=== PATIENT | male | born 1960 | race Caucasian/White ===

== ENCOUNTER 2021-06-21 13:14 | Inpatient (IN) ==
[2021-06-21] MEDS ORDERED: SODIUM CHLORIDE 0.9% 250 ML IV PRN ×2 (13:35→14:15)
[2021-06-21] MEDS ORDERED: SODIUM CHLORIDE 0.9% 1000ML 2,000 ML IV SCH (13:45)
--- NOTE | 2021-06-21 14:11 | XRay Report ---
XR chest 1V portable CLINICAL HISTORY: Weakness. Confusion. COMPARISON STUDY: No previous studies for comparison. FINDINGS: Diffuse sclerosis of the visualized skeletal structures is noted. Cardiac size is normal. N o pneumothorax or pleural effusion is present. No evidence for pulmonary edema. Equivocal left midlun g opacity is present. Old fracture of the posterolateral right fifth rib is present. IMPRESSION: 1. Skeletal heterogeneity and sclerosis. This is suspicious for metastatic disease such as prostate c arcinoma. 2. Equivocal left midlung opacity. This is likely artifactual or related to rib lesions however airsp neris disease could appear similar. This can be assessed on follow-up radiographs. ACT 112: Negative or not required by law. Electronically signed by: Tobi Hutson M.D. 06/21/2021 2:10 PM
[2021-06-21 14:14] LABS: Hematocrit (blood only) 19.3 % (42-52); Hemoglobin 6.2 g/dL (14.0-18.0); Mean Corpuscular Hgb Conc 32.1 g/dL (32-36); Mean Corpuscular Volume 83.9 fL (80-100); RDW Coefficient of Variation 16.1 % (11.5-14.5); RDW Standard Deviation 48.7 fL (36.4-46.3); White Blood Count 11.25 K/uL (4.8-10.8)
[2021-06-21 14:25] LABS: Alanine Aminotransferase 8 U/L (7-52); Albumin Globulin Ratio 0.8 (0.9-2); Alkaline Phosphatase 317 U/L (34-104); Anion Gap 16 (3-11); Aspartate Aminotransferase 19 U/L (13-39); BUN Creatinine Ratio 25.6 (10-20); Bilirubin,Total 0.6 mg/dl (0.2-1.0); Blood Urea Nitrogen 34 mg/dl (6-23); Calcium 8.3 mg/dl (8.5-10.1); Carbon Dioxide 18 mmol/L (21-32); Chloride 99 mmol/L (98-107); Est GFR (African American) 66.4 ml/min; Est GFR (Non-African American) 57.3 ml/min; Globulin 3.9 gm/dl (2.5-4.0); Glucose 190 mg/dl (70-99(Fasting)); Magnesium 2.2 mg/dl (1.7-2.4); Mean Platelet Volume 9.4 fL (7.4-10.4); Nucleated RBC # (auto) 0.19 K/uL (0-0); Nucleated RBC % (auto) 1.7 %; Platelet Count 83 K/uL (130-400); Potassium 4.2 mmol/L (3.5-5.1); Sodium 133 mmol/L (136-145); Total Protein 6.9 gm/dl (6.0-8.3)
[2021-06-21 14:26] LABS: Basophils # (auto) 0.02 K/uL (0-0.2); Basophils % (auto) 0.2 %; Eosinophils # (auto) 0.02 K/uL (0-0.5); Eosinophils % (auto) 0.2 %; Immature Granulocytes # (auto) 0.87 K/uL (0.00-0.02); Immature Granulocytes % (auto) 7.7 %; Lymphocytes # (auto) 1.13 K/uL (1.2-3.4); Monocytes # (auto) 0.43 K/uL (0.11-0.59); Monocytes % (auto) 3.8 %; Neutrophils # (auto) 8.78 K/uL (1.4-6.5); Neutrophils % (auto) 78.1 %; Platelet Estimate Decreased (Normal)
[2021-06-21] MEDS ORDERED: OPTIRAY 320 100ml IV ONE (15:40)
--- NOTE | 2021-06-21 15:56 | Emergency Department Note ---
Impression & Plan Gross hematuria, Hip pain, bilateral, Hyponatremia, Bone metastasis ED Provider Note CHIEF COMPLAINT: Weakness, cory metastasis. HISTORY OF PRESENT ILLNESS: This 61 yo male patient presents to the emergency department with complaints of generalized weakness, hip pain and gross hematuria. Patient states he has lost a significant amount of weight. He was here several weeks ago and diagnosed with abnormal imaging of his hips. It appears that the patient may have metastatic process in both hips on plain film. Patient states he does not have a doctor but has recently tried to set up with a physician and believes he is scheduled to see them tomorrow in the [facility] system. 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 Patient works for the [employer]. Patient states he is very weak and having great difficulty getting to the bathroom. He states he has on occasion lost control of his bladder, which he attributes to weakness and inability to get to the bathroom. Denies fevers, chills, chest pain, shortness of breath. REVIEW OF SYSTEMS: A review of systems was performed with positives and pe rtinent negatives listed in the history of present illness. 10 systems were reviewed and are otherwise negative. ALLERGIES: see below MEDICATIONS: see below PMH: see below SOCIAL HISTORY: see below DDx: Renal colic, UTI, hemorrhagic prostate, bladder mass, appendicitis, diverticulitis, mesenteric ischemia, aortic pathology, infections, inflammatory bowel disease, PUD, biliary pathology, as well as other pathologies. PHYSICAL EXAM: Vital signs reviewed. General: Chronically ill-appearing, thin and frail 61-year-old male, in no significant distress. HEENT: No scleral icterus, PERRLA, neck supple. Pale conjunctiva Cardiovascular: Tachycardic but regular, no extra sounds. Pulmonary: Clear to auscultation bilaterally, normal work of breathing. Abdomen: Soft, nontender, nondistended, positive bowel sounds. Musculoskeletal: Atraumatic, no peripheral edema. Neurologic: Patient awake alert and oriented x 3, speech is clear Skin: Warm, dry, no rash EMERGENCY DEPARTMENT COURSE/MDM: Patient was evaluated and appeared to be in no significant distress. IV access was obtained and laboratory work was drawn. Patient was placed on a color television console monitor and appeared to be in a sinus ta chycardia with hypotension. Patient's laboratory work reveals anemia with a hemoglobin of 7.7. The patient is also noted to be hypotensive into the 80s systolic. Patient was consented for PRBCs. 1 unit was started in the emergency department. Patient will require hospitalization as he does not have a current primary care provider or oncologist. He does not have a definitive diagnosis. Patient's case was discussed with hospitalist service who will evaluate the patient for admission and further management. MONITORING: An order for cardiac monitoring was placed and the patient is noted to be in a sinus tachycardia at 108 beats per minute. RADIOLOGY: See below EKG: Sinus tachycardia 101 bpm. Normal axis, normal ST segments. Normal QTC. No PVC, no PAC. DISPOSITION: Admission Past Med/Surg History Medical History (Updated 06/29/21 @ 23:34 by Dorita Orta MD) Bladder cancer metastasized to bone No pertinent past medical history Surgical History No pertinent past surgical history Family History Mother Bone cancer Father Throat cancer Social History Smoking Status: Current every day smoker Tobacco Type: Cigarettes Cigarettes Per Day: 20; Hx Alcohol Use: Yes Alcohol type: beer Alcohol Intake Frequency: 4 or More x per/Week Alcohol Intake Frequency Comment: 2-3 beers/day Hx Substance Use: No Preferred Language: French Communication Ability: Effective 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 Beliefs That Will Affect Care: None Current Living Situation: Alone How many Children do You have: 0 Other Information That Helps Us Care for You: No Feels Safe at Home: Yes Safety Concerns: Feels Safe At This Time Assistive Devices: None Allergies Allergies Allergy/AdvReac Type Severity Reaction Status Date / Time No Known Allergies Allergy Unverified 06/21/21 15:06 Home Meds Home Medications Medication Instructions Recorded Confirmed No Known Home Medications 06/21/21 06/21/21 Results & Data (ED) Vital Signs Vital Signs - 24 hr 06/21/21 13:18 06/21/21 14:08 06/21/21 14:09 Temperature 36.5 C Temperature Source Temporal Artery Scan Pulse Rate 113 H Pulse Rate [Apical] 102 H Pulse Rhythm [Apical] Regular Respiratory Rate 19 20 Respiratory Effort / Characteristics Non-Labored Spontaneous Non-Labored Respiratory Depth Normal Normal Respiratory Pattern Regular Blood Pressure 88/50 L Blood Pressure Mean 62 Blood Pressure Position Sitting Pulse Oximetry 99 99 99 Oxygen Delivery Method Room Air Room Air Room Air Sepsis Recent Fever Within 48 Hours No Sepsis New/Unexplained Change in Mental Status N/A Sepsis Action Taken by Nursing Physician Notified Home Medications Current Medication List: was personally reviewed by me Laboratory Data Attestation: I reviewed the patient's lab results. Result diagrams: 06/29/21 07:28 06/29/21 07:28 Lab Results 06/21/21 06/21/21 06/21/21 Range/Units 13:45 13:45 13:45 WBC 11.25 H (4.8-10.8) K/uL RBC 2.30 L (4.7-6.1) M/uL Hgb 6.2 L* (14.0-18.0) g/dL Hct 19.3 L* (42-52) % MCV 83.9 (80-100) fL MCH 27.0 (25-34) pg MCHC 32.1 (32-36) g/dL RDW Std Deviation 48.7 H (36.4-46.3) fL RDW Coeff of Marva 16.1 H (11.5-14.5) % Plt Count 83 L (130-400) K/uL MPV 9.4 (7.4-10.4) fL Immature Gran % (Auto) 7.7 % Neut % (Auto) 78.1 % Lymph % (Auto) 10.0 % Perry % (Auto) 3.8 % Eos % (Auto) 0.2 % Baso % (Auto) 0.2 % Neut # (Auto) 8.78 H (1.4-6.5) K/uL Lymph # (Auto) 1.13 L (1.2-3.4) K/uL Perry # (Auto) 0.43 (0.11-0.59) K/uL Eos # (Auto) 0.02 (0-0.5) K/uL Baso # (Auto) 0.02 (0-0.2) K/uL Immature Gran # (Auto) 0.87 H (0.00-0.02) K/uL Absolute Nucleated RBC 0.19 H (0-0) K/uL Nucleated RBC % (auto) 1.7 % Platelet Estimate Decreased L (Normal) Sodium 133 L (136-145) mmol/L Potassium 4.2 (3.5-5.1) mmol/L Chloride 99 (98-107) mmol/L Carbon Dioxide 18 L (21-32) mmol/L Anion Gap 16 H (3-11) BUN 34 H (6-23) mg/dl Creatinine 1.33 (0.6-1.4) mg/dl Est Cr Clr Drug Dosing Not Reportable Est GFR ( Amer) 66.4 ml/min Est GFR (Non-Af Amer) 57.3 ml/min BUN/Creatinine Ratio 25.6 H (10-20) Glucose 190 H (70-99(Fasting)) mg/dl Lactate 4.8 H* (0.4-2.0) mmol/L Calcium 8.3 L (8.5-10.1) mg/dl Magnesium 2.2 (1.7-2.4) mg/dl Total Bilirubin 0.6 (0.2-1.0) mg/dl AST 19 (13-39) U/L ALT 8 (7-52) U/L Alkaline Phosphatase 317 H (34-104) U/L Total Protein 6.9 (6.0-8.3) gm/dl Albumin 3.0 L (3.4-5.0) gm/dl Globulin 3.9 (2.5-4.0) gm/dl Albumin/Globulin Ratio 0.8 L (0.9-2) Prostate Specific Ag (0-4) ng/ml TSH (0.300-4.500) uIu/ml SARS-CoV-2, RNA, NAAT (NEGATIVE) Blood Type Blood Type Recheck Antibody Screen Crossmatch 06/21/21 06/21/21 06/21/21 Range/Units 13:45 13:48 14:33 WBC (4.8-10.8) K/uL RBC (4.7-6.1) M/uL Hgb (14.0-18.0) g/dL Hct (42-52) % MCV (80-100) fL MCH (25-34) pg MCHC (32-36) g/dL RDW Std Deviation (36.4-46.3) fL RDW Coeff of Marva (11.5-14.5) % Plt Count (130-400) K/uL MPV (7.4-10.4) fL Immature Gran % (Auto) % Neut % (Auto) % Lymph % (Auto) % Perry % (Auto) % Eos % (Auto) % Baso % (Auto) % Neut # (Auto) (1.4-6.5) K/uL Lymph # (Auto) (1.2-3.4) K/uL Perry # (Auto) (0.11-0.59) K/uL Eos # (Auto) (0-0.5) K/uL Baso # (Auto) (0-0.2) K/uL Immature Gran # (Auto) (0.00-0.02) K/uL Absolute Nucleated RBC (0-0) K/uL Nucleated RBC % (auto) % Platelet Estimate (Normal) Sodium (136-145) mmol/L Potassium (3.5-5.1) mmol/L Chloride (98-107) mmol/L Carbon Dioxide (21-32) mmol/L Anion Gap (3-11) BUN (6-23) mg/dl Creatinine (0.6-1.4) mg/dl Est Cr Clr Drug Dosing Est GFR ( Amer) ml/min Est GFR (Non-Af Amer) ml/min BUN/Creatinine Ratio (10-20) Glucose (70-99(Fasting)) mg/dl Lactate (0.4-2.0) mmol/L Calcium (8.5-10.1) mg/dl Magnesium (1.7-2.4) mg/dl Total Bilirubin (0.2-1.0) mg/dl AST (13-39) U/L ALT (7-52) U/L Alkaline Phosphatase (34-104) U/L Total Protein (6.0-8.3) gm/dl Albumin (3.4-5.0) gm/dl Globulin (2.5-4.0) gm/dl Albumin/Globulin Ratio (0.9-2) Prostate Specific Ag (0-4) ng/ml TSH 4.137 (0.300-4.500) uIu/ml SARS-CoV-2, RNA, NAAT (NEGATIVE) Blood Type A Negative Blood Type Recheck A Negative Antibody Screen NEGATIVE Crossmatch See Detail 06/21/21 06/21/21 Range/Units 14:33 14:33 WBC (4.8-10.8) K/uL RBC (4.7-6.1) M/uL Hgb (14.0-18.0) g/dL Hct (42-52) % MCV (80-100) fL MCH (25-34) pg MCHC (32-36) g/dL RDW Std Deviation (36.4-46.3) fL RDW Coeff of Marva (11.5-14.5) % Plt Count (130-400) K/uL MPV (7.4-10.4) fL Immature Gran % (Auto) % Neut % (Auto) % Lymph % (Auto) % Perry % (Auto) % Eos % (Auto) % Baso % (Auto) % Neut # (Auto) (1.4-6.5) K/uL Lymph # (Auto) (1.2-3.4) K/uL Perry # (Auto) (0.11-0.59) K/uL Eos # (Auto) (0-0.5) K/uL Baso # (Auto) (0-0.2) K/uL Immature Gran # (Auto) (0.00-0.02) K/uL Absolute Nucleated RBC (0-0) K/uL Nucleated RBC % (auto) % Platelet Estimate (Normal) Sodium (136-145) mmol/L Potassium (3.5-5.1) mmol/L Chloride (98-107) mmol/L Carbon Dioxide (21-32) mmol/L Anion Gap (3-11) BUN (6-23) mg/dl Creatinine (0.6-1.4) mg/dl Est Cr Clr Drug Dosing Est GFR ( Amer) ml/min Est GFR (Non-Af Amer) ml/min BUN/Creatinine Ratio (10-20) Glucose (70-99(Fasting)) mg/dl Lactate (0.4-2.0) mmol/L Calcium (8.5-10.1) mg/dl Magnesium (1.7-2.4) mg/dl Total Bilirubin (0.2-1.0) mg/dl AST (13-39) U/L ALT (7-52) U/L Alkaline Phosphatase (34-104) U/L Total Protein (6.0-8.3) gm/dl Albumin (3.4-5.0) gm/dl Globulin (2.5-4.0) gm/dl Albumin/Globulin Ratio (0.9-2) Prostate Specific Ag 0.874 (0-4) ng/ml TSH (0.300-4.500) uIu/ml SARS-CoV-2, RNA, NAAT NEGATIVE (NEGATIVE) Blood Type Blood Type Recheck Antibody Screen Crossmatch Administered Medications Acetaminophen (Acetaminophen 325 Mg Tab) 650 mg PO Q4H PRN PRN Reason: Pain or Fever Stop: 07/21/21 21:18 Last Admin: 06/26/21 08:28 Dose: 650 mg Documented by: [id number] Admin: 06/25/21 20:37 Dose: 650 mg Documented by: [id number] Admin: 06/25/21 11:14 Dose: 650 mg Documented by: [id number] Admin: 06/24/21 23:26 Dose: 650 mg Documented by: [id number] Admin: 06/23/21 07:18 Dose: 650 mg Documented by: [id number] Admin: 06/22/21 11:45 Dose: 650 mg Documented by: [id number] Diclofenac Sodium (Diclofenac Sod 1% Gel 100 Gm Tube) 4 gm EXT Q8H TONG Stop: 07/28/21 11:44 Last Admin: 06/29/21 21:06 Dose: 4 gm Documented by: [id number] Admin: 06/29/21 13:06 Dose: 4 gm Documented by: [id number] Admin: 06/29/21 03:07 Dose: 4 gm Documented by: [id number] Admin: 06/28/21 20:11 Dose: 4 gm Documented by: [id number] Admin: 06/28/21 13:53 Dose: 4 gm Documented by: [id number] Gabapentin (Gabapentin 300 Mg Cap) 300 mg PO HS TONG Stop: 07/27/21 20:59 Last Admin: 06/29/21 21:07 Dose: 300 mg Documented by: [id number] Admin: 06/28/21 20:11 Dose: 300 mg Documented by: [id number] Admin: 06/27/21 21:49 Dose: 300 mg Documented by: [id number] Lidocaine (Lidocaine 5% 1 Patch) 1 patch TD QAM TONG Stop: 07/23/21 11:59 Last Admin: 06/29/21 08:28 Dose: 1 patch Documented by: [id number] Admin: 06/28/21 08:03 Dose: 1 patch Documented by: [id number] Admin: 06/27/21 08:42 Dose: 1 patch Documented by: [id number] Admin: 06/26/21 08:28 Dose: 1 patch Documented by: [id number] Admin: 06/25/21 08:44 Dose: 1 patch Documented by: [id number] Admin: 06/24/21 07:11 Dose: 1 patch Documented by: [id number] Admin: 06/23/21 12:34 Dose: 1 patch Documented by: [id number] Metoprolol Tartrate (Metoprolol Tartrate 25 Mg Tab) 25 mg PO BID [facility] Stop: 07/29/21 20:59 Last Admin: 06/29/21 21:07 Dose: 25 mg Documented by: [id number] Miscellaneous (Remove Lidoderm Patch) 1 ea N/A DAILY@2100 [facility] Stop: 07/23/21 20:59 Last Admin: 06/29/21 21:07 Dose: 1 ea Documented by: [id number] Admin: 06/28/21 20:13 Dose: 1 ea Documented by: [id number] Admin: 06/27/21 21:51 Dose: 1 ea Documented by: [id number] Admin: 06/26/21 21:33 Dose: 1 ea Documented by: [id number] Admin: 06/25/21 21:29 Dose: 1 ea Documented by: [id number] Admin: 06/24/21 21:15 Dose: 1 ea Documented by: [id number] Admin: 06/23/21 21:21 Dose: 1 ea Documented by: [id number] Nicotine (Nicotine 14 Mg/24 Hr Patch) 14 mg TD QAM [facility] Stop: 07/29/21 10:59 Last Admin: 06/29/21 13:06 Dose: Not Given Documented by: [id number] Oxycodone HCl (Oxycodone Hcl Ir 5 Mg Tab (Immediate Release)) 5 mg PO Q4H PRN PRN Reason: Severe Pain Stop: 07/10/21 08:10 Last Admin: 06/29/21 21:08 Dose: 5 mg Documented by: [id number] Admin: 06/29/21 15:54 Dose: 5 mg Documented by: [id number] Admin: 06/29/21 08:26 Dose: 5 mg Documented by: [id number] Admin: 06/29/21 03:06 Dose: 5 mg Documented by: [id number] Admin: 06/28/21 17:58 Dose: 5 mg Documented by: [id number] Oxycodone HCl (Oxycodone Hcl 10 Mg Tabcr (Oxycontin)) 10 mg PO Q12H TONG Stop: 07/13/21 10:59 Last Admin: 06/29/21 23:07 Dose: 10 mg Documented by: [id number] Admin: 06/29/21 13:06 Dose: 10 mg Documented by: [id number] Senna/Docusate Sodium (Docusate Sodium/Senna 50/8.6mg Tab) 1 tab PO BID [facility] Stop: 07/29/21 20:59 Last Admin: 06/29/21 21:08 Dose: 1 tab Documented by: [id number] Discontinued Medications Acetaminophen (Acetaminophen 325 Mg Tab) 650 mg PO NOW STA Stop: 06/22/21 01:01 Last Admin: 06/22/21 01:07 Dose: 650 mg Documented by: [id number] Flumazenil (Flumazenil 0.1 Mg/1 Ml 10 Ml Vial) Confirm Administered Dose 1 mg IV .STK-MED ONE Stop: 06/24/21 13:12 Last Admin: 06/24/21 14:32 Dose: Not Given Documented by: [id number] Sodium Chloride (Nss 1000ml) 2,000 mls @ 999 mls/hr IV .Q2H1M TONG Stop: 06/21/21 15:45 Last Infusion: 06/21/21 17:48 Dose: 0 mls/hr Documented by: [id number] Admin: 06/21/21 14:12 Dose: 999 mls/hr Documented by: [id number] Sodium Chloride (Nss 1000ml) 500 mls @ 999 mls/hr IV .Q31M ONE Stop: 06/22/21 16:38 Last Infusion: 06/22/21 17:00 Dose: 0 mls/hr Documented by: [id number] Admin: 06/22/21 16:29 Dose: 999 mls/hr Documented by: [id number] Ciprofloxacin (Cipro / D5w) 400 mg in 200 mls @ 100 mls/hr IV PREOP TONG; Protocol Stop: 06/25/21 09:59 Last Infusion: 06/25/21 09:17 Dose: 0 mls/hr Documented by: [id number] Admin: 06/25/21 06:15 Dose: 100 mls/hr Documented by: [id number] Infusion: 06/24/21 14:12 Dose: 0 mls/hr Documented by: [id number] Admin: 06/24/21 12:02 Dose: 100 mls/hr Documented by: [id number] Ioversol (Optiray 320 100ml) 92 ml IV ONCE ONE Stop: 06/21/21 15:41 Last Admin: 06/21/21 15:44 Dose: 92 ml Documented by: [id number] Metoprolol Tartrate (Metoprolol Tartrate 25 Mg Tab) 12.5 mg PO BID [facility] Stop: 07/28/21 10:29 Last Admin: 06/29/21 08:27 Dose: 12.5 mg Documented by: [id number] Admin: 06/28/21 20:11 Dose: 12.5 mg Documented by: [id number] Admin: 06/28/21 13:53 Dose: 12.5 mg Documented by: [id number] Ondansetron HCl (Ondansetron 4 Mg Od Tab) 8 mg PO TODAY@1200 [facility] Stop: 06/29/21 19:00 Last Admin: 06/29/21 13:06 Dose: 8 mg Documented by: [id number] Oxycodone HCl (Oxycodone Hcl Ir 5 Mg Tab (Immediate Release)) 5 mg PO Q6H PRN PRN Reason: Severe Pain Stop: 07/10/21 08:10 Last Admin: 06/28/21 08:03 Dose: 5 mg Documented by: [id number] Admin: 06/27/21 21:49 Dose: 5 mg Documented by: [id number] Admin: 06/27/21 14:17 Dose: 5 mg Documented by: [id number] Admin: 06/27/21 06:42 Dose: 5 mg Documented by: [id number] Admin: 06/26/21 16:37 Dose: 5 mg Documented by: [id number] Admin: 06/26/21 10:06 Dose: 5 mg Documented by: [id number] Senna/Docusate Sodium (Docusate Sodium/Senna 50/8.6mg Tab) 1 tab PO QAM [facility] Stop: 07/26/21 08:59 Last Admin: 06/29/21 08:28 Dose: Not Given Documented by: [id number] Admin: 06/28/21 08:06 Dose: Not Given Documented by: [id number] Admin: 06/27/21 08:42 Dose: 1 tab Documented by: [id number] Admin: 06/26/21 10:06 Dose: 1 tab Documented by: [id number] Tramadol HCl (Tramadol Hcl 50 Mg Tablet) 50 mg PO Q4H PRN PRN Reason: Severe Pain Stop: 07/23/21 11:49 Last Admin: 06/25/21 07:46 Dose: 50 mg Documented by: [id number] Admin: 06/24/21 21:15 Dose: 50 mg Documented by: [id number] Admin: 06/24/21 14:32 Dose: 50 mg Documented by: [id number] Admin: 06/24/21 07:13 Dose: 50 mg Documented by: [id number] Tramadol HCl (Tramadol Hcl 50 Mg Tablet) 50 mg PO Q4H PRN PRN Reason: Moderate Pain Stop: 07/23/21 11:49 Last Admin: 06/27/21 12:31 Dose: 50 mg Documented by: [id number] Imaging Data Radiologist's Impression: Chest X-Ray 06/21/21 13:34 XR chest 1V portable CLINICAL HISTORY: Weakness. Confusion. COMPARISON STUDY: No previous studies for comparison. FINDINGS: Diffuse sclerosis of the visualized skeletal structures is noted. Cardiac size is normal. No pneumothorax or pleural effusion is present. No evidence for pulmonary edema. Equivocal left midlung opacity is present. Old fracture of the posterolateral right fifth rib is present. IMPRESSION: 1. Skeletal heterogeneity and sclerosis. This is suspicious for metastatic disease such as prostate carcinoma. 2. Equivocal left midlung opacity. This is likely artifactual or related to rib lesions however airspace disease could appear similar. This can be assessed on follow-up radiographs. ACT 112: Negative or not required by law. Electronically signed by: Tobi Hutson M.D. 06/21/2021 2:10 PM ECG Data Attestation: I personally reviewed and interpreted this ECG as follows: (Sinus tachycardia 101 bpm. Normal QTC, normal ST segments. No PVC, no PAC.) Blood Pressure Blood Pressure Findings: Low blood pressure Blood Pressure Disposition: further management by hospitalist Discharge Plan Visit Data Chief Complaint: Shortness of Breath/Dyspnea Stated Complaint: SOB, SHOULDER PAIN, HIP PAIN, DIZZY ED Provider: Dorita Orta Discharge Problem: Gross hematuria, Hip pain, bilateral, Hyponatremia, Bone metastasis Patient Disposition: Admitted As Inpatient Discharge Instructions Interventions: ED Discharge Assessment Last Done: 06/21/21 19:36
--- NOTE | 2021-06-21 16:05 | CT Scan Report ---
CT SCAN OF THE CHEST WITH IV CONTRAST CLINICAL HISTORY: Anemia. Metastatic bone disease. Dyspnea. COMPARISON STUDY: Chest x-ray dated 06/21/2021. TECHNIQUE: Following the IV administration of 92 cc of Optiray 320, CT scan of the thorax was perform ed from the thoracic inlet to the upper abdomen. Images are reviewed in the axial, sagittal, and thuy nal planes. IV contrast was administered without complication. A dose lowering technique was utilize d adhering to the principles of ALARA. FINDINGS: Thyroid: Imaged portions of the thyroid gland are normal in size and attenuation. Thoracic aorta: There is mild atherosclerotic calcification of the thoracic aorta, which is normal in caliber and demonstrates standard 3-vessel arch anatomy. No dissection is seen. Pulmonary vasculature: The pulmonary trunk is normal in caliber. There are no filling defects identif ied in the central pulmonary vessels to indicate pulmonary embolus. Note that this examination was no t protocoled for evaluation of the pulmonary arteries. Heart: The heart is mildly enlarged and without pericardial effusion. The coronary arteries are dense ly calcified. Lungs and pleural spaces: Mild emphysematous change is identified. There is a small right pleural eff usion with dependent atelectasis. No airspace consolidation is seen typical for pneumonia. The trache a and central airways are clear. A 3 mm pleural-based nodule in the left upper lobe as seen on image #117. Foci of patchy nodularity in the left upper lobe measuring up to 4 mm is seen on image #108. Lower neck: There are mildly enlarged left supraclavicular lymph nodes. A union contract representative node on imag e #20 measures 1.7 x 1.1 cm. Mediastinum: A prominent pretracheal node on image #87 measures 12 mm in short axis. Kiesha: Mildly enlarged right hilar nodes measure up to 12 mm in short axis. Axillae: There are shotty axillary nodes which are not pathologically enlarged by size criteria. Upper abdomen: Bilateral hydronephrosis is partially visualized. Mildly enlarged cardiophrenic nodes measure up to 10 mm in short axis. Partially visualized upper abdominal viscera is within normal limi ts. Skeletal structures: There is evidence of extensive/diffuse osteoblastic metastatic disease seen thro ughout the bony thorax. There are pathologic fractures of the right anterior 2nd rib, the left sports bookmaker ior 8th rib, and the right transverse process of T9. There are minimal superior endplate compression deformities of T2 and T3. IMPRESSION: 1. Cardiomegaly and emphysema. 2. Small right pleural effusion. 3. There is evidence of extensive/diffuse osteoblastic metastatic disease as above. 4. Pathologic fractures as above. 5. There are mildly enlarged left supraclavicular, mediastinal, and right hilar lymph nodes. These ar e suspicious for metastatic disease. 6. There is a tiny cluster of nodules in the left upper lobe measuring up to 4 mm. These are likely o n an inflammatory basis. Attention at follow-up is recommended. 7. Bilateral hydronephrosis is partially visualized in the upper abdomen. 8. Additional findings as above ACT 112: Negative or not required by law. Electronically signed by: Celestino Chavez M.D. 06/21/2021 4:04 PM
--- NOTE | 2021-06-21 16:09 | CT Scan Report ---
ABDOMEN AND PELVIS CT WITH IV CONTRAST CT DOSE: 678.18 mGy.cm HISTORY: Acute weakness with shortness of breath mets CA, hematuria, anemia TECHNIQUE: Multiaxial CT images of the abdomen and pelvis were performed following the IV administrat ion of 92 cc of Optiray, A dose lowering technique was utilized adhering to the principles of ALARA. COMPARISON STUDY: Chest CT of same day FINDINGS: Imaged inferior cardiac chambers are unremarkable. Prominent epicardial lymph nodes. Trace left and s mall right pleural effusions. Mild subsegmental bibasilar atelectasis. No pneumatosis or pneumoperito neum. The spleen, pancreas and adrenal glands are unremarkable. The gallbladder and liver are within normal limits. Patency of the hepatic and portal veins. There is moderate to severe bilateral hydroureteronephrosis. Mild atrophy of the right kidney compare d to the left with right-sided delayed nephrogram. No urolith identified. There is irregular urinary bladder wall thickening with a mass involving greater than 50% of the urinary bladder wall, most pron ounced posteriorly and along the right lateral margin overall measuring up to approximately 11 x 2.4 cm. There is transmural spread of disease to the right lateral aspect of the urinary bladder into the right paracentral tissues. There are a few soft tissue nodules within the right perivesicular distri bution measuring up to 1.2 cm. Atherosclerosis of the aorta without aneurysm. Prominent iliac and ing uinal chain lymph nodes measure up to 8-9 mm. No bowel obstruction. Mild wall thickening of the rectum is likely secondary to partial distention. N o CT evidence of acute appendicitis. There is mild generalized body wall edema. Extensive osseous met astasis. No acute pathologic fracture identified. There is questioned anterior epidural spread of dis ease at L5. Moderate associated central canal stenosis. IMPRESSION: 1. Large infiltrative mass of the urinary bladder is suggestive of a primary malignancy which demonst rates transmural spread of disease into the right perivesicular tissues and right hemipelvis. There a re small adjacent soft tissue nodules compatible with local metastasis. 2. The mass results in obstruction of the distal ureters with moderate to severe bilateral hydrourete ronephrosis. There is a delayed right-sided nephrogram. 3. Extensive osseous metastatic disease with questioned anterior epidural disease at L5. No acute pat hologic fracture identified 4. Prominent subcentimeter iliac chain and inguinal lymph nodes are suspicious for lymphatic metastas is. 5. Please refer to chest CT of same day for additional findings. 6. Additional findings as above. ACT 112: Negative or not required by law. The above report was generated using voice recognition software. It may contain grammatical, syntax o r spelling errors. Electronically signed by: Miguel Rolon M.D. 06/21/2021 4:07 PM
--- NOTE | 2021-06-21 16:45 | History & Physical Report ---
Date of Service June 21, 2021 Assessment & Plan (1) Acute blood loss anemia: Plan: Admit to telemetry Patient presenting from home with reports of lightheadedness, dizziness, shortness of breath, hematuria. Seen in the ED a few weeks ago for bilateral hip pain. X-ray at that time showed osseous metastatic disease, patient referred for outpatient follow-up. Patient states that he made an appointment at [facility] clinic for 06/23. In the ED, Hgb 6.2 Likely acute blood loss anemia due to profound hematuria Initially hypotensive 88/50, improved after IVF Transfused unit PRBC, follow H&H (2) Bladder mass: (3) Osseous metastasis: Plan: CT ABD/pelvis shows Large infiltrative mass of the urinary bladder is suggestive of a primary malignancy which demonstrates transmural spread of disease into the right perivesicular tissues and right hemipelvis. There are small adjacent soft tissue nodules compatible with local metastasis. The mass results in obstruction of the distal ureters with moderate to severe bilateral hydroureteronephrosis. There is a delayed right-sided nephrogram. Extensive osseous metastatic disease with questioned anterior epidural disease at L5. No acute pathologic fracture identified. Prominent subcentimeter iliac chain and inguinal lymph nodes are suspicious for lymphatic metastasis. CT chest shows evidence of extensive/diffuse osteoblastic metastatic disease. There are mildly enlarged left supraclavicular, mediastinal, and right hilar lymph nodes. These are suspicious for metastatic disease. There is a tiny cluster of nodules in the left upper lobe measuring up to 4 mm. These are likely on an inflammatory basis. Attention at follow-up is recommended. Place Mclaughlin Check PSA Urology consult NPO after midnight for possible biopsy (4) Lactic acidosis: Plan: Lactic acid 4.8 --> 1.3 Hypovolemia, underlying malignancy likely contributing No infectious source identified to suggest sepsis (5) Thrombocytopenia: Plan: Platelets 83K Likely due to underlying malignancy Follow CBC (6) Cardiomegaly: Plan: Noted on CT chest, check echo (7) DVT prophylaxis: Plan: SCDs due to hematuria, anemia History of Present Illness Chief Complaint: Lightheadedness, dizziness, urinating blood Primary Care Provider: NO PCP 61-year-old male without significant past medical or surgical history who presents the ED for evaluation of lightheadedness, dizziness, urinating blood. Patient seen in the ED on 2/24 for complaints of bilateral hip pain. Hip x-ray showed evidence of bony metastatic disease. Patient was discharged home and advised for outpatient follow-up. Patient reports he has an appointment at [facility] in a couple of days. Patient reports ongoing " pain all over". This morning, patient reports he was very lightheaded and dizzy and short of breath. He has been urinating blood for the past 2 to 3 weeks. Reports passing clots that have been difficult to pass at times. He has been urinating frequently. He notes a large weight loss however cannot quantify the amount for me. Denies chest pain. No abdominal pain, nausea, vomiting, diarrhea. In the ED, labs show Hgb 6.2, platelets 83, creatinine 1.3, lactic acid 4.8. CT ABD/pelvis shows large infiltrative mass of the urinary bladder. Patient was initially hypotensive at 88/50, this improved with IVF. Patient was typed and crossed for 2 unit PRBC. Allergies Allergy/AdvReac Type Severity Reaction Status Date / Time No Known Allergies Allergy Unverified 06/21/21 15:06 Home Medications Medication Instructions Recorded Confirmed Type No Known Home Medications 06/21/21 06/21/21 History Past Med/Surg History Medical History No pertinent past medical history Surgical History No pertinent past surgical history Family History (Updated 06/21/21 @ 16:46 by JORDAN Nicholson) Mother Bone cancer Father Throat cancer Social History (Updated 06/21/21 @ 16:50 by JORDAN Nicholson) Smoking Status: Current every day smoker Tobacco Type: Cigarettes Hx Alcohol Use: Yes Alcohol type: beer Alcohol Intake Frequency: 4 or More x per/Week Alcohol Intake Frequency Comment: 2-3 beers/day Preferred Language: Chinese Feels Safe at Home: Yes Review of Systems Review of Systems: ROS per HPI, all other systems reviewed and negative Physical Exam Constitutional: WD/WN, vitals as above Eyes: PERRL, conjunctivae normal, anicteric sclerae ENMT: external ear and nose normal, oropharynx normal Respiratory: normal respiratory effort, lungs clear to auscultation Cardiovascular: Rate/Rhythm: regular rate and regular rhythm Vessels: normal peripheral pulses Extremities: no edema Gastrointestinal (Abdomen): normal bowel sounds, soft, nontender, no hepatosplenomegaly Musculoskeletal: Extremities: no cyanosis and no clubbing Lower extremity range of motion and movement limited due to pain Skin: no rashes, warm and dry Neurologic: PERRL, EOMI, accommodation nl, no face palsy, no dysarthria Psychiatric: A+Ox3, euthymic affect Results & Data Results & Data ([place]) Vital Signs (Past 12 Hours) Vital Signs Temp Pulse Pulse Resp BP Pulse Ox 06/21/21 16:00 36.6 C 99 H 18 119/66 99 06/21/21 14:09 102 H 20 99 06/21/21 14:08 99 06/21/21 13:18 36.5 C 113 H 19 88/50 L 99 Laboratory Results Short CBC 06/21/21 Range/Units 13:45 WBC 11.25 H (4.8-10.8) K/uL Hgb 6.2 L* (14.0-18.0) g/dL Hct 19.3 L* (42-52) % Plt Count 83 L (130-400) K/uL BMP 06/21/21 13:45 Sodium 133 L Potassium 4.2 Chloride 99 Carbon Dioxide 18 L BUN 34 H Creatinine 1.33 Glucose 190 H Calcium 8.3 L Liver Function 06/21/21 Range/Units 13:45 Total Bilirubin 0.6 (0.2-1.0) mg/dl AST 19 (13-39) U/L ALT 8 (7-52) U/L Alkaline Phosphatase 317 H (34-104) U/L Albumin 3.0 L (3.4-5.0) gm/dl Diagnostic Findings Chest X-Ray 06/21/21 13:34 XR chest 1V portable CLINICAL HISTORY: Weakness. Confusion. COMPARISON STUDY: No previous studies for comparison. FINDINGS: Diffuse sclerosis of the visualized skeletal structures is noted. Cardiac size is normal. No pneumothorax or pleural effusion is present. No evidence for pulmonary edema. Equivocal left midlung opacity is present. Old fracture of the posterolateral right fifth rib is present. IMPRESSION: 1. Skeletal heterogeneity and sclerosis. This is suspicious for metastatic disease such as prostate carcinoma. 2. Equivocal left midlung opacity. This is likely artifactual or related to rib lesions however airspace disease could appear similar. This can be assessed on follow-up radiographs. ACT 112: Negative or not required by law. Electronically signed by: Tobi Hutson M.D. 06/21/2021 2:10 PM Abdomen/Pelvis CT 06/21/21 15:[address] WITH IV CONTRAST CT DOSE: 678.18 mGy.cm HISTORY: Acute weakness with shortness of breath mets CA, hematuria, anemia TECHNIQUE: Multiaxial CT images of the abdomen and pelvis were performed following the IV administration of 92 cc of Optiray, A dose lowering technique was utilized adhering to the principles of ALARA. COMPARISON STUDY: Chest CT of same day FINDINGS: Imaged inferior cardiac chambers are unremarkable. Prominent epicardial lymph nodes. Trace left and small right pleural effusions. Mild subsegmental bibasilar atelectasis. No pneumatosis or pneumoperitoneum. The spleen, pancreas and adrenal glands are unremarkable. The gallbladder and liver are within normal limits. Patency of the hepatic and portal veins. There is moderate to severe bilateral hydroureteronephrosis. Mild atrophy of the right kidney compared to the left with right-sided delayed nephrogram. No uro lith identified. There is irregular urinary bladder wall thickening with a mass involving greater than 50% of the urinary bladder wall, most pronounced posteriorly and along the right lateral margin overall measuring up to approximately 11 x 2.4 cm. There is transmural spread of disease to the right lateral aspect of the urinary bladder into the right paracentral tissues. There are a few soft tissue nodules within the right perivesicular distribution measuring up to 1.2 cm. Atherosclerosis of the aorta without aneurysm. Prominent iliac and inguinal chain lymph nodes measure up to 8-9 mm. No bowel obstruction. Mild wall thickening of the rectum is likely secondary to partial distention. No CT evidence of acute appendicitis. There is mild generalized body wall edema. Extensive osseous metastasis. No acute pathologic fracture identified. There is questioned anterior epidural spread of disease at L5. Moderate associated central canal stenosis. IMPRESSION: 1. Large infiltrative mass of the urinary bladder is suggestive of a primary malignancy which demonstrates transmural spread of disease into the right perivesicular tissues and right hemipelvis. There are small adjacent soft tissue nodules compatible with local metastasis. 2. The mass results in obstruction of the distal ureters with moderate to severe bilateral hydroureteronephrosis. There is a delayed right-sided nephrogram. 3. Extensive osseous metastatic disease with questioned anterior epidural disease at L5. No acute pathologic fracture identified 4. Prominent subcentimeter iliac chain and inguinal lymph nodes are suspicious for lymphatic metastasis. 5. Please refer to chest CT of same day for additional findings. 6. Additional findings as above. ACT 112: Negative or not required by law. The above report was generated using voice recognition software. It may contain grammatical, syntax or spelling errors. Electronically signed by: Miguel Rolon M.D. 06/21/2021 4:[address] 06/21/21 15:06 CT SCAN OF THE CHEST WITH IV CONTRAST CLINICAL HISTORY: Anemia. Metastatic bone disease. Dyspnea. COMPARISON STUDY: Chest x-ray dated 06/21/2021. TECHNIQUE: Following the IV administration of 92 cc of Optiray 320, CT scan of the thorax was performed from the thoracic inlet to the upper abdomen. Images are reviewed in the axial, sagittal, and coronal planes. IV contrast was administered without complication. A dose lowering technique was utilized adhering to the principles of ALARA. FINDINGS: Thyroid: Imaged portions of the thyroid gland are normal in size and attenuation. Thoracic aorta: There is mild atherosclerotic calcification of the thoracic aorta, which is normal in caliber and demonstrates standard 3-vessel arch anatomy. No dissection is seen. Pulmonary vasculature: The pulmonary trunk is normal in caliber. There are no filling defects identified in the central pulmonary vessels to indicate pulmonary embolus. Note that this examination was not protocoled for evaluation of the pulmonary arteries. Heart: The heart is mildly enlarged and without pericardial effusion. The coronary arteries are densely calcified. Lungs and pleural spaces: Mild emphysematous change is identified. There is a small right pleural effusion with dependent atelectasis. No airspace consolidation is seen typical for pneumonia. The trachea and central airways are clear. A 3 mm pleural-based nodule in the left upper lobe as seen on image #117. Foci of patchy nodularity in the left upper lobe measuring up to 4 mm is seen on image #108. Lower neck: There are mildly enlarged left supraclavicular lymph nodes. A hardware supplies sales representative node on image #20 measures 1.7 x 1.1 cm. Mediastinum: A prominent pretracheal node on image #87 measures 12 mm in short axis. Kiesha: Mildly enlarged right hilar nodes measure up to 12 mm in short axis. Axillae: There are shotty axillary nodes which are not pathologically enlarged by size criteria. Upper abdomen: Bilateral hydronephrosis is partially visualized. Mildly enlarged cardiophrenic nodes measure up to 10 mm in short axis. Partially visualized upper abdominal viscera is within normal limits. Skeletal structures: There is evidence of extensive/diffuse osteoblastic metastatic disease seen throughout the bony thorax. There are pathologic fractures of the right anterior 2nd rib, the left posterior 8th rib, and the right transverse process of T9. There are minimal superior endplate compression deformities of T2 and T3. IMPRESSION: 1. Cardiomegaly and emphysema. 2. Small right pleural effusion. 3. There is evidence of extensive/diffuse osteoblastic metastatic disease as above. 4. Pathologic fractures as above. 5. There are mildly enlarged left supraclavicular, mediastinal, and right hilar lymph nodes. These are suspicious for metastatic disease. 6. There is a tiny cluster of nodules in the left upper lobe measuring up to 4 mm. These are likely on an inflammatory basis. Attention at follow-up is recommended. 7. Bilateral hydronephrosis is partially visualized in the upper abdomen. 8. Additional findings as above ACT 112: Negative or not required by law. Electronically signed by: Celestino Chavez M.D. 06/21/2021 4:04 PM Code Status & VTE Plan Code Status Patient is a full code as per my discussion with him. Patient states that he does not have any family to identify as a decision-maker for him in the event he were to be unable to make decisions for himself. VTE Prophylaxis Plan VTE Prophylaxis will be ordered: Yes Supervising Physician Co-Signing Physician Notes Pt is a 61 y/o M with hx of possible prostate Ca/ cancer with metastasis admitted for symptomatic anemia. PE: Appeared fatigued Lungs: CTA, no wheezing or crackles Card: Normal S1/S2, no murmur Abd: ND, NT, Soft MSK: no swelling but pain with movement of b/l hips Psych: AAOx3, normal affect A/P: Hematuria with Symptomatic anemia and thrombocytopenia: -2/2 Possible metastatic bladder cancer (per imaging) - pt is currently receiving 2 units of PRBC - will trend cbc -Urology consult -will put a mclaughlin in -SCD for DVT PPx -Lactic acid is elevated likely due to anemia and hypotension - BP is improving - due to cardiomegaly will get echo Agree with A/P by JORDAN Nicholson
[2021-06-21 19:00] LABS: Appearance Urine Clear (Clear); Bilirubin Urine Negative (Negative); Blood Urine 3+ (Negative); Color Urine Red; Glucose Urine UA Negative (Negative); Ketones Urine Negative (Negative); Leukocyte Esterase Urine Negative (Negative); Nitrite Urine Negative (Negative); Protein Urine 3+ (Negative); Urobilinogen Urine Positive (Negative); pH Urine 5.5 (4.5-7.5)
[2021-06-21 19:03] LABS: Bacteria Urine Negative (Negative); Epithelial Cell Urine 0-5 /lpf (0-5); RBC Urine >30 /hpf (0-4)
--- NOTE | 2021-06-21 23:40 | Urology Consultation ---
Date of Consultation June 21, 2021 Assessment & Plan (1) Bladder mass: Patient has been admitted on the hospitalist service. Due to the patient's underlying bladder mass he will likely require a cystoscopy with possible biopsy and clot evacuation in the future. The timing of this procedure is yet to be determined as the patient requires stabilization of his blood counts. He did come into the hospital with marked anemia his current receiving transfusion of packed red blood cells. It would also be prudent to monitor patient's platelet count particularly if any biopsies will be performed. Recommend continued patient's Velasquez catheter. If the Velasquez catheter becomes clogged manual irrigation can be employed to evacuate any clots and ensure patency of his Velasquez catheter. Additional recommendations be forthcoming based on his clinical course as it unfolds History of Present Illness Reason for Consultation: 1. Hematuria 2. Bladder mass Attending Physician: Brigida Londono MD History of Present Illness This is a 61-year-old male who presented to the emergency department secondary to hematuria, generalized weakness, and lightheadedness. Patient was initially seen in [facility] emergency department on June 02 secondary to bilateral hip pain. At that time the patient had x- rays that showed concern for metastatic disease and patient was discharged with plans for outpatient follow-up. Patient has not received any follow-up from this visit. As noted above he presented to [facility] emergency department secondary to the above symptoms. I did question the patient about his hematuria and he said that this has been going "on and off" for several weeks. Patient said that he initially did not seek medical attention for this problem because it would oftentimes self resolve. Patient denies any dysuria. He feels as though when he urinates he can empty his bladder completely. He denies any fevers, shakes, chills. Patient says that he has been losing a significant amount of weight over the past several weeks but could not quantify the exact amount. Does report a history of smoking and is a current smoker. He denies any history of exposures to any chemicals, asbestos, or pesticides. Addition to the above complaints the patient also reports to generalized myalgias. Since presentation to the emergency department the patient has had labs and imaging which I independently reviewed. CBC revealed white blood cell count was 11.2. His hemoglobin and hematocrit were 6.2 and 19.3. Platelet count is noted to be 83,000. Chemistry profile showed sodium was 133. Potassium was normal. His BUN was elevated at 34 with a normal creatinine. The patient's bilirubin and transaminases were normal but he had an elevation of his alkaline phosphatase at 317. A PSA was checked and was noted be within the normal range. Urinalysis was not indicative of infection. A Covid test was noted be negative. Imaging has included a chest x-ray that showed suspicion for of metastatic disease (concerning for prostate carcinoma). CT scan of the abdomen and pelvis showed a large mass of an infiltrative nature in the urinary bladder which was suggestive of malignancy. There is concern for transmural spread of this mass. Multiple small soft tissue adjacent nodules were noted which were concerning for local metastases. Bilateral hydronephrosis was noted as the mass noted above resulted in obstruction of the distal ureters. There is extensive osseous metastatic disease noted. Prominent iliac lymph nodes were noted concerning for metastases. A chest CT scan was performed which showed concern for osteoblastic metastatic disease along with enlarged mediastinal, supraclavicular, and right hilar nodes concerning for metastases. The patient has had a Velasquez catheter placed which is draining red urine. He is also receiving transfusion of packed red blood cells to due to his noted anemia. At the time my interview he was resting comfortably in bed and he was in no distress. Allergies Allergy/AdvReac Type Severity Reaction Status Date / Time No Known Allergies Allergy Unverified 06/21/21 15:06 Home Medications Medication Instructions Recorded Confirmed Type No Known Home Medications 06/21/21 06/21/21 History Patient History Medical History No pertinent past medical history Surgical History No pertinent past surgical history Family History Mother Bone cancer Father Throat cancer Social History Smoking Status: Current every day smoker Tobacco Type: Cigarettes Cigarettes Per Day: 20; Hx Alcohol Use: Yes Alcohol type: beer Alcohol Intake Frequency: 4 or More x per/Week Alcohol Intake Frequency Comment: 2-3 beers/day Hx Substance Use: No Preferred Language: Bermudian Communication Ability: Effective Hairspring Inspector Required: No Beliefs That Will Affect Care: None Current Living Situation: Alone Other Information That Helps Us Care for You: No Feels Safe at Home: Yes Safety Concerns: Feels Safe At This Time Assistive Devices: Hearing Aid - Right and Walker Review of Systems Constitutional: + body aches, + fatigue, + weakness and + weight loss; no fever and no chills Eyes: no diplopia Ear, Nose, Mouth, Throat: no ear pain Respiratory: no cough and no dyspnea Cardiovascular: no chest pain Gastrointestinal: no abdominal pain, no nausea and no vomiting Genitourinary: + as per Subjective / HPI and + hematuria; no flank pain Musculoskeletal: + back pain Integumentary: no rash Neurologic: + generalized weakness; no localized weakness Physical Exam Constitutional: well developed and well nourished; no acute distress Eyes: no conjunctival abnormality ENMT: Ears: no hearing impairment Mouth: no oropharynx abnormality Neck: trachea midline Respiratory: normal respiratory effort; no respiratory distress and no labored breathing Cardiovascular: Rate/Rhythm: regular rate and regular rhythm Gastrointestinal (Abdomen): Soft, nontender, nondistended Musculoskeletal: No calf tenderness Skin: no rashes Neurologic: moves all extremities Psychiatric: A+Ox3, euthymic affect Genitourinary: no CVA tenderness Velasquez catheter is in place draining red- colored urine. The catheter did appear patent Results & Data ([facility]) Vital Signs (Past 12 Hours) Vital Signs Temp Pulse Pulse Resp BP BP BP 06/21/21 23:11 36.7 C 104 H 18 132/80 06/21/21 22:11 36.6 C 110 H 18 124/76 06/21/21 21:41 36.7 C 99 H 18 117/75 06/21/21 21:27 36.6 C 104 H 18 122/76 06/21/21 21:26 36.6 C 105 H 18 122/76 06/21/21 21:10 36.4 C L 105 H 18 123/75 06/21/21 20:03 36.7 C 108 H 18 156/68 H 06/21/21 19:36 60 18 125/65 06/21/21 19:11 98 H 18 124/69 06/21/21 18:20 37.3 C 97 H 14 121/71 06/21/21 17:46 92 H 18 119/71 06/21/21 16:19 36.8 C 68 18 132/96 06/21/21 16:00 36.6 C 99 H 18 119/66 06/21/21 14:09 102 H 20 06/21/21 14:08 06/21/21 13:18 36.5 C 113 H 19 88/50 L Pulse Ox 06/21/21 23:11 100 06/21/21 22:11 100 06/21/21 21:41 99 06/21/21 21:27 99 06/21/21 21:26 100 06/21/21 21:10 100 06/21/21 20:03 100 06/21/21 19:36 96 06/21/21 19:11 100 06/21/21 18:20 99 06/21/21 17:46 100 06/21/21 16:19 99 06/21/21 16:00 99 06/21/21 14:09 99 06/21/21 14:08 99 06/21/21 13:18 99 PG Care Time/CCT Total # of Minutes Spent Total Time Spent with Patient: Total time spent is greater than 50% in coordination of care (as documented) at patient's floor/unit and/or counseling patient: Coding Level of Care Code 67400 Inpt Consult Level 5 Diagnoses Bladder mass N32.89
[2021-06-22] MEDS ORDERED: ACETAMINOPHEN 325 MG TAB PO STA (01:00)
[2021-06-22 02:19] LABS: Hemoglobin 7.9 g/dL (14.0-18.0); Mean Corpuscular Hgb Conc 32.9 g/dL (32-36); Mean Corpuscular Volume 81.9 fL (80-100); Nucleated RBC # (auto) 0.23 K/uL (0-0); Nucleated RBC % (auto) 2.7 %; RDW Coefficient of Variation 16.1 % (11.5-14.5); RDW Standard Deviation 47.2 fL (36.4-46.3); Red Blood Count 2.93 M/uL (4.7-6.1); White Blood Count 8.37 K/uL (4.8-10.8)
[2021-06-22 02:35] LABS: Mean Platelet Volume 9.2 fL (7.4-10.4); Platelet Count 56 K/uL (130-400)
[2021-06-22 02:59] LABS: BUN Creatinine Ratio 33.3 (10-20); Creatinine Clr Calc Pharmacy 67.7 ml/min; Est GFR (African American) 94.9 ml/min; Est GFR (Non-African American) 81.9 ml/min
[2021-06-22 03:53] LABS: Blood Urine 3+ (Negative)
[2021-06-22 05:03] LABS: RBC Urine Automated >30 /hpf (0-4)
[2021-06-22] MEDS: ACETAMINOPHEN 325 MG TAB PO PRN (11:45)
--- NOTE | 2021-06-22 11:54 | Urology Progress Note ---
Date of Service June 22, 2021 Assessment & Plan (1) Bladder mass: Plan: The mass seen within his bladder on CT scan is suggestive of bladder cancer. There is additional lymphadenopathy within the pelvis. Scans also demonstrate osseous metastatic disease and supraclavicular and hilar lymph nodes on CT scan. I reviewed this information with the patient this morning. We discussed that the next step would be to obtain a tissue sample. Cystoscopy and transurethral resection in the OR would evaluate disease in the bladder, but would not provide an answer as to whether the metastatic disease is bladder cancer or if there is a possible second primary. He may require percutaneous biopsy of lymph node or other lesion to answer that question. We will hold off on any intervention today due to worsening hyponatremia, thrombocytopenia, pending blood cultures. Ideally he can be medically optimized prior to operative intervention. If we perform cystoscopy and transurethral resection, it will likely be only to obtain tissue for diagnosis, rather than perform a complete resection. (2) Gross hematuria: Plan: Urine is still draining well with current Velasquez catheter. For now, would mainta in the current catheter. If it becomes clogged, hand irrigation can be performed. If they are ongoing clots within the catheter, I recommend upsizing to a 24 [place] triple-lumen catheter, performing hand irrigation to clear any clots and starting continuous bladder irrigation. (3) Osseous metastasis: Plan: Underlying cause is not entirely clear. Bladder cancer appears most likely primary tumor as there are no other large lesions on CT scan. PSA of 0.8 argues this is not prostate cancer. Admission and Anticipated Discharge Date Admission Date: June 21, 2021 Subjective Patient was admitted last night Main complaint is pain in hips and shoulders and back Catheter was placed without any trouble, required irrigation once this morning. Continues to drain red urine. Received 2 units PRBCs for anemia with appropriate response. Blood cultures still pending Review of Systems Review of Systems: Recent weight loss Respiratory: No shortness of breath Genitourinary: + as per Subjective / HPI (Hematuria for 2 months, some clots overnight) Musculoskeletal: Pain in the shoulder back Physical Exam Constitutional: Diaphoretic, fatigued Eyes: Conjugate gaze Respiratory: Breathing comfortably on room air Genitourinary: Velasquez catheter in position, draining red urine. No clots appreciated in the line or the bag. Results & Data ([facility]) Vital Signs (Past 12 Hours) Vital Signs Temp Pulse Pulse Resp BP BP Pulse Ox 06/22/21 07:58 37.6 C H 120 H 14 135/69 95 06/22/21 03:26 37.3 C 110 H 20 136/70 94 06/22/21 01:19 38.7 C H 121 H 20 143/77 H 92 06/22/21 00:46 38.7 C H 116 H 20 137/78 96 06/22/21 00:31 37.5 C 117 H 18 142/78 H 98 06/22/21 00:14 36.9 C 115 H 18 141/76 H 97 06/22/21 00:00 103 H 06/21/21 23:40 36.8 C 111 H 18 133/79 98 PG Care Time/CCT Total # of Minutes Spent Total Time Spent with Patient: Total time spent is greater than 50% in coordination of care (as documented) at patient's floor/unit and/or counseling patient: Coding Level of Care Code 52354 Subseq Hosp Care Lvl 2 Diagnoses Bladder mass N32.89 Gross hematuria R31.0 Osseous metastasis C79.51
--- NOTE | 2021-06-22 13:46 | Hospitalist Progress Note ---
Date of Service June 22, 2021 Assessment & Plan (1) Acute blood loss anemia: (2) Bladder mass: Plan: Patient presented from home with reports of lightheadedness, dizziness, shortness of breath, hematuria. Was seen in the ED a few weeks ago for bilateral hip pain. X-ray at that time showed osseous metastatic disease, patient referred for outpatient follow-up. Patient states that he made an appointment at [facility] clinic for 06/23. In the ED, Hgb 6.2 Likely acute blood loss anemia due to hematuria secondary to bladder mass Bladder mass likely malignant based on metastatic findings on imaging Initially hypotensive 88/50, improved after IVF Got 2 PRBC Hb responded appropriately. Hb is 7.9. Repeat this afternoon is 8 Mildly dehydrated and tachycardic. Give some IVF Urologist recommendations appreciated Monitor Hb Continue mclaughlin Patient will need biopsy of mass for histopathological diagnosis once stable to guide treatment once stable Counselled patient extensively on need to quit smoking Reported father had throat cancer from cigarette/cigar/pipe smoking and mother had bone cancer (3) Osseous metastasis: Plan: CT ABD/pelvis shows Large infiltrative mass of the urinary bladder is suggestive of a primary malignancy which demonstrates transmural spread of disease into the right perivesicular tissues and right hemipelvis. There are small adjacent soft tissue nodules compatible with local metastasis. The mass results in obstruction of the distal ureters with moderate to severe bilateral hydroureteronephrosis. There is a delayed right-sided nephrogram. Extensive osseous metastatic disease with questioned anterior epidural disease at L5. No acute pathologic fracture identified. Prominent subcentimeter iliac chain and inguinal lymph nodes are suspicious for lymphatic metastasis. CT chest shows evidence of extensive/diffuse osteoblastic metastatic disease. There are mildly enlarged left supraclavicular, mediastinal, and right hilar lymph nodes. These are suspicious for metastatic disease. There is a tiny cluster of nodules in the left upper lobe measuring up to 4 mm. These are likely on an inflammatory basis. Attention at follow-up is recommended. (4) Lactic acidosis: Plan: Lactic acid 4.8 --> 1.3 Hypovolemia, underlying malignancy likely contributing (5) Thrombocytopenia: Plan: On admission, Platelets 83K Likely due to underlying malignancy Platelet is 56K today. Monitor (6) Cardiomegaly: Plan: Noted on CT chest (7) DVT prophylaxis: Plan: SCDs due to hematuria, anemia Care mgt consult for dc planning/complex needs as patient reports he has no family, lives at his workplace as boss allows him to stay there in exchange for helping out Admission and Anticipated Discharge Date Admission Date: June 21, 2021 Subjective Patient seen and examined. Patient reports dizziness is resolved. Reports weakness Reports chronic dry cough which she ascribes to smoking. Denies any chest pain Denies any shortness of breath Denies fevers, chills, nausea, vomiting, abdominal pain, diarrhea, constipation Reports chronic intermittent hematuria for the past few weeks Physical Exam Constitutional: + well hydrated; no acute distress Eyes: PERRL, conjunctivae normal, anicteric sclerae ENMT: external ear and nose normal, oropharynx normal Respiratory: normal respiratory effort, lungs clear to auscultation Cardiovascular: Rate/Rhythm: regular rhythm and + tachycardic S1 S2 Gastrointestinal (Abdomen): normal bowel sounds, soft, nontender, no hepatosplenomegaly Musculoskeletal: no cyanosis or clubbing, extremities motor strength 5/5 Neurologic: PERRL, EOMI, accommodation nl, no face palsy, no dysarthria Psychiatric: A+Ox3, euthymic affect Genitourinary: Mclaughlin in situ with bloody urine Results & Data Results & Data ([facility] [place]) Vital Signs (Past 12 Hours) Vital Signs Temp Pulse Resp BP Pulse Ox 06/22/21 11:44 37.2 C 116 H 15 142/78 H 93 06/22/21 07:58 37.6 C H 120 H 14 135/69 95 06/22/21 03:26 37.3 C 110 H 20 136/70 94 Laboratory Results Abnormal lab results 06/21/21 06/21/21 06/22/21 Range/Units 13:48 Unknown 02:06 RBC 2.93 L (4.7-6.1) M/uL Hgb 7.9 L (14.0-18.0) g/dL Hct 24.0 L (42-52) % RDW Std Deviation 47.2 H (36.4-46.3) fL RDW Coeff of Marva 16.1 H (11.5-14.5) % Plt Count 56 L (130-400) K/uL Absolute Nucleated RBC 0.23 H (0-0) K/uL Sodium (136-145) mmol/L BUN (6-23) mg/dl BUN/Creatinine Ratio (10-20) Glucose (70-99(Fasting)) mg/dl Calcium (8.5-10.1) mg/dl Urine Protein 3+ H (Negative) Urine Blood 3+ H (Negative) Urine Urobilinogen Positive H (Negative) Urine RBC (Auto) (0-4) /hpf Urine RBC >30 H (0-4) /hpf Urine WBC 5-10 H (0-5) /hpf Crossmatch See Detail 06/22/21 06/22/21 06/22/21 Range/Units 02:06 16:00 Unknown RBC 2.96 L (4.7-6.1) M/uL Hgb 8.0 L (14.0-18.0) g/dL Hct 23.9 L (42-52) % RDW Std Deviation 47.5 H (36.4-46.3) fL RDW Coeff of Marva 16.3 H (11.5-14.5) % Plt Count (130-400) K/uL Absolute Nucleated RBC 0.13 H (0-0) K/uL Sodium 131 L (136-145) mmol/L BUN 33 H (6-23) mg/dl BUN/Creatinine Ratio 33.3 H (10-20) Glucose 109 H (70-99(Fasting)) mg/dl Calcium 8.0 L (8.5-10.1) mg/dl Urine Protein (Negative) Urine Blood 3+ H (Negative) Urine Urobilinogen (Negative) Urine RBC (Auto) >30 H (0-4) /hpf Urine RBC (0-4) /hpf Urine WBC (0-5) /hpf Crossmatch
[2021-06-22 16:06] LABS: Hematocrit (blood only) 23.9 % (42-52); Mean Corpuscular Hgb Conc 33.5 g/dL (32-36); Mean Corpuscular Volume 80.7 fL (80-100); Nucleated RBC # (auto) 0.13 K/uL (0-0); Nucleated RBC % (auto) 1.5 %; RDW Coefficient of Variation 16.3 % (11.5-14.5); RDW Standard Deviation 47.5 fL (36.4-46.3); Red Blood Count 2.96 M/uL (4.7-6.1); White Blood Count 8.44 K/uL (4.8-10.8)
[2021-06-22] MEDS ORDERED: SODIUM CHLORIDE 0.9% 1000ML 500 ML IV ONE (16:08)
[2021-06-22 16:24] LABS: Mean Platelet Volume 8.8 fL (7.4-10.4); Platelet Count 50 K/uL (130-400)
--- NOTE | 2021-06-22 16:28 | Consultation Report ---
DATE OF SERVICE: 06/22/2021. REASON FOR CONSULTATION: Possible metastatic bladder cancer. HISTORY OF PRESENT ILLNESS: Patient is a 61-year-old gentleman who presented to the emergency room on 06/21/2021 with dizziness and hematuria. Of note, patient had initially presented to the ED on 06/02/2021 with complaints of bilateral hip pain for which x-ray was performed, which was suggestive of metastatic disease. He unfortunately did not follow up with Oncology as recommended. He subsequently presented on 06/21/2021 with hematuria and symptoms suggestive of anemia. Labs obtained in the ED revealed hemoglobin of 6.2. He was also found to be hypotensive with blood pressure of 88/50. Patient was subsequently transfused with 3 units of packed red blood cells. CT abdomen and pelvis performed on 06/21/2021 revealed a large infiltrative mass of the urinary bladder suggestive of primary malignancy, small adjacent soft tissue nodules compatible with local metastasis, moderate to severe bilateral hydroureteronephrosis, extensive osseous metastatic disease with questionable anterior epidural disease at L5, prominent subcentimeter iliac chain and inguinal lymph node suspicious for lymphatic metastasis as well as mildly enlarged left supraclavicular, mediastinal and right hilar lymph node, suspicious for metastatic disease. The patient was evaluated by Urology today who have held off on surgical intervention due to worsening thrombocytopenia, hyponatremia. During my evaluation of patient today, he states that he has had hematuria for at least 3 months now. States that hematuria was intermittent. Complains of bilateral shoulder and hip pain. Also, complains of more than 20- pound weight loss over the past 3 months. He denies chest pain, abdominal pain, nausea, vomiting or any other complaints. PAST MEDICAL HISTORY: None. PAST SURGICAL HISTORY: None. MEDICATIONS PRIOR TO ADMISSION: None. ALLERGIES: Denies any known drug allergies. SOCIAL HISTORY: Smokes about 1 pack per day and has been smoking for the past 45 years. Drinks about 15-pack of beer over 2 weeks. Denies illicit drug use. FAMILY HISTORY: Significant for malignancy in his mom of unknown primary. REVIEW OF SYSTEMS: CONSTITUTIONAL: Positive for weight loss. Denies fever or night sweats. CARDIOVASCULAR: Denies chest pain, palpitations. Endorses dizziness. RESPIRATORY: Endorses shortness of breath with exertion. Denies cough. GASTROINTESTINAL: Denies nausea, vomiting, diarrhea, hematemesis or dyspepsia. GENITOURINARY: Endorses hematuria. NEUROLOGIC: Endorses weakness, mostly in the upper extremities. Denies headaches. LYMPHATICS AND HEMATOLOGIC: Denies palpable adenopathy. Endorses hematuria. MUSCULOSKELETAL: Endorses bilateral hip and upper extremity pain. PHYSICAL EXAMINATION: VITAL SIGNS: Blood pressure 142/78, heart rate 116, respiratory rate 15, temperature 37.2, oxygen saturation 93% on room air. EYES: Without conjunctival erythema or icterus. ENT: External exam was negative for masses. NECK: Negative for palpable adenopathy. RESPIRATORY: Lung sounds were generally clear bilaterally. CARDIOVASCULAR: Tachycardic. No significant murmur heard. GASTROINTESTINAL: Abdomen is soft with normal bowel sounds. No palpable hepatosplenomegaly. LYMPHATIC SYSTEM: No palpable peripheral lymphadenopathy. EXTREMITIES: Negative for edema. ASSESSMENT: 1. Bladder mass. 2. Bone metastasis. 3. Thrombocytopenia. 4. Anemia. A 61-year-old gentleman with no significant past medical history who presented with severe anemia, likely due to hematuria. CT imaging was suggestive of bladder malignancy with possible lymph node and bone metastasis. Labs showed severe anemia and thrombocytopenia on admission for which he has required PRBC transfusions. Given the overall picture, suspect the patient has bladder cancer with metastasis. He will, however, need tissue diagnosis to confirm malignancy as well as primary. Agree with PRBC transfusion to maintain hemoglobin greater than 8. I also recommend obtaining coagulation panel including PT/INR, PTT and fibrinogen to rule out DIC as well as checking anemia panel- Although iron studies would probably may be falsely elevated given recent blood transfusion. PLAN: 1. Recommend obtaining urine for cytology. 2. Agree with Urology consultation for cystoscopy with biopsy or could consider CT-guided bone biopsy to establish diagnosis. 3. Recommend checking coagulation panel including PT/INR, PTT and fibrinogen level to rule out DIC. 4. Please check anemia panel including iron studies, vitamin B12 and folate levels. Oncology will continue following the patient while in the hospital. I will plan to see him upon discharge to discuss treatment plan after tissue diagnosis is made. Please feel free to call if you have any further questions. Job ID: [id number] [facility] STATE HOSPITALSergey
--- NOTE | 2021-06-22 21:00 | Electrocardiogram Report ---
Test Reason : Blood Pressure : / mmHG Vent. Rate : 101 BPM Atrial Rate : 101 BPM P-R Int : 136 ms QRS Dur : 086 ms QT Int : 334 ms P-R-T Axes : 072 081 065 degrees QTc Int : 433 ms Poor data quality, interpretation may be adversely affected Sinus tachycardia Otherwise normal ECG No previous ECGs available Confirmed by Haresh Curran ([id number]) on 06/22/2021 9:00:02 PM Referred By: REFERRED SELF Confirmed By:Haresh Curran
[2021-06-23 07:06] LABS: Hematocrit (blood only) 23.8 % (42-52); Hemoglobin 7.8 g/dL (14.0-18.0); Mean Corpuscular Hemoglobin 26.8 pg (25-34); Mean Corpuscular Hgb Conc 32.8 g/dL (32-36); Mean Corpuscular Volume 81.8 fL (80-100); Nucleated RBC % (auto) 1.3 %; RDW Coefficient of Variation 16.4 % (11.5-14.5); RDW Standard Deviation 49.1 fL (36.4-46.3); Red Blood Count 2.91 M/uL (4.7-6.1)
[2021-06-23 07:10] LABS: INR 1.1 (0.9-1.1); Prothrombin Time 11.9 Seconds (9.0-12.0)
[2021-06-23] MEDS: ACETAMINOPHEN 325 MG TAB PO PRN (07:18)
[2021-06-23 07:25] LABS: Platelet Count 52 K/uL (130-400)
[2021-06-23 07:34] LABS: Calcium 7.9 mg/dl (8.5-10.1); Est GFR (African American) 114.8 ml/min; Potassium 3.8 mmol/L (3.5-5.1)
[2021-06-23 08:24] LABS: Reticulocyte % 0.7 % (0.5-2.0); Reticulocytes # 0.02 10^6/uL (0.02-0.10)
[2021-06-23 08:54] LABS: Fibrinogen > 860 mg/dl (184-400); Partial Thromboplastin Ratio 1.1; Partial Thromboplastin Time 31.3 Seconds (21.0-31.0)
[2021-06-23 09:42] LABS: Folate (Folic Acid) 6.83 ng/ml (>5.38)
--- NOTE | 2021-06-23 10:42 | Urology Progress Note ---
Date of Service June 23, 2021 Assessment & Plan (1) Gross hematuria: (2) Bladder mass: (3) Osseous metastasis: Plan: 61 yo M admitted for hematuria and symptomatic anemia; CT imaging suggestive of bladder malignancy with possible lymph node and bone metastasis. - Case reviewed with Dr. Haque. - Afebrile, nontoxic, VS - tachycardic, normotensive. - Lab work reviewed - creatinine 0.75, WBC 7.70, Hgb 7.8/Hct 23.8, Plt 52, INR 1.1, Na 131. - He has received 2 units PRBCs during admission. - Blood cultures showing no growth x 24 hours. - Velasquez catheter intact, patent and draining appropriately, urine remains lobo red. - Maintain Velasquez catheter - okay to hand irrigate as needed for clot retention, suprapubic pain. - Will need to obtain a tissue sample for diagnosis as previously discussed. - Ideally he can be medically optimized prior to operative intervention.Remains hyponatremic and thrombocytopenic. - Discussed with hospital medicine - plan to transfuse platelets on day of surgery. - Proceed with cystoscopy and transurethral resection of bladder tumor tomorrow presuming he remains medically stable. - Procedure will likely be only to obtain tissue for diagnosis, rather than perform a complete resection. - Make NPO at midnight. - Continue supportive care and management per hospital medicine service. - Will continue to follow. Admission and Anticipated Discharge Date Admission Date: June 21, 2021 Subjective Patient seen and examined at bedside this AM. He is awake, alert and sitting up in bed. No acute issues overnight. Denies abdominal, flank or suprapubic pain. Notes some low back pain. Tolerating Velasquez catheter - catheter intact, patent and draining lobo red urine, no clots noted in tubing. Per nursing notes, manual irrigation performed once overnight due to small clots noted. No nausea or vomiting. No fever or chills. No chest pain, dizziness, or shortness of breath. Review of Systems Constitutional: as per Subjective / HPI Eyes: no problem reported Respiratory: no dyspnea Cardiovascular: no chest pain Gastrointestinal: as per Subjective / HPI Genitourinary: + as per Subjective / HPI Musculoskeletal: as per Subjective / HPI Integumentary: no problem reported Neurologic: no problem reported Psychiatric: no problem reported Physical Exam Constitutional: comfortable; no acute distress and not ill appearing Eyes: no scleral abnormality Neck: normal visual inspection Respiratory: normal respiratory effort and able to speak in complete sentences; no respiratory distress and no labored breathing Cardiovascular: Extremities: no pedal edema Gastrointestinal (Abdomen): Inspection/Auscultation: abdomen normal to inspection; abdomen not distended Percussion/Palpation: abdomen soft; abdomen nontender and no guarding Musculoskeletal: Head/Neck/Chest: normocephalic Skin: no visible rashes Neurologic: moves all extremities and awake Psychiatric: Orientation: alert and oriented x 3 Genitourinary: Velasquez intact, patent and draining lobo red urine, no clots noted in tubing Results & Data ([facility]) Vital Signs (Past 12 Hours) Vital Signs Temp Pulse Pulse Resp BP BP Pulse Ox 06/23/21 08:24 103 H 06/23/21 07:13 37 C 118 H 18 121/70 94 06/23/21 04:50 36.7 C 113 H 24 130/67 94 06/23/21 00:08 37.4 C 126 H 18 143/72 H 95 PG Care Time/CCT Total # of Minutes Spent Total Time Spent with Patient: Total time spent is greater than 50% in coordination of care (as documented) at patient's floor/unit and/or counseling patient: Coding Level of Care Code 90585 Subseq Hosp Care Lvl 2 Diagnoses Gross hematuria R31.0 Bladder mass N32.89 Osseous metastasis C79.51
[2021-06-23] MEDS ORDERED: SODIUM CHLORIDE 0.9% 250 ML IV PRN ×2 (11:50→12:19)
--- NOTE | 2021-06-23 12:04 | Hospitalist Progress Note ---
Date of Service June 23, 2021 Assessment & Plan (1) Acute blood loss anemia: (2) Bladder mass: Plan: Patient presented from home with reports of lightheadedness, dizziness, shortness of breath, hematuria. Was seen in the ED a few weeks ago for bilateral hip pain. X-ray at that time showed osseous metastatic disease, patient referred for outpatient follow-up. Patient states that he made an appointment at [facility] clinic for 06/23. Reported father had throat cancer from cigarette/cigar/pipe smoking and mother had bone cancer In the ED, Hgb 6.2 Likely acute blood loss anemia due to hematuria secondary to bladder mass Bladder mass likely malignant based on metastatic findings on imaging Initially hypotensive 88/50, improved after IVF Got 3 PRBC Hb is 7.8 Will transfuse 1 pRBC to keep Hb>8 Discussed with Urology. Plan for cystoscopy with biopsy tomorrow. Will plan to give platelet tomorrow morning since patient has thrombocytopenia with active hematuria Appreciate Oncologist recommendations Labs ordered per Oncology. Based on available results, low likelihood of DIC Will follow up with Onco once biopsy and pathology result is out (3) Osseous metastasis: Plan: CT ABD/pelvis shows Large infiltrative mass of the urinary bladder is suggestive of a primary malignancy which demonstrates transmural spread of disease into the right perivesicular tissues and right hemipelvis. There are small adjacent soft tissue nodules compatible with local metastasis. The mass results in obstruction of the distal ureters with moderate to severe bilateral hydroureteronephrosis. There is a delayed right-sided nephrogram. Extensive osseous metastatic disease with questioned anterior epidural disease at L5. No acute pathologic fracture identified. Prominent subcentimeter iliac chain and inguinal lymph nodes are suspicious for lymphatic metastasis. CT chest shows evidence of extensive/diffuse osteoblastic metastatic disease. There are mildly enlarged left supraclavicular, mediastinal, and right hilar lymph nodes. These are suspicious for metastatic disease. There is a tiny cluster of nodules in the left upper lobe measuring up to 4 mm. These are likely on an inflammatory basis. Attention at follow-up is recommended. Pain control Started tramadol prn in addition to tylenol (4) Lactic acidosis: Plan: Lactic acid 4.8 --> 1.3 Hypovolemia, underlying malignancy likely contributing (5) Thrombocytopenia: Plan: On admission, Platelets 83K Likely due to underlying malignancy Platelet is 52K today. Monitor Will give platelete tomorrow before procedure (6) Cardiomegaly: Plan: Noted on CT chest Echo report reviewed.No obvious pathology (7) DVT prophylaxis: Plan: SCDs due to hematuria, anemia Care mgt on board for dc planning/complex needs as patient reports he has no family, lives at his workplace as boss allows him to stay there in exchange for helping out Admission and Anticipated Discharge Date Admission Date: June 21, 2021 Subjective Patient seen and examined. Reports weakness and pain in back Denied dizziness or headache Reports chronic dry cough Denies any chest pain Denies any shortness of breath Denies fevers, chills, nausea, vomiting, abdominal pain, diarrhea, constipation Still having hematuria Physical Exam Constitutional: + well hydrated; no acute distress Eyes: PERRL, conjunctivae normal, anicteric sclerae ENMT: external ear and nose normal, oropharynx normal Respiratory: normal respiratory effort, lungs clear to auscultation Cardiovascular: Rate/Rhythm: regular rhythm and + tachycardic S1 S2 Gastrointestinal (Abdomen): normal bowel sounds, soft, nontender, no hepatosplenomegaly Musculoskeletal: no cyanosis or clubbing, extremities motor strength 5/5 Neurologic: PERRL, EOMI, accommodation nl, no face palsy, no dysarthria Psychiatric: A+Ox3, euthymic affect Genitourinary: Velasquez in situ with bloody urine Results & Data Results & Data ([facility]) Vital Signs (Past 12 Hours) Vital Signs Temp Pulse Pulse Resp BP BP Pulse Ox 06/23/21 11:26 36.8 C 113 H 28 H 105/65 94 06/23/21 08:24 103 H 06/23/21 07:13 37 C 118 H 18 121/70 94 06/23/21 04:50 36.7 C 113 H 24 130/67 94 06/23/21 00:08 37.4 C 126 H 18 143/72 H 95 Laboratory Results Abnormal lab results 06/21/21 06/22/21 06/22/21 Range/Units 13:48 16:00 16:30 RBC 2.96 L (4.7-6.1) M/uL Hgb 8.0 L (14.0-18.0) g/dL Hct 23.9 L (42-52) % RDW Std Deviation 47.5 H (36.4-46.3) fL RDW Coeff of Marva 16.3 H (11.5-14.5) % Plt Count 50 L (130-400) K/uL Absolute Nucleated RBC 0.13 H (0-0) K/uL APTT (21.0-31.0) Seconds Fibrinogen (184-400) mg/dl Sodium (136-145) mmol/L BUN (6-23) mg/dl BUN/Creatinine Ratio (10-20) Glucose (70-99(Fasting)) mg/dl POC Glucose 155 H (70-99) mg/dl Calcium (8.5-10.1) mg/dl Transferrin (200-360) mg/dl Ferritin (8-388) ng/ml Lactate Dehydrogenase (86-244) U/L Crossmatch See Detail 06/23/21 06/23/21 06/23/21 Range/Units 06:44 06:44 06:44 RBC 2.91 L (4.7-6.1) M/uL Hgb 7.8 L (14.0-18.0) g/dL Hct 23.8 L (42-52) % RDW Std Deviation 49.1 H (36.4-46.3) fL RDW Coeff of Marva 16.4 H (11.5-14.5) % Plt Count 52 L (130-400) K/uL Absolute Nucleated RBC 0.10 H (0-0) K/uL APTT 31.3 H (21.0-31.0) Seconds Fibrinogen > 860 H (184-400) mg/dl Sodium 131 L (136-145) mmol/L BUN 27 H (6-23) mg/dl BUN/Creatinine Ratio 36.0 H (10-20) Glucose 107 H (70-99(Fasting)) mg/dl POC Glucose (70-99) mg/dl Calcium 7.9 L (8.5-10.1) mg/dl Transferrin (200-360) mg/dl Ferritin (8-388) ng/ml Lactate Dehydrogenase (86-244) U/L Crossmatch 06/23/21 06/23/21 Range/Units 08:34 08:34 RBC (4.7-6.1) M/uL Hgb (14.0-18.0) g/dL Hct (42-52) % RDW Std Deviation (36.4-46.3) fL RDW Coeff of Marva (11.5-14.5) % Plt Count (130-400) K/uL Absolute Nucleated RBC (0-0) K/uL APTT (21.0-31.0) Seconds Fibrinogen (184-400) mg/dl Sodium (136-145) mmol/L BUN (6-23) mg/dl BUN/Creatinine Ratio (10-20) Glucose (70-99(Fasting)) mg/dl POC Glucose (70-99) mg/dl Calcium (8.5-10.1) mg/dl Transferrin 132 L (200-360) mg/dl Ferritin 2035.0 H (8-388) ng/ml Lactate Dehydrogenase 352 H (86-244) U/L Crossmatch
[2021-06-23] MEDS: LIDOCAINE 5% 1 PATCH TD SCH (12:34)
[2021-06-23 15:29] LABS: Hematocrit (blood only) 24.6 % (42-52); Hemoglobin 8.3 g/dL (14.0-18.0); Mean Corpuscular Hemoglobin 27.9 pg (25-34); Mean Corpuscular Hgb Conc 33.7 g/dL (32-36); Mean Corpuscular Volume 82.6 fL (80-100); Nucleated RBC # (auto) 0.13 K/uL (0-0); Nucleated RBC % (auto) 1.7 %; RDW Coefficient of Variation 16.4 % (11.5-14.5); RDW Standard Deviation 48.6 fL (36.4-46.3); Red Blood Count 2.98 M/uL (4.7-6.1); White Blood Count 7.72 K/uL (4.8-10.8)
[2021-06-23 15:34] LABS: Mean Platelet Volume 9.2 fL (7.4-10.4); Platelet Count 48 K/uL (130-400)
[2021-06-23 15:57] LABS: D Dimer 10110 ug/L FEU (0-500)
[2021-06-23 16:04] LABS: Platelet Estimate Decreased (Normal)
[2021-06-24] MEDS: LIDOCAINE 5% 1 PATCH TD SCH (07:11)
[2021-06-24] MEDS: traMADol HCL 50 MG TABLET PO PRN ×3 (07:13→21:15)
[2021-06-24 07:58] LABS: Hematocrit (blood only) 25.1 % (42-52); Hemoglobin 8.2 g/dL (14.0-18.0); Mean Corpuscular Hgb Conc 32.7 g/dL (32-36); Mean Corpuscular Volume 82.6 fL (80-100); Nucleated RBC # (auto) 0.09 K/uL (0-0); Nucleated RBC % (auto) 1.3 %; RDW Coefficient of Variation 16.2 % (11.5-14.5); RDW Standard Deviation 48.5 fL (36.4-46.3); Red Blood Count 3.04 M/uL (4.7-6.1); White Blood Count 6.81 K/uL (4.8-10.8)
[2021-06-24 08:18] LABS: INR 1.1 (0.9-1.1); Prothrombin Time 11.6 Seconds (9.0-12.0)
[2021-06-24 08:24] LABS: Mean Platelet Volume 9.6 fL (7.4-10.4); Platelet Count 49 K/uL (130-400)
[2021-06-24 08:29] LABS: BUN Creatinine Ratio 41.5 (10-20); Calcium 7.9 mg/dl (8.5-10.1); Creatinine Clr Calc Pharmacy 108.5 ml/min; Est GFR (African American) 121.7 ml/min; Potassium 3.8 mmol/L (3.5-5.1)
--- NOTE | 2021-06-24 08:34 | Anesthesiology Consultation ---
Date of Service June 24, 2021 Assessment & Plan (1) Encounter for pre-operative examination: Chart Review Chart Review: pharmacy order entry technician initiated History Surgery Operation Date: 06/24/21 11:30 Proposed Procedures p Cystoscopy, Transurethral Resection Bladder Tumor - Sav Haque MD Height/Weight Height: 5 ft 8 in Weight: 64.3 kg Allergies Allergy/AdvReac Type Severity Reaction Status Date / Time No Known Allergies Allergy Unverified 06/21/21 15:06 Medications Home Medications Medication Instructions Recorded Confirmed Last Taken No Known Home Medications 06/21/21 06/21/21 Unknown Active Medications Generic Name Dose Route Start Last Admin Trade Name Freq PRN Reason Stop Dose Admin Acetaminophen 650 mg 06/21/21 21:19 06/23/21 07:18 Acetaminophen 325 Mg Tab PO 07/21/21 21:18 650 mg Q4H PRN Administration Pain or Fever Lidocaine 1 patch 06/23/21 12:00 06/24/21 07:11 Lidocaine 5% 1 Patch TD 07/23/21 11:59 1 patch QAM TONG Administration Miscellaneous 1 ea 06/23/21 21:00 06/23/21 21:21 Remove Lidoderm Patch N/A 07/23/21 20:59 1 ea DAILY@2100 TONG Administration Tramadol HCl 50 mg 06/23/21 11:50 06/24/21 07:13 Tramadol Hcl 50 Mg Tablet PO 07/23/21 11:49 50 mg Q4H PRN Administration Severe Pain Past Medical History Medical History No pertinent past medical history Past Family History Family History Mother Bone cancer Father Throat cancer Past Surgical History Surgical History No pertinent past surgical history Social History Smoking Status: Current every day smoker tobacco type: cigarettes Smoking cigarettes per day: 20 Hx Alcohol Use: Yes Alcohol type: beer alcohol intake frequency: a few times a week Alcohol Intake Frequency Comment: "15 pack will last me two weeks" Hx Substance Use: No Physical Exam Vital Signs Last Vital Signs Temp 98.8 F 06/24/21 08:22 Pulse 116 H 06/24/21 08:22 Resp 28 H 06/24/21 08:22 BP 120/71 06/24/21 08:22 Pulse Ox 91 06/24/21 07:10 Testing Laboratory Results 06/24/21 07:04 06/24/21 07:04 PT 11.6 Seconds (9.0-12.0) 06/24/21 07:04 INR 1.1 (0.9-1.1) 06/24/21 07:04 APTT 31.3 Seconds (21.0-31.0) H 06/23/21 06:44 Urine Color Red 06/21/21 Unknown Urine Appearance Clear (Clear) 06/21/21 Unknown Urine pH 5.5 (4.5-7.5) 06/21/21 Unknown Ur Specific [place] 1.020 (1.000-1.030) 06/21/21 Unknown Urine Protein 3+ (Negative) H 06/21/21 Unknown Urine Glucose (UA) Negative (Negative) 06/21/21 Unknown Urine Ketones Negative (Negative) 06/21/21 Unknown Urine Nitrite Negative (Negative) 06/21/21 Unknown Ur Leukocyte Esterase Negative (Negative) 06/21/21 Unknown Urine RBC (Auto) >30 /hpf (0-4) H 06/22/21 Unknown Urine RBC >30 /hpf (0-4) H 06/21/21 Unknown Urine WBC 5-10 /hpf (0-5) H 06/21/21 Unknown Ur Epithelial Cells 0-5 /lpf (0-5) 06/21/21 Unknown Blood Type A Negative 06/21/21 13:48 Antibody Screen NEGATIVE 06/21/21 13:48 06/21/21 14:04 Aerobic Blood Culture - Preliminary Blood No growth in Aerobic bottle after 48 hours. Anaerobic Blood Culture - Final 06/21/21 13:58 Aerobic Blood Culture - Preliminary Blood No growth in Aerobic bottle after 48 hours. Anaerobic Blood Culture - Preliminary No growth in Anaerobic bottle after 48 hours. Electrocardiogram Date: 06/21/21 Sinus tachycardia, rate 101 bpm Otherwise normal ECG No previous ECGs available Confirmed by Haresh Curran ([id number]) on 06/22/2021 9:00:02 PM Chest X-Ray Date: 06/21/21 IMPRESSION: 1. Skeletal heterogeneity and sclerosis. This is suspicious for metastatic disease such as prostate carcinoma. 2. Equivocal left midlung opacity. This is likely artifactual or related to rib lesions however airspace disease could appear similar. This can be assessed on follow-up radiographs. Echocardiogram Date: 06/23/21 No significant valvular pathology LV is normal in size LV systolic function is normal EF 60-65% RVSP is normal LA size is normal RA size is normal
--- NOTE | 2021-06-24 09:04 | Urology Progress Note ---
Date of Service June 24, 2021 Assessment & Plan (1) Gross hematuria: (2) Bladder mass: (3) Osseous metastasis: Plan: 61 yo M admitted for hematuria and symptomatic anemia; CT imaging suggestive of bladder malignancy with possible lymph node and bone metastasis. - Case reviewed with Dr. Haque. - Afebrile, nontoxic, VS - tachycardic, normotensive. - Lab work reviewed - creatinine 0.65, WBC 6.81, Hgb 8.2, Plt 49, INR 1.1, Na 131. - He received 1 unit of PRBCs yesterday; Platelets currently infusing. - Blood cultures showing no growth x 48 hours. - Velasquez catheter intact, patent and draining appropriately, urine remains lobo red. - Maintain Velasquez catheter - okay to hand irrigate as needed for clot retention, suprapubic pain. - Keep NPO for procedure. - Proceed with cystoscopy and transurethral resection of bladder tumor today presuming he remains medically stable. - Procedure will likely be only to obtain tissue for diagnosis, rather than perform a complete resection. - Risks and benefits to be reviewed with patient by Dr. Haque. OR notified. EKG and CXR on chart. - Will treat with IV Ciprofloxacin preoperatively. - Patient agreeable with above plan, all questions answered. - Continue supportive care and management per hospital medicine service. - Will continue to follow. Admission and Anticipated Discharge Date Admission Date: June 21, 2021 Subjective Patient seen and examined at bedside this AM. Asleep on arrival, arouses easily to his name. Nursing performed manual irrigation x 2 on retail shift leader due to leaking around catheter and then not draining into bag. Per nursing notes, small clots returned with first flush; larger clot returned with second irrigation. Velasquez currently intact, patent and draining lobo red urine, a few small clots noted in tubing. Denies flank, abdominal or suprapubic pain. Reports hip and shoulder pain have improved with Lidocaine patch and prn pain medication. No nausea or vomiting. No fever or chills. No chest pain or shortness of breath. Platelets are currently being administered. He is NPO at present. Review of Systems Constitutional: as per Subjective / HPI Respiratory: no dyspnea Cardiovascular: no chest pain Gastrointestinal: as per Subjective / HPI Genitourinary: + as per Subjective / HPI Musculoskeletal: as per Subjective / HPI Integumentary: no problem reported Neurologic: no problem reported Psychiatric: no problem reported Physical Exam Constitutional: comfortable; no acute distress and not ill appearing Eyes: no scleral abnormality Neck: normal visual inspection Respiratory: normal respiratory effort and able to speak in complete sentences; no respiratory distress and no labored breathing Cardiovascular: Extremities: no pedal edema Gastrointestinal (Abdomen): Inspection/Auscultation: abdomen normal to inspection; abdomen not distended Percussion/Palpation: abdomen soft; abdomen nontender and no guarding Musculoskeletal: Head/Neck/Chest: normocephalic Skin: no visible rashes Neurologic: moves all extremities and awake Psychiatric: Orientation: alert and oriented x 3 Genitourinary: Velasquez intact, patent and draining lobo red urine, few small clots noted in tubing Results & Data ([facility]) Vital Signs (Past 12 Hours) Vital Signs Temp Pulse Pulse Resp BP BP BP 06/24/21 08:55 36.8 C 111 H 30 H 123/73 06/24/21 08:41 37.1 C 123 H 28 H 129/72 06/24/21 08:22 37.1 C 116 H 28 H 120/71 06/24/21 07:10 37.4 C 116 H 31 H 107/70 06/24/21 02:50 37.5 C 112 H 26 H 126/72 06/23/21 23:47 127 H 06/23/21 22:39 37.4 C 128 H 28 H 121/69 Pulse Ox 06/24/21 08:55 92 06/24/21 08:41 94 06/24/21 08:22 06/24/21 07:10 91 06/24/21 02:50 93 06/23/21 23:47 06/23/21 22:39 93 PG Care Time/CCT Total # of Minutes Spent Total Time Spent with Patient: Total time spent is greater than 50% in coordination of care (as documented) at patient's floor/unit and/or counseling patient: Coding Level of Care Code 50115 Subseq Hosp Care Lvl 2 Diagnoses Gross hematuria R31.0 Bladder mass N32.89 Osseous metastasis C79.51
--- NOTE | 2021-06-24 10:20 | Hospitalist Progress Note ---
Date of Service June 24, 2021 Assessment & Plan (1) Acute blood loss anemia: (2) Bladder mass: Plan: Patient presented from home with reports of lightheadedness, dizziness, shortness of breath, hematuria. Was seen in the ED a few weeks ago for bilateral hip pain. X-ray at that time showed osseous metastatic disease, patient referred for outpatient follow-up. Patient states that he made an appointment at [facility] clinic for 06/23. Reported father had throat cancer from cigarette/cigar/pipe smoking and mother had bone cancer In the ED, Hgb 6.2 Likely acute blood loss anemia due to hematuria secondary to bladder mass Bladder mass likely malignant based on metastatic findings on imaging Initially hypotensive 88/50, improved after IVF Got 4 PRBC so far since admission Hb is 8.2 Monitor and transfuse prn to keep Hb>8 Urology going to take patient for cystoscopy and biopsy this morning Platelet being given in view of active bleeding and thrombocytopenia Will follow up with Onco once biopsy and pathology result is out (3) Osseous metastasis: Plan: CT ABD/pelvis shows Large infiltrative mass of the urinary bladder is suggestive of a primary malignancy which demonstrates transmural spread of disease into the right perivesicular tissues and right hemipelvis. There are small adjacent soft tissue nodules compatible with local metastasis. The mass results in obstruction of the distal ureters with moderate to severe bilateral hydroureteronephrosis. There is a delayed right-sided nephrogram. Extensive osseous metastatic disease with questioned anterior epidural disease at L5. No acute pathologic fracture identified. Prominent subcentimeter iliac chain and inguinal lymph nodes are suspicious for lymphatic metastasis. CT chest shows evidence of extensive/diffuse osteoblastic metastatic disease. There are mildly enlarged left supraclavicular, mediastinal, and right hilar lymph nodes. These are suspicious for metastatic disease. There is a tiny cluster of nodules in the left upper lobe measuring up to 4 mm. These are likely on an inflammatory basis. Attention at follow-up is recommended. Pain control (4) Lactic acidosis: Plan: Lactic acid 4.8 --> 1.3 Hypovolemia, underlying malignancy likely contributing (5) Thrombocytopenia: Plan: On admission, Platelets 83K Likely due to underlying malignancy Platelet was 52K yesterday. Monitor Platelet being given in view of active bleeding and thrombocytopenia (6) Cardiomegaly: Plan: Noted on CT chest Echo report reviewed.No obvious pathology (7) DVT prophylaxis: Plan: SCDs due to hematuria, anemia Care mgt on board for dc planning/complex needs as patient reports he has no family, lives at his workplace as boss allows him to stay there in exchange for helping out Admission and Anticipated Discharge Date Admission Date: June 21, 2021 Subjective Patient seen and examined. Reports weakness Reported pain in back is better controlled with tramadol and lidocaine patch Denied dizziness or headache Has chronic dry cough Denies any chest pain Denies any shortness of breath Denies fevers, chills, nausea, vomiting, abdominal pain, diarrhea, constipation Still having hematuria Physical Exam Constitutional: + well hydrated; no acute distress Eyes: PERRL, conjunctivae normal, anicteric sclerae ENMT: external ear and nose normal, oropharynx normal Respiratory: normal respiratory effort, lungs clear to auscultation Cardiovascular: Rate/Rhythm: regular rhythm and + tachycardic S1 S2 Gastrointestinal (Abdomen): normal bowel sounds, soft, nontender, no hepatosplenomegaly Musculoskeletal: no cyanosis or clubbing, extremities motor strength 5/5 Neurologic: PERRL, EOMI, accommodation nl, no face palsy, no dysarthria Psychiatric: A+Ox3, euthymic affect Genitourinary: Velasquez in situ with bloody urine Results & Data Results & Data ([facility]) Vital Signs (Past 12 Hours) Vital Signs Temp Pulse Pulse Resp BP BP BP 06/24/21 09:26 37 C 113 H 30 H 124/69 06/24/21 08:55 36.8 C 111 H 30 H 123/73 06/24/21 08:41 37.1 C 123 H 28 H 129/72 06/24/21 08:22 37.1 C 116 H 28 H 120/71 06/24/21 08:12 118 H 06/24/21 07:10 37.4 C 116 H 31 H 107/70 06/24/21 02:50 37.5 C 112 H 26 H 126/72 06/23/21 23:47 127 H 06/23/21 22:39 37.4 C 128 H 28 H 121/69 Pulse Ox 06/24/21 09:26 92 06/24/21 08:55 92 06/24/21 08:41 94 06/24/21 08:22 06/24/21 08:12 06/24/21 07:10 91 03/18/22 02:50 93 06/23/21 23:47 06/23/21 22:39 93 Laboratory Results Abnormal lab results 06/21/21 06/23/21 06/23/21 Range/Units 13:48 08:34 15:23 RBC 2.98 L (4.7-6.1) M/uL Hgb 8.3 L (14.0-18.0) g/dL Hct 24.6 L (42-52) % RDW Std Deviation 48.6 H (36.4-46.3) fL RDW Coeff of Marva 16.4 H (11.5-14.5) % Plt Count 48 L (130-400) K/uL Absolute Nucleated RBC 0.13 H (0-0) K/uL Platelet Estimate Decreased L (Normal) D-Dimer (0-500) ug/L FEU Sodium (136-145) mmol/L BUN (6-23) mg/dl BUN/Creatinine Ratio (10-20) Glucose (70-99(Fasting)) mg/dl Calcium (8.5-10.1) mg/dl Ferritin 2035.0 H (8-388) ng/ml Crossmatch See Detail 06/23/21 06/24/21 06/24/21 Range/Units 15:23 07:04 07:04 RBC 3.04 L (4.7-6.1) M/uL Hgb 8.2 L (14.0-18.0) g/dL Hct 25.1 L (42-52) % RDW Std Deviation 48.5 H (36.4-46.3) fL RDW Coeff of Marva 16.2 H (11.5-14.5) % Plt Count 49 L (130-400) K/uL Absolute Nucleated RBC 0.09 H (0-0) K/uL Platelet Estimate (Normal) D-Dimer [id number] H* (0-500) ug/L FEU Sodium 131 L (136-145) mmol/L BUN 27 H (6-23) mg/dl BUN/Creatinine Ratio 41.5 H (10-20) Glucose 106 H (70-99(Fasting)) mg/dl Calcium 7.9 L (8.5-10.1) mg/dl Ferritin (8-388) ng/ml Crossmatch
[2021-06-24] MEDS ORDERED: fentaNYL citrate 100 MCG/2 ML VIAL IV PRN (11:09)
[2021-06-24] MEDS ORDERED: ePHEDrine sulfate 50 MG/ML AMP IV PRN (11:09)
[2021-06-24] MEDS ORDERED: ATROPINE SULFATE 0.1 MG/ML 10ML SYR IV PRN (11:09)
[2021-06-24] MEDS ORDERED: ONDANSETRON INJ 2 MG/ML 2 ML VIAL IV PRN (11:09)
[2021-06-24] MEDS ORDERED: ONDANSETRON INJ 2 MG/ML 2 ML VIAL ONE (11:24)
[2021-06-24] MEDS ORDERED: MIDAZOLAM HCL 1 MG/ML 2ML VIAL ONE (11:24)
[2021-06-24] MEDS ORDERED: LIDOCAINE 2% 2 ML VIAL/AMP(20MG/ML) INFIL ONE (11:24)
[2021-06-24] MEDS ORDERED: fentaNYL citrate 100 MCG/2 ML VIAL ONE (11:24)
[2021-06-24] MEDS ORDERED: PROPOFOL IV EMULSION 10 MG/ML 20 ML VIAL IV ONE (11:24)
[2021-06-24] MEDS: CIPROFLOXACIN / D5W 400 MG/200 ML BAG IV SCH (12:02)
--- NOTE | 2021-06-24 12:52 | Operative Report ---
PG Post Operative Report Pre & Post Diagnosis Operation Date: 06/24/21 11:30 Pre-Op Diagnosis: Bladder tumor Post-Op Diagnosis: Bladder tumor I identified the patient and participated in the time-out.: Yes Procedure Operation Date: 06/24/21 11:30 Actual Procedures p Cystoscopy, Transurethral Resection Bladder Tumor(Not Applicable) - Sav Haque MD Surgeon Mickey Haque MD Zoology Technical Officer none Estimated Blood Loss 0 Findings Consistent with Post-Op Diagnosis Specimens Bladder tumor Description of Procedure The patient was identified in the preoperative holding area, appropriate informed consents were reviewed and completed and the patient was transferred to the operative suite. Upon arrival, appropriate antibiotics and anesthesia were administered and the patient was placed in dorsal lithotomy position and prepped and draped in sterile fashion. To begin the case I attempted to pass a 26 Belgian resectoscope with 30 degree lens and visual obturator, however his meatus would not accommodate the scope. I mba intern dilated the meatus utilizing male urethral sounds. I then passed the scope without incident. Inspection of the urethra was unremarkable as was the prostate. Entry into the bladder revealed a grossly abnormal structure. There was a significant mount of clot which I attempted to irrigate out of the bladder. The remainder of the bladder wall was substantially abnormal in appearance. There were protuberant areas which were difficult to discern whether this was true bladder wall or mature clot that had leaked some of its color. I utilized a loop electrode to resect some of these protuberant areas first. After flattening the slightly I turned my attention to some of the more abnormal areas that were moved closer to the bladder wall. I resected several areas of the bladder wall in an effort to obtain tissue and determine a true diagnosis. Of note, he was oozing from numerous sites around the bladder upon entry. I cautiously work my way around the bladder and try to cauterize all the active bleeding sites. Given the gross abnormalities of the bladder and his low platelet count I fully anticipate he will continue to ooze indefinitely. After collecting the specimens and confirming the bleeding had been stopped to the best of our ability I concluded the case. I did place a 22 Belgian Velasquez catheter. Of note, his bimanual exam reveals entirely fixed bladder as would be expected based on preoperative imaging. I attest to the content of the Intraoperative Record and any orders documented therein. Any exceptions are noted below.
[2021-06-24] MEDS ORDERED: FLUMAZENIL 0.1 MG/1 ML 10 ML VIAL IV ONE (13:11)
--- NOTE | 2021-06-24 13:48 | Anesthesiology Progress Note ---
Date of Service June 24, 2021 Anesthesia Post Procedure Vital Signs Vital Signs: Temp Pulse Pulse Pulse Resp BP BP 06/24/21 13:35 131 H 20 119/73 06/24/21 13:25 135 H 22 129/79 06/24/21 13:15 139 H 18 130/70 06/24/21 13:05 123 H 18 216/106 H 06/24/21 12:56 98.6 F 116 H 18 119/73 06/24/21 10:54 99.0 F 120 H 120 H 24 06/24/21 09:26 98.6 F 113 H 30 H 124/69 06/24/21 08:55 98.2 F 111 H 30 H 123/73 06/24/21 08:41 98.8 F 123 H 28 H 129/72 06/24/21 08:22 98.8 F 116 H 28 H 120/71 06/24/21 08:12 118 H 06/24/21 07:10 99.3 F 116 H 31 H 06/24/21 02:50 99.5 F 112 H 26 H 126/72 06/23/21 23:47 127 H 06/23/21 22:39 99.3 F 128 H 28 H 121/69 06/23/21 20:04 99.1 F 116 H 28 H 120/71 06/23/21 16:30 118 H 06/23/21 16:21 97.9 F 110 H 16 06/23/21 15:01 98.8 F 116 H 28 H 111/70 06/23/21 13:55 98.8 F 115 H 23 111/68 BP Pulse Ox 06/24/21 13:35 97 06/24/21 13:25 98 06/24/21 13:15 96 06/24/21 13:05 75 L 06/24/21 12:56 94 06/24/21 10:54 126/80 95 06/24/21 09:26 92 06/24/21 08:55 92 06/24/21 08:41 94 06/24/21 08:22 06/24/21 08:12 06/24/21 07:10 107/70 91 06/24/21 02:50 93 06/23/21 23:47 06/23/21 22:39 93 06/23/21 20:04 95 06/23/21 16:30 06/23/21 16:21 121/63 96 06/23/21 15:01 95 06/23/21 13:55 95 Pain Intensity Bilateral Shoulder: Pain Intensity: 7 Transfer of Care Handoff Completed per policy Notes Mental Status: alert / awake / arousable and participated in evaluation Patient Amnestic to Procedure: Yes Nausea / Vomiting: adequately controlled Pain: adequately controlled Airway Patency, RR, SpO2: stable & adequate BP & HR: stable & adequate Hydration State: stable & adequate Anesthetic Complications: no major complications apparent and Pt Satisfied with anesthetic care Notes: Patient had a period of unresponsiveness in PACU. The patient's ventilation had to be assisted by facemask. The patient was administered flumazenil 0.1mg IV. The patient was responsive shortly after administration. The patient was tachycardic but he was tachycardic preoperatively. The patient was stable to be discharged to his monitored bed.
[2021-06-24 14:46] LABS: Nucleated RBC # (auto) 0.08 K/uL (0-0); Nucleated RBC % (auto) 1.1 %
[2021-06-24 15:07] LABS: Basophils # (auto) 0.01 K/uL (0-0.2); Basophils % (auto) 0.1 %; Eosinophils # (auto) 0.01 K/uL (0-0.5); Eosinophils % (auto) 0.1 %; Hematocrit (blood only) 25.2 % (42-52); Hemoglobin 8.4 g/dL (14.0-18.0); Immature Granulocytes # (auto) 0.39 K/uL (0.00-0.02); Immature Granulocytes % (auto) 5.5 %; Lymphocytes # (auto) 0.48 K/uL (1.2-3.4); Lymphocytes % (auto) 6.8 %; Mean Corpuscular Hemoglobin 27.3 pg (25-34); Mean Corpuscular Hgb Conc 33.3 g/dL (32-36); Mean Corpuscular Volume 81.8 fL (80-100); Mean Platelet Volume 9.5 fL (7.4-10.4); Monocytes # (auto) 0.39 K/uL (0.11-0.59); Monocytes % (auto) 5.5 %; Neutrophils # (auto) 5.75 K/uL (1.4-6.5); Platelet Count 79 K/uL (130-400); Platelet Estimate Decreased (Normal); Polychromasia 1+; RDW Coefficient of Variation 16.2 % (11.5-14.5); RDW Standard Deviation 47.7 fL (36.4-46.3); Red Blood Count 3.08 M/uL (4.7-6.1); White Blood Count 7.03 K/uL (4.8-10.8)
[2021-06-24] MEDS: ACETAMINOPHEN 325 MG TAB PO PRN (23:26)
[2021-06-25] MEDS: CIPROFLOXACIN / D5W 400 MG/200 ML BAG IV SCH (06:15)
[2021-06-25] MEDS: traMADol HCL 50 MG TABLET PO PRN (07:46)
[2021-06-25 07:54] LABS: Hematocrit (blood only) 25.2 % (42-52); Hemoglobin 8.1 g/dL (14.0-18.0); Mean Corpuscular Hemoglobin 27.3 pg (25-34); Mean Corpuscular Hgb Conc 32.1 g/dL (32-36); Mean Corpuscular Volume 84.8 fL (80-100); Nucleated RBC # (auto) 0.08 K/uL (0-0); Nucleated RBC % (auto) 1.4 %; RDW Coefficient of Variation 16.5 % (11.5-14.5); RDW Standard Deviation 50.7 fL (36.4-46.3); Red Blood Count 2.97 M/uL (4.7-6.1); White Blood Count 5.45 K/uL (4.8-10.8)
[2021-06-25 08:15] LABS: Mean Platelet Volume 9.1 fL (7.4-10.4); Platelet Count 72 K/uL (130-400)
[2021-06-25 08:21] LABS: BUN Creatinine Ratio 40.3 (10-20); Calcium 7.9 mg/dl (8.5-10.1); Est GFR (African American) 120.2 ml/min; Est GFR (Non-African American) 103.7 ml/min; Potassium 3.7 mmol/L (3.5-5.1)
[2021-06-25] MEDS: LIDOCAINE 5% 1 PATCH TD SCH (08:44)
--- NOTE | 2021-06-25 08:55 | Urology Progress Note ---
Date of Service June 25, 2021 Assessment & Plan (1) Bladder mass: (2) Osseous metastasis: Plan: Status post TURBT I hope that we will obtain a diagnosis as well as provide sufficient tissue for full testing for future treatment Unfortunately, we probably will not have pathology back until early next week I do think it is appropriate to consider involving the oncologistlikely the beginning of next week He still may need a biopsy of a distal met to prove that this is solitary disease affecting all areasI will defer that decision to oncology Keep Velasquez catheter No other changes from our standpoint through the weekend Admission and Anticipated Discharge Date Admission Date: June 21, 2021 Subjective Status post TURBT yesterday Grossly abnormal bladder Tissue collected Cauterization of all oozing areasunfortunately he is oozing diffusely from the bladder No issues overnight Urine remains mildly bloody Denies any pain Otherwise no changessevere shoulder, hip pain Remains tachycardic Physical Exam Physical Exam: Somewhat frail-appearing Urine mixed between clear and bloody within the tubing Abdomen soft Limited mobility of his upper extremities and lower extremities Results & Data ([facility]) Vital Signs (Past 12 Hours) Vital Signs Temp Pulse Resp BP Pulse Ox Pulse Ox 06/25/21 07:48 36.7 C 122 H 16 115/65 91 06/25/21 03:24 36.8 C 111 H 18 99/64 L 96 06/24/21 23:06 37 C 118 H 18 110/66 96 06/24/21 21:00 95 PG Care Time/CCT Total # of Minutes Spent Total Time Spent with Patient: Total time spent is greater than 50% in coordination of care (as documented) at patient's floor/unit and/or counseling patient: Coding Level of Care Code 96366 Subseq Hosp Care Lvl 3 Diagnoses Bladder mass N32.89 Osseous metastasis C79.51
[2021-06-25] MEDS: ACETAMINOPHEN 325 MG TAB PO PRN ×2 (11:14→20:37)
--- NOTE | 2021-06-25 12:05 | Hospitalist Progress Note ---
Date of Service June 25, 2021 Assessment & Plan (1) Acute blood loss anemia: (2) Bladder mass: Plan: Patient presented from home with reports of lightheadedness, dizziness, shortness of breath, hematuria. Was seen in the ED a few weeks ago for bilateral hip pain. X-ray at that time showed osseous metastatic disease, patient referred for outpatient follow-up. Patient states that he made an appointment at [facility] clinic for 06/23. 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 There are small adjacent soft tissue nodules compatible with local metastasis. The mass results in obstruction of the distal ureters with moderate to severe bilateral hydroureteronephrosis. There is a delayed right-sided nephrogram. Extensive osseous metastatic disease with questioned anterior epidural disease at L5. No acute pathologic fracture identified. Prominent subcentimeter iliac chain and inguinal lymph nodes are suspicious for lymphatic metastasis. CT chest shows evidence of extensive/diffuse osteoblastic metastatic disease. There are mildly enlarged left supraclavicular, mediastinal, and right hilar lymph nodes. These are suspicious for metastatic disease. There is a tiny cluster of nodules in the left upper lobe measuring up to 4 mm. These are likely on an inflammatory basis. Attention at follow-up is recommended. Pain control (4) Lactic acidosis: Plan: Lactic acid 4.8 --> 1.3 Hypovolemia, underlying malignancy likely contributing (5) Thrombocytopenia: Plan: On admission, Platelets 83K Likely due to underlying malignancy Platelet was 72K Platelet was given pre biopsy in view of active bleeding and thrombocytopenia (6) Cardiomegaly: Plan: Noted on CT chest Echo report reviewed.No obvious pathology (7) DVT prophylaxis: Plan: SCDs due to hematuria, anemia Care mgt on board for dc planning/complex needs as patient reports he has no family, lives at his workplace as boss allows him to stay there in exchange for helping out Patient will be here through the weekend. Will coordinate with CM and other specialist by next week to ascertain plan of care as patient is technically homeless Palliative consult to help patient with goals of care Admission and Anticipated Discharge Date Admission Date: June 21, 2021 Subjective Patient seen and examined. Reports weakness and back pain Denied dizziness or headache Has chronic dry cough Denies any chest pain, shortness of breath Denies fevers, chills, nausea, vomiting, abdominal pain, diarrhea, constipation Still having hematuria Physical Exam Constitutional: + well hydrated; no acute distress Eyes: PERRL, conjunctivae normal, anicteric sclerae ENMT: external ear and nose normal, oropharynx normal Respiratory: normal respiratory effort, lungs clear to auscultation Cardiovascular: Rate/Rhythm: regular rhythm and + tachycardic S1 S2 Gastrointestinal (Abdomen): normal bowel sounds, soft, nontender, no hepatosplenomegaly Musculoskeletal: no cyanosis or clubbing, extremities motor strength 5/5 Neurologic: PERRL, EOMI, accommodation nl, no face palsy, no dysarthria Psychiatric: A+Ox3, euthymic affect Genitourinary: Velasquez with bloody urine Results & Data Results & Data ([facility]) Vital Signs (Past 12 Hours) Vital Signs Temp Pulse Resp BP Pulse Ox 06/25/21 11:45 36.8 C 124 H 18 130/73 94 06/25/21 07:48 36.7 C 122 H 16 115/65 91 06/25/21 03:24 36.8 C 111 H 18 99/64 L 96 Laboratory Results Abnormal lab results 06/24/21 06/25/21 06/25/21 Range/Units 14:30 07:01 07:01 RBC 3.08 L 2.97 L (4.7-6.1) M/uL Hgb 8.4 L 8.1 L (14.0-18.0) g/dL Hct 25.2 L 25.2 L (42-52) % RDW Std Deviation 47.7 H 50.7 H (36.4-46.3) fL RDW Coeff of Marva 16.2 H 16.5 H (11.5-14.5) % Plt Count 79 L D 72 L (130-400) K/uL Lymph # (Auto) 0.48 L (1.2-3.4) K/uL Immature Gran # (Auto) 0.39 H (0.00-0.02) K/uL Absolute Nucleated RBC 0.08 H 0.08 H (0-0) K/uL Platelet Estimate Decreased L (Normal) Sodium 132 L (136-145) mmol/L BUN 27 H (6-23) mg/dl BUN/Creatinine Ratio 40.3 H (10-20) Glucose 141 H (70-99(Fasting)) mg/dl Calcium 7.9 L (8.5-10.1) mg/dl
[2021-06-26 07:31] LABS: Hematocrit (blood only) 24.9 % (42-52); Hemoglobin 8.1 g/dL (14.0-18.0); Mean Corpuscular Hemoglobin 27.6 pg (25-34); Mean Corpuscular Hgb Conc 32.5 g/dL (32-36); Mean Corpuscular Volume 84.7 fL (80-100); Nucleated RBC # (auto) 0.12 K/uL (0-0); Nucleated RBC % (auto) 1.8 %; RDW Coefficient of Variation 16.3 % (11.5-14.5); RDW Standard Deviation 50.5 fL (36.4-46.3); Red Blood Count 2.94 M/uL (4.7-6.1); White Blood Count 6.88 K/uL (4.8-10.8)
[2021-06-26 07:40] LABS: Mean Platelet Volume 9.8 fL (7.4-10.4); Platelet Count 79 K/uL (130-400)
[2021-06-26 08:04] LABS: BUN Creatinine Ratio 36.1 (10-20); Creatinine Clr Calc Pharmacy 108.6 ml/min; Est GFR (African American) 124.9 ml/min; Est GFR (Non-African American) 107.8 ml/min; Potassium 3.9 mmol/L (3.5-5.1)
[2021-06-26] MEDS ORDERED: POLYETHYLENE (MIRALAX) 17 GM PACK PO PRN (08:11)
[2021-06-26] MEDS ORDERED: traMADol HCL 50 MG TABLET PO PRN (08:12)
[2021-06-26] MEDS: LIDOCAINE 5% 1 PATCH TD SCH (08:28)
[2021-06-26] MEDS: ACETAMINOPHEN 325 MG TAB PO PRN (08:28)
--- NOTE | 2021-06-26 09:09 | Urology Progress Note ---
Date of Service June 26, 2021 Assessment & Plan (1) Osseous metastasis: (2) Bladder mass: Plan: Suspected metastatic TCC s/p TURBT for diagnosis - path pending - cont mclaughlin - flush cath PRN - needs onc involvment tomorrow. - may even benefit from palliative radiation to his bony met sites to relive pain Admission and Anticipated Discharge Date Admission Date: June 21, 2021 Subjective no major changes overnight still with hematuria - no irrigation required severe shoulder, hip, and back pain Physical Exam Physical Exam: minimal movement abd soft urine bloody Results & Data ([facility]) Vital Signs (Past 12 Hours) Vital Signs Temp Pulse Pulse Resp BP Pulse Ox 06/26/21 07:58 37.1 C 129 H 22 129/71 96 06/26/21 07:31 118 H 06/26/21 02:51 37 C 117 H 18 124/72 98 06/25/21 23:46 37.6 C H 113 H 18 117/69 96 06/25/21 23:30 112 H PG Care Time/CCT Total # of Minutes Spent Total Time Spent with Patient: Total time spent is greater than 50% in coordination of care (as documented) at patient's floor/unit and/or counseling patient: Coding Level of Care Code 12088 Subseq Hosp Care Lvl 3 Diagnoses Osseous metastasis C79.51 Bladder mass N32.89
[2021-06-26] MEDS: DOCUSATE SODIUM/SENNA 50/8.6MG TAB PO SCH (10:06)
[2021-06-26] MEDS: oxyCODONE HCL IR 5 MG TAB (IMMEDIATE RELEASE) PO PRN ×2 (10:06→16:37)
--- NOTE | 2021-06-26 13:16 | Hospitalist Progress Note ---
Date of Service June 26, 2021 Assessment & Plan (1) Acute blood loss anemia: (2) Bladder mass: Plan: Patient presented from home with reports of lightheadedness, dizziness, shortness of breath, hematuria. Was seen in the ED a few weeks ago for bilateral hip pain. X-ray at that time showed osseous metastatic disease, patient referred for outpatient follow-up. Patient states that he made an appointment at [facility] clinic for 06/23. 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 There are small adjacent soft tissue nodules compatible with local metastasis. The mass results in obstruction of the distal ureters with moderate to severe bilateral hydroureteronephrosis. There is a delayed right-sided nephrogram. Extensive osseous metastatic disease with questioned anterior epidural disease at L5. No acute pathologic fracture identified. Prominent subcentimeter iliac chain and inguinal lymph nodes are suspicious for lymphatic metastasis. CT chest shows evidence of extensive/diffuse osteoblastic metastatic disease. There are mildly enlarged left supraclavicular, mediastinal, and right hilar lymph nodes. These are suspicious for metastatic disease. There is a tiny cluster of nodules in the left upper lobe measuring up to 4 mm. These are likely on an inflammatory basis. Attention at follow-up is recommended. Pain control Oxycodone prn added to pain regimen Bowel regimen Will discuss with onco and rad onco about benefit of radiation to bone mets tomorrow (4) Lactic acidosis: Plan: Lactic acid 4.8 --> 1.3 Hypovolemia, underlying malignancy likely contributing (5) Thrombocytopenia: Plan: On admission, Platelets 83K Likely due to underlying malignancy Platelet was 79K Platelet was given pre biopsy in view of active bleeding and thrombocytopenia (6) Cardiomegaly: Plan: Noted on CT chest Echo report reviewed.No obvious pathology (7) DVT prophylaxis: Plan: SCDs due to hematuria, anemia Care mgt on board for dc planning/complex needs as patient reports he has no family, lives at his workplace as boss allows him to stay there in exchange for helping out Patient will be here through the weekend. Will coordinate with CM and other specialist by next week to ascertain plan of care as patient is technically homeless Palliative consult to help patient with goals of care Admission and Anticipated Discharge Date Admission Date: June 21, 2021 Subjective Patient seen and examined. Continues to report back pain/shoulder pain Denied dizziness or headache Has chronic dry cough Denies any chest pain, shortness of breath Denies fevers, chills, nausea, vomiting, abdominal pain, diarrhea, constipation Still having hematuria Physical Exam Constitutional: + well hydrated; no acute distress Eyes: PERRL, conjunctivae normal, anicteric sclerae ENMT: external ear and nose normal, oropharynx normal Respiratory: normal respiratory effort, lungs clear to auscultation Cardiovascular: Rate/Rhythm: regular rhythm and + tachycardic S1 S2 Gastrointestinal (Abdomen): normal bowel sounds, soft, nontender, no hepatosplenomegaly Musculoskeletal: no cyanosis or clubbing, extremities motor strength 5/5 Neurologic: PERRL, EOMI, accommodation nl, no face palsy, no dysarthria Psychiatric: A+Ox3, euthymic affect Results & Data Results & Data ([facility]) Vital Signs (Past 12 Hours) Vital Signs Temp Pulse Pulse Resp BP Pulse Ox 06/26/21 11:34 36.5 C 111 H 23 111/70 95 06/26/21 07:58 37.1 C 129 H 22 129/71 96 06/26/21 07:31 118 H 06/26/21 02:51 37 C 117 H 18 124/72 98 Laboratory Results Abnormal lab results 06/26/21 06/26/21 Range/Units 07:11 07:11 RBC 2.94 L (4.7-6.1) M/uL Hgb 8.1 L (14.0-18.0) g/dL Hct 24.9 L (42-52) % RDW Std Deviation 50.5 H (36.4-46.3) fL RDW Coeff of Marva 16.3 H (11.5-14.5) % Plt Count 79 L (130-400) K/uL Absolute Nucleated RBC 0.12 H (0-0) K/uL Sodium 130 L (136-145) mmol/L Chloride 96 L (98-107) mmol/L BUN/Creatinine Ratio 36.1 H (10-20) Glucose 110 H (70-99(Fasting)) mg/dl Calcium 8.0 L (8.5-10.1) mg/dl
[2021-06-27] MEDS: oxyCODONE HCL IR 5 MG TAB (IMMEDIATE RELEASE) PO PRN ×3 (06:42→21:49)
[2021-06-27 07:52] LABS: Hematocrit (blood only) 24.3 % (42-52); Hemoglobin 7.8 g/dL (14.0-18.0); Mean Corpuscular Hemoglobin 26.9 pg (25-34); Mean Corpuscular Hgb Conc 32.1 g/dL (32-36); Mean Corpuscular Volume 83.8 fL (80-100); Nucleated RBC # (auto) 0.08 K/uL (0-0); Nucleated RBC % (auto) 1.2 %; RDW Coefficient of Variation 16.3 % (11.5-14.5); RDW Standard Deviation 49.4 fL (36.4-46.3)
[2021-06-27 08:12] LABS: Mean Platelet Volume 9.3 fL (7.4-10.4); Platelet Count 64 K/uL (130-400)
[2021-06-27] MEDS: LIDOCAINE 5% 1 PATCH TD SCH (08:42)
[2021-06-27] MEDS: DOCUSATE SODIUM/SENNA 50/8.6MG TAB PO SCH (08:42)
[2021-06-27 08:45] LABS: BUN Creatinine Ratio 40.4 (10-20); Creatinine Clr Calc Pharmacy 116.1 ml/min; Est GFR (African American) 128.5 ml/min; Est GFR (Non-African American) 110.8 ml/min
--- NOTE | 2021-06-27 09:44 | Urology Progress Note ---
Date of Service June 27, 2021 Assessment & Plan (1) Osseous metastasis: (2) Bladder mass: Plan: Suspected metastatic TCC s/p TURBT for diagnosis - Pathology pending - Continue Velasquez catheter - Flush cath PRN - Needs onc involvement - May even benefit from palliative radiation to his bony met sites to relieve pain - Continue supportive care and management per hospital medicine team - Will continue to follow Admission and Anticipated Discharge Date Admission Date: June 21, 2021 Subjective Patient seen and examined at bedside this AM. He is awake, alert and sitting up in bed. No acute issues overnight. Denies flank, abdominal or suprapubic pain. Continues to have shoulder/hip pain, currently tolerable with Lidocaine patch and PO oxycodone. Velasquez catheter intact, patent and draining blood tinged urine, no clots noted within tubing. Velasquez did not require manual irrigation overnight. No nausea or vomiting. No fever or chills. Offers no additional concerns at present. Review of Systems Constitutional: as per Subjective / HPI Gastrointestinal: as per Subjective / HPI Genitourinary: + as per Subjective / HPI Physical Exam Constitutional: + thin; no acute distress Respiratory: normal respiratory effort and able to speak in complete sentences; no respiratory distress and no labored breathing Cardiovascular: Extremities: no pedal edema Gastrointestinal (Abdomen): Inspection/Auscultation: abdomen normal to inspection; abdomen not distended Musculoskeletal: Head/Neck/Chest: normocephalic Neurologic: moves all extremities and awake Psychiatric: Orientation: alert and oriented x 3 Genitourinary: Velasquez intact, patent, and draining blood tinged urine, no clots noted within tubing. Results & Data ([facility]) Vital Signs (Past 12 Hours) Vital Signs Temp Pulse Pulse Resp BP Pulse Ox 06/27/21 07:41 36.9 C 122 H 19 114/69 94 06/27/21 03:33 37.4 C 115 H 16 122/71 94 06/26/21 23:00 127 H 06/26/21 22:52 37.4 C 125 H 16 124/69 94 PG Care Time/CCT Total # of Minutes Spent Total Time Spent with Patient: Total time spent is greater than 50% in coordination of care (as documented) at patient's floor/unit and/or counseling patient: Coding Level of Care Code 93714 Subseq Hosp Care Lvl 2 Diagnoses Osseous metastasis C79.51 Bladder mass N32.89
--- NOTE | 2021-06-27 11:20 | Hospitalist Progress Note ---
Date of Service June 27, 2021 Assessment & Plan (1) Acute blood loss anemia: (2) Bladder mass: Plan: Patient presented from home with reports of lightheadedness, dizziness, shortness of breath, hematuria. Was seen in the ED a few weeks ago for bilateral hip pain. X-ray at that time showed osseous metastatic disease, patient referred for outpatient follow-up. Patient states that he made an appointment at [facility] clinic for 06/23. Reported father had throat cancer from cigarette/cigar/pipe smoking and mother had bone cancer In the ED, Hgb 6.2 Likely acute blood loss anemia due to hematuria secondary to bladder mass Bladder mass likely malignant based on metastatic findings on imaging Initially hypotensive 88/50, improved after IVF Got 4 PRBC so far since admission Hb is 7.8 Monitor S/p Cystoscopy with Transurethral resection of bladder tumor on 06/24/21 Urine cytology from 06/23/21 and pathology showed high grade urothelial carcinoma Patient will follow up with onco outpatient (3) Osseous metastasis: Plan: CT ABD/pelvis shows Large infiltrative mass of the urinary bladder is suggestive of a primary malignancy which demonstrates transmural spread of disease into the right perivesicular tissues and right hemipelvis. There are small adjacent soft tissue nodules compatible with local metastasis. The mass results in obstruction of the distal ureters with moderate to severe bilateral hydroureteronephrosis. There is a delayed right-sided nephrogram. Extensive osseous metastatic disease with questioned anterior epidural disease at L5. No acute pathologic fracture identified. Prominent subcentimeter iliac chain and inguinal lymph nodes are suspicious for lymphatic metastasis. CT chest shows evidence of extensive/diffuse osteoblastic metastatic disease. There are mildly enlarged left supraclavicular, mediastinal, and right hilar lymph nodes. These are suspicious for metastatic disease. There is a tiny cluster of nodules in the left upper lobe measuring up to 4 mm. These are likely on an inflammatory basis. Attention at follow-up is recommended. Pain control Continue opioids Bowel regimen Rad onc consult (4) Lactic acidosis: Plan: Lactic acid 4.8 --> 1.3 Hypovolemia, underlying malignancy likely contributing (5) Thrombocytopenia: Plan: On admission, Platelets 83K Likely due to underlying malignancy Platelet was 64K Platelet was given pre biopsy in view of active bleeding and thrombocytopenia (6) Hyponatremia: Plan: Na has been low since admission Serum osm 281 Uosm 621 Maulik 48 TSH normal Possibly SIADH Fluid restrict and monitor (7) Cardiomegaly: Plan: Noted on CT chest Echo report reviewed.No obvious pathology (8) DVT prophylaxis: Plan: SCDs due to hematuria, anemia Care mgt on board for dc planning/complex needs as patient reports he has no family, lives at his workplace as boss allows him to stay there in exchange for helping out Palliative eval appreciated CM working on placement Admission and Anticipated Discharge Date Admission Date: June 21, 2021 Subjective Patient seen and examined. Continues to report back pain/shoulder pain with intermittent relief with pain medications Denied dizziness or headache Has chronic dry cough Denies any chest pain, shortness of breath Denies fevers, chills, nausea, vomiting, abdominal pain, diarrhea, constipation Still having hematuria Physical Exam Constitutional: + well hydrated; no acute distress Eyes: PERRL, conjunctivae normal, anicteric sclerae ENMT: external ear and nose normal, oropharynx normal Respiratory: normal respiratory effort, lungs clear to auscultation Cardiovascular: Rate/Rhythm: regular rhythm and + tachycardic S1 S2 Gastrointestinal (Abdomen): normal bowel sounds, soft, nontender, no hepatosplenomegaly Musculoskeletal: no cyanosis or clubbing, extremities motor strength 5/5 Neurologic: PERRL, EOMI, accommodation nl, no face palsy, no dysarthria Psychiatric: A+Ox3, euthymic affect Genitourinary: Velasquez in situ Results & Data Results & Data ([facility]) Vital Signs (Past 12 Hours) Vital Signs Temp Pulse Pulse Resp BP Pulse Ox 06/27/21 11:06 37.1 C 123 H 21 128/71 95 06/27/21 08:00 115 H 06/27/21 07:41 36.9 C 122 H 19 114/69 94 06/27/21 03:33 37.4 C 115 H 16 122/71 94 Laboratory Results Abnormal lab results 06/27/21 06/27/21 Range/Units 07:42 07:42 RBC 2.90 L (4.7-6.1) M/uL Hgb 7.8 L (14.0-18.0) g/dL Hct 24.3 L (42-52) % RDW Std Deviation 49.4 H (36.4-46.3) fL RDW Coeff of Marva 16.3 H (11.5-14.5) % Plt Count 64 L (130-400) K/uL Absolute Nucleated RBC 0.08 H (0-0) K/uL Sodium 128 L (136-145) mmol/L Chloride 94 L (98-107) mmol/L Creatinine 0.57 L (0.6-1.4) mg/dl BUN/Creatinine Ratio 40.4 H (10-20) Glucose 108 H (70-99(Fasting)) mg/dl Calcium 8.0 L (8.5-10.1) mg/dl
--- NOTE | 2021-06-27 13:32 | Palliative Care Consultation ---
Date of Consultation June 27, 2021 Assessment & Plan (1) Hip pain, bilateral: With known metastatic bladder cancer. His description is consistent with neuropathic pain. He does get relief with oxycodone. He has a pretty impressive history of alcohol use and it would be ideal to optimize any nonopioid treatments that we can. Will add gabapentin at HS. Would consider radiation oncology referral to evaluate for possible benefit of radiation therapy. Monitor bowels closely. (2) Palliative care encounter: I talked with Kojo about how he feels about his recent diagnosis. He tells me that he's not surprised because both his parents of cancer and he expected that he would too. I asked him what his biggest worry was and he told me that he's worried about being homeless. 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 He is worried about where he will stay since he can't work. He asked about SNF placement for rehab "to get better". I think placement would be a good idea for him and discussed this with case management. They have applied for MA for him. I also asked him what getting better meant to him. His hope is that he would be able to work again. We talked about his extensive disease and concern that this is likely not a curable cancer. We talked about his thoughts about what he would do if he couldn't get better. He understands that he would and denies fears or worries about this, but he is looking forward to speaking with oncology about treatment options. He would be interested in treatments. Palliative care will follow. We will discuss code status in detail after he has had a chance to hear more about his prognosis and treatment options. (3) Bladder mass: History of Present Illness Reason for Consultation: goals of care Requesting Physician: Dr. Da Silva Attending Physician: Ania Da Silva MD History of Present Illness 61 yo gentleman who was admitted with dizziness and hematuria. He was found to have a hemoglobin of 6.1 on admission and has required 4 units of PRBCs since admission. CT revealed a large bladder mass obstructing his distal ureters with bilateral hydronephrosis. He was also found to iliac and inguinal lymphadenopathy and extensive skeletal lesions consistent with metastatic disease. He has pathologic fractures of his second and 8th ribs. He has a fracture in the right transverse process of T9 and a lesion at L5 with possible epidural involvement. He complains of pain in his shoulders and hips. He tells me that he was barely able to stand and pivot due to pain and weakness. He describes the pain as stabbing and burning. He says that it radiates down both arms and both legs. He denies numbness or tingling. He does get some relief with prn oxycodone. He did have cystoscopy with tumor resection and pathology shows high grade urothelial carcinoma. Allergies Allergy/AdvReac Type Severity Reaction Status Date / Time No Known Allergies Allergy Unverified 06/21/21 15:06 Home Medications Medication Instructions Recorded Confirmed Type No Known Home Medications 06/21/21 06/21/21 History Patient History Medical History No pertinent past medical history Surgical History No pertinent past surgical history Family History Mother Bone cancer Father Throat cancer Social History Smoking Status: Current every day smoker Tobacco Type: Cigarettes Cigarettes Per Day: 20; Hx Alcohol Use: Yes Alcohol type: beer Alcohol Intake Frequency: 4 or More x per/Week Alcohol Intake Frequency Comment: 2-3 beers/day Hx Substance Use: No Preferred Language: Bulgarian Communication Ability: Effective Continuing Education Instructor Required: No Beliefs That Will Affect Care: None Current Living Situation: Alone How many Children do You have: 0 Other Information That Helps Us Care for You: No Feels Safe at Home: Yes Safety Concerns: Feels Safe At This Time Assistive Devices: None Review of Systems Review of Systems: Leona Symptom Assessment Scale Pain 2/3 Dyspnea 0/3 Anxiety 0/3 Fatigue 2/3 Anorexia 2/3 Nausea 0/3 He denies constipation. LBM "a couple days ago" Palliative Performance Score 40% Physical Exam Constitutional: no acute distress ENMT: Mouth: oral mucous membranes not dry Respiratory: normal respiratory effort; no labored breathing Neurologic: moves all extremities and awake; not confused Results & Data ([facility]) Vital Signs (Past 12 Hours) Vital Signs Temp Pulse Pulse Resp BP Pulse Ox 06/27/21 11:06 98.8 F 123 H 21 128/71 95 06/27/21 08:00 115 H 06/27/21 07:41 98.4 F 122 H 19 114/69 94 06/27/21 03:33 99.3 F 115 H 16 122/71 94 PG Care Time/CCT Total # of Minutes Spent Total Time Spent: 70 Total Time Spent with Patient: Total time spent is greater than 50% in coordination of care (as documented) at patient's floor/unit and/or counseling patient: goals of care, prognosis, symptom management, coordination of care Coding Level of Care Code 49675 Initial Inpt Care Lvl 3 Diagnoses Hip pain, bilateral M25.551; M25.552 Palliative care encounter Z51.5 Bladder mass N32.89
--- NOTE | 2021-06-27 15:07 | Radiation OncologyConsultation ---
Date of Consultation June 27, 2021 Assessment & Plan (1) Bladder cancer metastasized to bone: Assessment: Mr. Mejia is a 61-year-old gentleman who presents with a new diagnosis of widespread metastatic bladder cancer to bone. The patient did undergo a TURBT by Dr. Haque to establish a diagnosis. The patient was seen by palliative care who has recommended continuing pain management as well as radiation oncology consultation due to pain from metastatic disease to the bone. Of note, the patient was seen by medical oncology but will need to follow-up in the outpatient setting. Recommendation: Palliative external beam radiation therapy to pelvis (patient states hip pain is currently worst). 1 to 5 fractions based on volume of treatment. Plan: 1. CT simulation for treatment planning for radiation therapy. 2. Follow-up with medical oncology patient the outpatient setting. 3. Pain management as per primary team and palliative care medicine. 4. Appreciate urology's management as well. 5. Patient and family encouraged to call us with any further questions or concerns. Rationale/Explanation of Treatment: I have explained the indications, alternatives, benefits, risks and side effects of radiation therapy to the abdomen. I have explained the most common side effects including but are not limited to skin erythema, skin break down, hair loss, fibrosis, telengectesia, adhesion development, radiation pneumonitis, rib and bone fracture, renal failure, kidney disease, liver disease, liver failure, bowel obstruction, bowel perforation, urinary symptoms, nausea, vomiting, diarrhea, spinal cord myelopathy, anemia, fatigue and development of secondary malignancy. I also discussed that male patients may have issues with erections (potency) and infertility issues depending on their age and area of treatment. I have explained the CT simulation process and treatment planning. I explained what to expect before, during and after treatment on a regular basis. The patient u nderstands and would be willing to consent to treatment. I did explain the indications, alternatives, benefits, risks and side effects of external beam radiation therapy. I did explain the most common side effects including, but not limited to, skin erythema, skin breakdown, hyperpigmentation, telangiectasia, wound complications, perianal fistula development, fistula formation, nausea, vomiting, bowel obstruction, bowel perforation, dysuria, increased urinary frequency, urgency, diarrhea, constipation, melena, hematochezia, hematuria, radiation cystitis, radiation proctitis, fatigue, decreased blood counts, wound complications from surgery, rectal incontinence, secondary malignancy development. I did explain the procedures and daily process of radiation therapy. The patient understands and would be willing to consent to treatment. The patient had multiple questions which were answered to their full satisfaction. Thank you for allowing us to participate in the care of this patient. This chart was completed in part utilizing [employer] Speech Voice Recognition software. Attempts were made to minimize the grammatical errors, random word insertions, pronoun errors and incomplete sentences. Any formal questions or concerns about the content, text or information contained within the body of this dictation should be directly addressed to the provider for clarification. Nancy Oliveira MD Department of Radiation Oncology [facility] History of Present Illness Attending Physician: Ania Da Silva MD History of Present Illness 06/02/2021. Patient presents with bilateral hip pain to the emergency room. 06/02/2021. Hip and pelvis x-ray. IMPRESSION: 1. No acute fracture or dislocation. 2. Diffusely heterogeneous appearance of the bone marrow with findings suspicious for multifocal skeletal metastasis. Oncologic workup with nonemergent bone scan recommended. 06/21/2021. Patient presents with lightheadedness, dizziness, shortness of breath and hematuria. Admitted to hospital for further work-up and evaluation. 06/21/2021. Chest x-ray. IMPRESSION: 1. Skeletal heterogeneity and sclerosis. This is suspicious for metastatic disease such as prostate carcinoma. 2. Equivocal left midlung opacity. This is likely artifactual or related to rib lesions however airspace disease could appear similar. This can be assessed on follow-up radiographs. 06/21/2021. CT of chest. IMPRESSION: 1. Cardiomegaly and emphysema. 2. Small right pleural effusion. 3. There is evidence of extensive/diffuse osteoblastic metastatic disease as above. 4. Pathologic fractures as above. 5. There are mildly enlarged left supraclavicular, mediastinal, and right hilar lymph nodes. These are suspicious for metastatic disease. 6. There is a tiny cluster of nodules in the left upper lobe measuring up to 4 mm. These are likely on an inflammatory basis. Attention at follow-up is recommended. 7. Bilateral hydronephrosis is partially visualized in the upper abdomen. 8. Additional findings as above. 06/21/2021. CT of abdomen/pelvis. IMPRESSION: 1. Large infiltrative mass of the urinary bladder is suggestive of a primary malignancy which demonstrates transmural spread of disease into the right perivesicular tissues and right hemipelvis. There are small adjacent soft tissue nodules compatible with local metastasis. 2. The mass results in obstruction of the distal ureters with moderate to severe bilateral hydroureteronephrosis. There is a delayed right- sided nephrogram. 3. Extensive osseous metastatic disease with questioned anterior epidural disease at L5. No acute pathologic fracture identified 4. Pr ominent subcentimeter iliac chain and inguinal lymph nodes are suspicious for lymphatic metastasis. 5. Please refer to chest CT of same day for additional findings. 6. Additional findings as above. 06/21/2021. Urology consultation. Recommendation is to proceed with cystoscopy to confirm tissue diagnosis. 06/22/2021. Medical oncology consultation. Obtain urine for cytology. Recommend biopsy to establish diagnosis. 06/23/2021. Urine cytology. High-grade urothelial carcinoma. 06/24/2021. TURBT and cystoscopy. Findings include multiple ulcerating areas within the bladder and multiple abnormal findings including a entirely fixed bladder. Pathology reveals invasive high-grade urothelial carcinoma without muscularis propria invasion. 06/27/2021. Palliative care consultation by Dr. Ma. Continue nonnarcotic pain management due to history of alcohol abuse and consider adding gabapentin. Radiation oncology consultation should be considered. Allergies Allergy/AdvReac Type Severity Reaction Status Date / Time No Known Allergies Allergy Unverified 06/21/21 15:06 Home Medications Medication Instructions Recorded Confirmed Type No Known Home Medications 06/21/21 06/21/21 History Patient History Medical History (Updated 06/27/21 @ 16:01 by Ania Da Silva MD) Bladder cancer metastasized to bone No pertinent past medical history Surgical History No pertinent past surgical history Family History Mother Bone cancer Father Throat cancer Social History Smoking Status: Current every day smoker Tobacco Type: Cigarettes Cigarettes Per Day: 20; Hx Alcohol Use: Yes Alcohol type: beer Alcohol Intake Frequency: 4 or More x per/Week Alcohol Intake Frequency Comment: 2-3 beers/day Hx Substance Use: No Preferred Language: Greek Communication Ability: Effective Dramatic Coach Required: No Beliefs That Will Affect Care: None Current Living Situation: Alone How many Children do You have: 0 Other Information That Helps Us Care for You: No Feels Safe at Home: Yes Safety Concerns: Feels Safe At This Time Assistive Devices: None Review of Systems Review of Systems: The patient complains of fatigue and widespread diffuse pain. He denies any significant focal neurologic deficits. Physical Exam Constitutional: WD/WN, vitals as above Skin: no rashes, warm and dry Psychiatric: A+Ox3, euthymic affect Time Spent Attending I spent 20 minutes in preparation for this consultation including reviewing all the clinical records, reviewing laboratory studies, pathology reports and imaging results. I spent 20 minutes with direct face to face interaction with the patient and/or family including performing a physical exam and answering all questions. I spent 20 minutes documenting this patient's visit.
[2021-06-27] MEDS: GABAPENTIN 300 MG CAP PO SCH (21:49)
[2021-06-28 07:55] LABS: Hematocrit (blood only) 24.6 % (42-52); Hemoglobin 8.1 g/dL (14.0-18.0); Mean Corpuscular Hemoglobin 27.6 pg (25-34); Mean Corpuscular Hgb Conc 32.9 g/dL (32-36); Nucleated RBC # (auto) 0.11 K/uL (0-0); Nucleated RBC % (auto) 1.5 %; RDW Coefficient of Variation 16.5 % (11.5-14.5); RDW Standard Deviation 50.3 fL (36.4-46.3); Red Blood Count 2.93 M/uL (4.7-6.1); White Blood Count 7.25 K/uL (4.8-10.8)
[2021-06-28 07:57] LABS: Platelet Count 66 K/uL (130-400)
[2021-06-28] MEDS: LIDOCAINE 5% 1 PATCH TD SCH (08:03)
[2021-06-28] MEDS: oxyCODONE HCL IR 5 MG TAB (IMMEDIATE RELEASE) PO PRN ×2 (08:03→17:58)
[2021-06-28] MEDS: DOCUSATE SODIUM/SENNA 50/8.6MG TAB PO SCH ×2 (08:04→08:06)
[2021-06-28 08:22] LABS: BUN Creatinine Ratio 49.2 (10-20); Creatinine Clr Calc Pharmacy 109.7 ml/min; Est GFR (African American) 126.6 ml/min; Est GFR (Non-African American) 109.3 ml/min; Potassium 4.2 mmol/L (3.5-5.1)
[2021-06-28] MEDS ORDERED: guaiFENesin SUGAR FREE 200 MG/10 ML UDC PO PRN (10:06)
--- NOTE | 2021-06-28 10:35 | Hospitalist Progress Note ---
Date of Service June 28, 2021 Assessment & Plan (1) Acute blood loss anemia: (2) Bladder mass: Plan: Patient presented from home with reports of lightheadedness, dizziness, shortness of breath, hematuria. Was seen in the ED a few weeks ago for bilateral hip pain. X-ray at that time showed osseous metastatic disease, patient referred for outpatient follow-up. Patient states that he made an appointment at [facility] clinic for 06/23. Reported father had throat cancer from cigarette/cigar/pipe smoking and mother had bone cancer In the ED, Hgb 6.2 Likely acute blood loss anemia due to hematuria secondary to bladder mass Bladder mass likely malignant based on metastatic findings on imaging Initially hypotensive 88/50, improved after IVF Got 4 PRBC so far since admission Hb is 8.1 today. Has been stable S/p Cystoscopy with Transurethral resection of bladder tumor on 06/24/21 Urine cytology from 06/23/21 and pathology showed high grade urothelial carcinoma Patient will follow up with onco outpatient (3) Osseous metastasis: Plan: CT ABD/pelvis shows Large infiltrative mass of the urinary bladder is suggestive of a primary malignancy which demonstrates transmural spread of disease into the right perivesicular tissues and right hemipelvis. There are small adjacent soft tissue nodules compatible with local metastasis. The mass results in obstruction of the distal ureters with moderate to severe bilateral hydroureteronephrosis. There is a delayed right-sided nephrogram. Extensive osseous metastatic disease with questioned anterior epidural disease at L5. No acute pathologic fracture identified. Prominent subcentimeter iliac chain and inguinal lymph nodes are suspicious for lymphatic metastasis. CT chest shows evidence of extensive/diffuse osteoblastic metastatic disease. There are mildly enlarged left supraclavicular, mediastinal, and right hilar lymph nodes. These are suspicious for metastatic disease. There is a tiny cluster of nodules in the left upper lobe measuring up to 4 mm. These are likely on an inflammatory basis. Attention at follow-up is recommended. Pain control Continue opioids Bowel regimen Rad onc evaluation appreciated. Will f/u rad onc outpatient (4) Lactic acidosis: Plan: Lactic acid 4.8 --> 1.3 Hypovolemia, underlying malignancy likely contributing (5) Thrombocytopenia: Plan: On admission, Platelets 83K Likely due to underlying malignancy Platelet was 66K Platelet was given pre biopsy in view of active bleeding and thrombocytopenia (6) Hyponatremia: Plan: Na has been low since admission Serum osm 281 Uosm 621 Maulik 48 TSH normal Possibly SIADH Fluid restrict and monitor Na is 130 today (7) Cardiomegaly: Plan: Noted on CT chest Echo report reviewed.No obvious pathology Patient has persistent sinus tachycardia Start low dose metoprolol and monitor (8) DVT prophylaxis: Plan: SCDs due to hematuria, anemia Care mgt on board for dc planning/complex needs as patient reports he has no family, lives at his workplace as boss allows him to stay there in exchange for helping out Palliative eval appreciated CM working on placement Admission and Anticipated Discharge Date Admission Date: June 21, 2021 Subjective Patient seen and examined. Has back pain/shoulder pain with intermittent relief with pain medications Has chronic dry cough Denies any chest pain, shortness of breath Denies fevers, chills, nausea, vomiting, abdominal pain, diarrhea, constipation Denied dizziness, headache Still having hematuria Physical Exam Constitutional: + well hydrated; no acute distress Eyes: PERRL, conjunctivae normal, anicteric sclerae ENMT: external ear and nose normal, oropharynx normal Respiratory: normal respiratory effort, lungs clear to auscultation Cardiovascular: Rate/Rhythm: regular rhythm and + tachycardic S1 S2 Gastrointestinal (Abdomen): normal bowel sounds, soft, nontender, no hepatosplenomegaly Musculoskeletal: no cyanosis or clubbing, extremities motor strength 5/5 Neurologic: PERRL, EOMI, accommodation nl, no face palsy, no dysarthria Psychiatric: A+Ox3, euthymic affect Genitourinary: Velasquez in situ with blood tinged urine Results & Data Results & Data ([facility]) Vital Signs (Past 12 Hours) Vital Signs Temp Pulse Pulse Resp BP Pulse Ox 06/28/21 08:00 36.5 C 118 H 16 119/73 95 06/28/21 03:27 36.9 C 123 H 17 124/67 93 06/27/21 23:44 37.0 C 128 H 17 113/62 92 06/27/21 23:00 128 H Laboratory Results Abnormal lab results 06/28/21 06/28/21 Range/Units 07:33 07:33 RBC 2.93 L (4.7-6.1) M/uL Hgb 8.1 L (14.0-18.0) g/dL Hct 24.6 L (42-52) % RDW Std Deviation 50.3 H (36.4-46.3) fL RDW Coeff of Marva 16.5 H (11.5-14.5) % Plt Count 66 L (130-400) K/uL Absolute Nucleated RBC 0.11 H (0-0) K/uL Sodium 130 L (136-145) mmol/L Chloride 95 L (98-107) mmol/L Anion Gap 12 H (3-11) BUN 29 H (6-23) mg/dl Creatinine 0.59 L (0.6-1.4) mg/dl BUN/Creatinine Ratio 49.2 H (10-20) Calcium 8.0 L (8.5-10.1) mg/dl
--- NOTE | 2021-06-28 10:40 | Urology Progress Note ---
Date of Service June 28, 2021 Assessment & Plan (1) Osseous metastasis: (2) Bladder mass: Plan: Metastatic TCC s/p TURBT for diagnosis. - Plan of care reviewed with Dr. Haque, on-call urologist. 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 - Results of path reviewed with patient by rad oncology, plans to start radiation in near future and f/u with medical onc outpatient. - Medical oncology, radiation oncology and palliative medicine on board. - Continue Velasquez catheter for now. - Flush cath PRN. - Can consider a voiding trial in the future depending on treatments/response/etc. - From standpoint, no further intervention needed. - Recommend continued care per radiation oncology, medical oncology and palliative medicine. - Urology will sign off at this time. Please reconsult us with any questions/concerns. Admission and Anticipated Discharge Date Admission Date: June 21, 2021 Subjective Patient seen and examined at bedside this AM. He is awake, alert and sitting up at the side of the bed. No acute complaints. Continues to have bilateral hip pain and shoulder pain, currently tolerable. Denies abdominal, flank or suprapubic pain. Velasquez intact, patent and draining light red/maroon urine. No manual irrigation required overnight. No nausea or vomiting. No fever or chills. No additional concerns at this time. Review of Systems Constitutional: as per Subjective / HPI Respiratory: + cough Gastrointestinal: as per Subjective / HPI Genitourinary: + as per Subjective / HPI Musculoskeletal: as per Subjective / HPI Physical Exam Constitutional: + thin; no acute distress Respiratory: normal respiratory effort and able to speak in complete sentences; no respiratory distress and no labored breathing Cardiovascular: Extremities: no pedal edema Gastrointestinal (Abdomen): Inspection/Auscultation: abdomen normal to inspection; abdomen not distended Musculoskeletal: Head/Neck/Chest: normocephalic Neurologic: moves all extremities and awake Psychiatric: Orientation: alert and oriented x 3 Genitourinary: Velasquez intact, patent, and draining light red/maroon urine, no clots noted within tubing. Results & Data ([facility]) Vital Signs (Past 12 Hours) Vital Signs Temp Pulse Pulse Resp BP Pulse Ox 06/28/21 08:00 36.5 C 118 H 16 119/73 95 06/28/21 03:27 36.9 C 123 H 17 124/67 93 06/27/21 23:44 37.0 C 128 H 17 113/62 92 06/27/21 23:00 128 H PG Care Time/CCT Total # of Minutes Spent Total Time Spent with Patient: Total time spent is greater than 50% in coordination of care (as documented) at patient's floor/unit and/or counseling patient: Coding Level of Care Code 73800 Subseq Hosp Care Lvl 2 Diagnoses Osseous metastasis C79.51 Bladder mass N32.89
--- NOTE | 2021-06-28 11:44 | Palliative Care Progress Note ---
Date of Service June 28, 2021 Assessment & Plan (1) Shoulder pain, bilateral: Plan: Relief with lidocaine patches and oxycodone. Increased frequency of oxycodone to every four hours to avoid use of tramadol which is less effective and very constipating. Continue gabapentin with goal of less opioid need when stable, (2) Hip pain, bilateral: Plan: Today he describes pain as in his left knee and right thigh. He already has two lidocaine patches. Would not add additional lidocaine. Trial diclofenac gel as adjuvant. (3) Palliative care encounter: Plan: I talked further with Kojo about his goals today. His hope is that he would be well enough to return to the shop to live. He does recognize need for placement and rehab at this time. We discussed that with his advanced cancer, treatment may be more palliative than curative. He understands this. With that in mind, we readdressed his code status. His expectation when he indicated full code was that he would get more time to be up and around and doing things. We discussed realistically, this is not likely to happen. He stated again today that when the big [facility]lie is ready for him, he did not see a point in resisting. However, he does not feel ready to change code status at this time. He tells me that he'll think about and know when the time is right. I assured him that we would continue treatment and support for him regardless of his code status. (4) Bladder cancer metastasized to bone: Admission and Anticipated Discharge Date Admission Date: June 21, 2021 Subjective Able to ambulate with walker. Complains of severe shoulder pain, 9/10, when pushing himself up in bed. Pain in right shoulder radiates down arm with numbness. He also continues to have burning, stabbing pain in his right inner thigh and left knee. He currently has lidoderm patches for his shoulders, prn oxycodone, about 3 times a day and gabapentin started yesterday. He reports that pain decreases to 5-6/10 after oxycodone which he considers to be a tolerable level. He did meet with Dr. Oliveira yesterday to discuss palliative pelvic radiation. Review of Systems Review of Systems: [place] Symptom Assessment Scale Pain 3/3 Dyspnea 0/3 Nausea 0/3 Fatigue 2/3 Drowsiness 0/3 LBM 06/28 Palliative Performance Score 40% Physical Exam Constitutional: no acute distress ENMT: Mouth: oral mucous membranes not dry Respiratory: normal respiratory effort and + cough (moist); no labored breathing Musculoskeletal: decreased rom upper extremities due to pain Skin: warm and dry Neurologic: awake; not confused Psychiatric: Orientation: oriented x 3 Genitourinary: mclaughlin with blood tinged urine Results & Data ([facility]) Vital Signs (Past 12 Hours) Vital Signs Temp Pulse Resp BP Pulse Ox 06/28/21 08:00 97.7 F 118 H 16 119/73 95 06/28/21 03:27 98.4 F 123 H 17 124/67 93 06/27/21 23:44 98.6 F 128 H 17 113/62 92 PG Care Time/CCT Total # of Minutes Spent Total Time Spent: 40 Total Time Spent with Patient: Total time spent is greater than 50% in coordination of care (as documented) at patient's floor/unit and/or counseling patient: symptom management, goals of care, code status, patient education and support Coding Level of Care Code 44720 Subseq Hosp Care Lvl 3 Diagnoses Shoulder pain, bilateral M25.511; M25.512 Hip pain, bilateral M25.551; M25.552 Palliative care encounter Z51.5 Bladder cancer metastasized to bone C67.9; C79.51
[2021-06-28] MEDS: METOPROLOL TARTRATE 25 MG TAB PO SCH ×2 (13:53→20:11)
[2021-06-28] MEDS: DICLOFENAC SOD 1% GEL 100 GM TUBE EXT SCH ×2 (13:53→20:11)
[2021-06-28] MEDS: GABAPENTIN 300 MG CAP PO SCH (20:11)
[2021-06-29] MEDS: oxyCODONE HCL IR 5 MG TAB (IMMEDIATE RELEASE) PO PRN ×4 (03:06→21:08)
[2021-06-29] MEDS: DICLOFENAC SOD 1% GEL 100 GM TUBE EXT SCH ×3 (03:07→21:06)
[2021-06-29 07:52] LABS: Hemoglobin 7.7 g/dL (14.0-18.0); Mean Corpuscular Hemoglobin 27.2 pg (25-34); Mean Corpuscular Hgb Conc 32.1 g/dL (32-36); Mean Corpuscular Volume 84.8 fL (80-100); Nucleated RBC % (auto) 1.5 %; RDW Coefficient of Variation 16.3 % (11.5-14.5); RDW Standard Deviation 50.3 fL (36.4-46.3); Red Blood Count 2.83 M/uL (4.7-6.1)
[2021-06-29 08:24] LABS: Mean Platelet Volume 9.5 fL (7.4-10.4); Platelet Count 64 K/uL (130-400); Platelet Estimate Decreased (Normal)
[2021-06-29 08:25] LABS: Calcium 7.8 mg/dl (8.5-10.1); Creatinine Clr Calc Pharmacy 118.3 ml/min; Est GFR (African American) 131.3 ml/min; Est GFR (Non-African American) 113.3 ml/min; Potassium 3.7 mmol/L (3.5-5.1)
[2021-06-29] MEDS: METOPROLOL TARTRATE 25 MG TAB PO SCH ×2 (08:27→21:07)
[2021-06-29] MEDS: LIDOCAINE 5% 1 PATCH TD SCH (08:28)
[2021-06-29] MEDS: DOCUSATE SODIUM/SENNA 50/8.6MG TAB PO SCH ×2 (08:28→21:08)
--- NOTE | 2021-06-29 10:53 | Palliative Care Progress Note ---
Date of Service June 29, 2021 Assessment & Plan (1) Shoulder pain, bilateral: Plan: He has been waiting until pain is severe to use opioid. He does not feel that pain is adequately controlled. He is on adjuvant lidoderm and diclofenac with gabapentin. Will convert oxycodone to extended release. We talked about steady state level in his system with no need to watch the clock or focus on prn dosing. (2) Hip pain, bilateral: Plan: As above (3) Tobacco consumption: Plan: Add nicotine patch (4) Constipation: Plan: Increase Senna S to bid, monitor (5) Palliative care encounter: Plan: He remains a full code per his wishes and feels that he will know when the time is right to change that. (6) Bladder cancer metastasized to bone: Admission and Anticipated Discharge Date Admission Date: June 21, 2021 Subjective Denies drowsiness with gabapentin. Sleeping better. Notes some relief with diclofenac. Used prn oxycodone x 3 in last 24 hours. He reports that this is effective but often waits until pain is severe before taking. He is asking for a cigarette. He tells me that he smokes about a half pack per day at home. Review of Systems Review of Systems: [place] Symptom Assessment Scale Pain 2/3 Dyspnea 0/3 Nausea 0/3 Fatigue 2/3 Anxiety 0/3 Drowsiness 0/3 LBM 06/28 smear Palliative Performance Score 40% Physical Exam Constitutional: no acute distress ENMT: Mouth: oral mucous membranes not dry Respiratory: normal respiratory effort; no labored breathing Musculoskeletal: Extremities: + muscle atrophy Neurologic: moves all extremities and awake; not confused Results & Data ([facility]) Vital Signs (Past 12 Hours) Vital Signs Temp Pulse Pulse Resp BP Pulse Ox 06/29/21 07:09 98.6 F 110 H 20 106/63 94 06/29/21 03:01 97.9 F 110 H 18 117/68 94 06/29/21 00:00 101 H 06/28/21 23:20 98.4 F 103 H 18 103/63 92 PG Care Time/CCT Total # of Minutes Spent Total Time Spent: 35 Total Time Spent with Patient: Total time spent is greater than 50% in coordination of care (as documented) at patient's floor/unit and/or counseling patient: symptom management, patient education and support, coordination of care Coding Level of Care Code 58282 Subseq Hosp Care Lvl 3 Diagnoses Shoulder pain, bilateral M25.511; M25.512 Hip pain, bilateral M25.551; M25.552 Constipation K59.00 Palliative care encounter Z51.5 Bladder cancer metastasized to bone C67.9; C79.51 Tobacco consumption Z72.0
[2021-06-29] MEDS ORDERED: ONDANSETRON 4 MG OD TAB PO SCH (12:00)
[2021-06-29] MEDS: oxyCODONE HCL 10 MG TABCR (OxyCONTIN) PO SCH ×2 (13:06→23:07)
[2021-06-29] MEDS: NICOTINE 14 MG/24 HR PATCH TD SCH (13:06)
--- NOTE | 2021-06-29 18:21 | Hospitalist Progress Note ---
Date of Service June 29, 2021 Assessment & Plan (1) Acute blood loss anemia: Plan: s/p 4 units pRBC so far this admission -repeat CBC tomorrow -no recurrent hematuria noted (2) Bladder mass: Plan: S/p Cystoscopy with Transurethral resection of bladder tumor on 06/24/21 Urine cytology from 06/23/21 and pathology showed high grade urothelial carcinoma Patient will follow up with onco outpatient (3) Osseous metastasis: Plan: CT ABD/pelvis shows Large infiltrative mass of the urinary bladder is suggestive of a primary malignancy which demonstrates transmural spread of disease into the right perivesicular tissues and right hemipelvis. There are small adjacent soft tissue nodules compatible with local metastasis. The mass results in obstruction of the distal ureters with moderate to severe bilateral hydroureteronephrosis. There is a delayed right-sided nephrogram. Extensive osseous metastatic disease with questioned anterior epidural disease at L5. No acute pathologic fracture identified. Prominent subcentimeter iliac chain and inguinal lymph nodes are suspicious for lymphatic metastasis. CT chest shows evidence of extensive/diffuse osteoblastic metastatic disease. There are mildly enlarged left supraclavicular, mediastinal, and right hilar lymph nodes. These are suspicious for metastatic disease. There is a tiny cluster of nodules in the left upper lobe measuring up to 4 mm. These are likely on an inflammatory basis. Attention at follow-up is recommended. Pain control, appreciate Palliative Care input for pain management One session XR therapy for pain control per rad onc (4) Lactic acidosis: Plan: Lactic acid 4.8 --> 1.3 Hypovolemia, underlying malignancy likely contributing (5) Thrombocytopenia: Plan: On admission, Platelets 83K likely due to underlying malignancy Platelet count remains stable (6) Hyponatremia: Plan: Na has been low since admission Serum osm 281 Uosm 621 Maulik 48 TSH normal Possibly SIADH Fluid restrict and monitor Na remains stable at 130 (7) Cardiomegaly: Plan: Noted on CT chest Echo report reviewed.No obvious pathology Patient has persistent sinus tachycardia Start low dose metoprolol-will increase (8) DVT prophylaxis: Plan: SCDs due to hematuria, anemia Care mgt on board for dc planning/complex needs as patient reports he has no family, lives at his workplace as boss allows him to stay there in exchange for helping out Palliative eval appreciated CM working on placement Admission and Anticipated Discharge Date Admission Date: June 21, 2021 Subjective Patient reports pain is uncontrolled Physical Exam Physical Exam: disheveled, no acute distress, non toxic appearing Respiratory: breathing comfortably on room air, no wheezing/rhonchi/rales Cardiovascular: regular rate and rhythm, no murmurs/rubs/gallops Gastrointestinal (Abdomen): soft, non tender, non distended Musculoskeletal: no edema Neurologic: awake, alert Genitourinary: mclaughlin is draining dark urine Results & Data Results & Data ([facility]) Vital Signs (Past 12 Hours) Vital Signs Temp Pulse Resp BP Pulse Ox 06/29/21 15:39 37.3 C 128 H 19 115/71 93 06/29/21 12:05 36.9 C 115 H 18 111/68 94 06/29/21 07:09 37.0 C 110 H 20 106/63 94 Laboratory Results Short CBC 06/29/21 Range/Units 07:28 WBC 7.00 (4.8-10.8) K/uL Hgb 7.7 L (14.0-18.0) g/dL Hct 24.0 L (42-52) % Plt Count 64 L (130-400) K/uL BMP 06/29/21 07:28 Sodium 130 L Potassium 3.7 Chloride 96 L Carbon Dioxide 25 BUN 27 H Creatinine 0.54 L Glucose 118 H Calcium 7.8 L Medications Administered Current Inpatient Medications Acetaminophen (Acetaminophen 325 Mg Tab) 650 mg PO Q4H PRN PRN Reason: Pain or Fever Stop: 07/21/21 21:18 Last Admin: 06/26/21 08:28 Dose: 650 mg Documented by: Diclofenac Sodium (Diclofenac Sod 1% Gel 100 Gm Tube) 4 gm EXT Q8H TONG Stop: 07/28/21 11:44 Last Admin: 06/29/21 13:06 Dose: 4 gm Documented by: Gabapentin (Gabapentin 300 Mg Cap) 300 mg PO HS TONG Stop: 07/27/21 20:59 Last Admin: 06/28/21 20:11 Dose: 300 mg Documented by: Guaifenesin (Guaifenesin Sugar Free 200 Mg/10 Ml Udc) 200 mg PO Q6H PRN PRN Reason: Cough Stop: 07/28/21 10:05 Lidocaine (Lidocaine 5% 1 Patch) 1 patch TD QAM TONG Stop: 07/23/21 11:59 Last Admin: 06/29/21 08:28 Dose: 1 patch Documented by: Metoprolol Tartrate (Metoprolol Tartrate 25 Mg Tab) 12.5 mg PO BID [facility] Stop: 07/28/21 10:29 Last Admin: 06/29/21 08:27 Dose: 12.5 mg Documented by: Miscellaneous (Remove Lidoderm Patch) 1 ea N/A DAILY@2100 [facility] Stop: 07/23/21 20:59 Last Admin: 06/28/21 20:13 Dose: 1 ea Documented by: Maude (Remove Nicoderm Patch) 1 ea N/A DAILY@0859 [facility] Stop: 07/30/21 08:58 Nicotine (Nicotine 14 Mg/24 Hr Patch) 14 mg TD QAM [facility] Stop: 07/29/21 10:59 Last Admin: 06/29/21 13:06 Dose: Not Given Documented by: Ondansetron HCl (Ondansetron 4 Mg Od Tab) 8 mg PO TODAY@1200 [facility] Stop: 06/29/21 19:00 Last Admin: 06/29/21 13:06 Dose: 8 mg Documented by: Oxycodone HCl (Oxycodone Hcl Ir 5 Mg Tab (Immediate Release)) 5 mg PO Q4H PRN PRN Reason: Severe Pain Stop: 07/10/21 08:10 Last Admin: 06/29/21 15:54 Dose: 5 mg Documented by: Oxycodone HCl (Oxycodone Hcl 10 Mg Tabcr (Oxycontin)) 10 mg PO Q12H [facility] Stop: 07/13/21 10:59 Last Admin: 06/29/21 13:06 Dose: 10 mg Documented by: Polyethylene Glycol (Polyethylene (Miralax) 17 Gm Pack) 17 gm PO DAILY PRN PRN Reason: Constipation Stop: 07/26/21 08:10 Senna/Docusate Sodium (Docusate Sodium/Senna 50/8.6mg Tab) 1 tab PO BID [facility] Stop: 07/29/21 20:59
[2021-06-29] MEDS: GABAPENTIN 300 MG CAP PO SCH (21:07)
[2021-06-30] MEDS: DICLOFENAC SOD 1% GEL 100 GM TUBE EXT SCH ×3 (04:28→20:34)
[2021-06-30 06:19] LABS: Hemoglobin 8.1 g/dL (14.0-18.0); Mean Corpuscular Hemoglobin 27.6 pg (25-34); Mean Corpuscular Hgb Conc 32.4 g/dL (32-36); Nucleated RBC # (auto) 0.09 K/uL (0-0); Nucleated RBC % (auto) 1.2 %; RDW Coefficient of Variation 16.4 % (11.5-14.5); Red Blood Count 2.94 M/uL (4.7-6.1); White Blood Count 7.42 K/uL (4.8-10.8)
[2021-06-30 06:20] LABS: Mean Platelet Volume 9.6 fL (7.4-10.4); Platelet Count 66 K/uL (130-400)
[2021-06-30 06:46] LABS: Creatinine Clr Calc Pharmacy 124.8 ml/min; Est GFR (African American) 134.5 ml/min; Potassium 4.3 mmol/L (3.5-5.1)
[2021-06-30] MEDS: DOCUSATE SODIUM/SENNA 50/8.6MG TAB PO SCH ×2 (08:00→20:34)
[2021-06-30] MEDS: NICOTINE 14 MG/24 HR PATCH TD SCH (08:00)
[2021-06-30] MEDS: METOPROLOL TARTRATE 25 MG TAB PO SCH ×2 (08:01→20:34)
[2021-06-30] MEDS: LIDOCAINE 5% 1 PATCH TD SCH (08:01)
[2021-06-30] MEDS ORDERED: OPTIRAY 320 125ml IV ONE (10:00)
--- NOTE | 2021-06-30 10:29 | CT Scan Report ---
CT angio chest PE protocol CLINICAL HISTORY: Evaluate for Pulmonary Emboli TECHNIQUE: Multidetector row helical CT of the chest was performed with angiographic protocol. Petersen l and sagittal reformations were obtained. Coronal and sagittal MIPS were obtained from the axial ana a set and were submitted for review. Automated dose lowering techniques and/or adjustment according to patient size were utilized for this exam. Comparison: Comparison is made to CT chest 06/21/2021 FINDINGS: Lungs and pleura: Small bilateral pleural effusions are seen with underlying atelectasis. Biapical sc arring is seen. Bronchial wall thickening is seen and there is tree in bud nodularity in the left low er lobe. There is a 2 mm nodule in the left apex (series 4 image 243). Heart and pericardium: Heart size is normal. No pericardial effusion. Vessels: Moderate atherosclerotic changes in the aorta and coronary arteries. Evaluation for pulmonar y embolus is limited due to suboptimal contrast timing, however no central or lobar embolus is seen. Mediastinum and carin: Subcentimeter lymph nodes are seen. These are minimally decreased from prior ex am, for example 12 mm right lower paratracheal lymph node now measures 9 mm. Chest wall and lower neck: Unremarkable. Previously noted prominent lymph nodes are less evident on t annita's exam. Abdomen: Unremarkable. Bones: Extensive bony lesions are seen. Previously noted pathological fractures are again seen. IMPRESSION: 1. Limited exam without evidence of central or lobar embolus. 2. Extensive blastic metastatic disease. 3. Bilateral pleural effusions, increased from prior exam. 4. Tree in bud nodularity in the left lower lobe may represent infectious/inflammatory process. 5. Interval decrease in size in the cervical and mediastinal nodes. ACT 112: Negative or not required by law. Electronically signed by: Jeronimo Howard M.D. 06/30/2021 10:27 AM
[2021-06-30] MEDS: oxyCODONE HCL 10 MG TABCR (OxyCONTIN) PO SCH ×2 (10:58→22:54)
--- NOTE | 2021-06-30 13:42 | Palliative Care Progress Note ---
Date of Service June 30, 2021 Assessment & Plan (1) Hip pain, bilateral: Plan: Improved on oxycodone SR with adjuvant lidocaine, gabapentin and diclofenac. (2) Shoulder pain, bilateral: Plan: As above (3) Constipation: Plan: On BID Senna S (4) Palliative care encounter: Plan: Kojo is focused on getting stronger so that he can get cancer treatment. "I want to keep living". When I asked him what living meant to him he said "I don't know but I don't want to ". He has said that his friend Naveed Carpenter would be his surrogate decision maker if he were unable to make decisions for himself. I asked him if Naveed was aware of that and how he was doing. He told me that he had not talked to Naveed. With Kojo's permission, I spoke with Naveed on the phone and updated him on Kojo's condition as well as the idea of him being Kojo's surrogate decision maker. Naveed was initially reluctant and stated that he would like to think about it. He asked me about prognosis which unfortunately is poor. Naveed has had family members who of cancer and asked if Kojo should have hospice. At this time, Kojo's preference is for full code, full treatment. Naveed is currently out of town and will return over the weekend. He is planning to visit Kojo on Sunday. He is agreeable to meeting to discuss this further at that time. (5) Bladder cancer metastasized to bone: Admission and Anticipated Discharge Date Admission Date: June 21, 2021 Subjective Sitting in chair at bedside. Requires assistance to lift leg off of stool and put foot on floor. Reports that pain control is better. Used oxycodone IR x 2 for prn dosing in last 24 hours. CTA done for persistent sinus tachycardia. Bilateral pleural effusions noted. Negative for PE. Review of Systems Review of Systems: [place] Symptom Assessment Scale Pain 1/3 Dyspnea 0/3 Fatigue 2/3 Nausea 0/3 Anxiety 0/3 Drowsiness 0/3 Palliative Performance Score 40% LBM 06/29 Physical Exam Constitutional: + ill appearing ENMT: Mouth: oral mucous membranes not dry Respiratory: + uses accessory muscles Musculoskeletal: Extremities: + muscle atrophy Skin: warm and dry Neurologic: awake; not confused Results & Data ([facility]) Vital Signs (Past 12 Hours) Vital Signs Temp Pulse Pulse Resp BP Pulse Ox 06/30/21 11:31 98.2 F 121 H 19 101/68 95 06/30/21 07:58 98.2 F 130 H 20 112/68 91 06/30/21 02:54 98.2 F 108 H 18 106/66 94 PG Care Time/CCT Total # of Minutes Spent Total Time Spent: 40 Total Time Spent with Patient: Total time spent is greater than 50% in coordination of care (as documented) at patient's floor/unit and/or counseling patient: goals of care, symptom management, surrogate decision maker Coding Level of Care Code 99342 Subseq Hosp Care Lvl 3 Diagnoses Hip pain, bilateral M25.551; M25.552 Shoulder pain, bilateral M25.511; M25.512 Constipation K59.00 Palliative care encounter Z51.5 Bladder cancer metastasized to bone C67.9; C79.51
[2021-06-30] MEDS: oxyCODONE HCL IR 5 MG TAB (IMMEDIATE RELEASE) PO PRN (18:41)
--- NOTE | 2021-06-30 19:07 | Hospitalist Progress Note ---
Date of Service June 30, 2021 Assessment & Plan (1) Acute blood loss anemia: Plan: s/p 4 units pRBC so far this admission -H/H remains stable -Mclaughlin with pink tinged urine (2) Bladder mass: Plan: S/p Cystoscopy with Transurethral resection of bladder tumor on 06/24/21 Urine cytology from 06/23/21 and pathology showed high grade urothelial carcinoma Patient will follow up with onco outpatient (3) Osseous metastasis: Plan: CT ABD/pelvis shows Large infiltrative mass of the urinary bladder is suggestive of a primary malignancy which demonstrates transmural spread of disease into the right perivesicular tissues and right hemipelvis. There are small adjacent soft tissue nodules compatible with local metastasis. The mass results in obstruction of the distal ureters with moderate to severe bilateral hydroureteronephrosis. There is a delayed right-sided nephrogram. Extensive osseous metastatic disease with questioned anterior epidural disease at L5. No acute pathologic fracture identified. Prominent subcentimeter iliac chain and inguinal lymph nodes are suspicious for lymphatic metastasis. CT chest shows evidence of extensive/diffuse osteoblastic metastatic disease. There are mildly enlarged left supraclavicular, mediastinal, and right hilar lymph nodes. These are suspicious for metastatic disease. There is a tiny cluster of nodules in the left upper lobe measuring up to 4 mm. These are likely on an inflammatory basis. Attention at follow-up is recommended. Pain control, appreciate Palliative Care input for pain management One session XR therapy for pain control per rad onc (4) Lactic acidosis: Plan: Lactic acid 4.8 --> 1.3 Hypovolemia, underlying malignancy likely contributing (5) Thrombocytopenia: Plan: On admission, Platelets 83K likely due to underlying malignancy Platelet count remains stable (6) Hyponatremia: Plan: Na has been low since admission Serum osm 281 Uosm 621 Maulik 48 TSH normal Possibly SIADH Fluid restrict and monitor Na remains stable at 130 (7) Cardiomegaly: Plan: Noted on CT chest Echo report reviewed.No obvious pathology Patient has persistent sinus tachycardia. CTA chest today negative for PE but shows pleural effusion. Lasix 40mg PO daily started continue metoprolol 25mg BID (8) DVT prophylaxis: Plan: SCDs due to hematuria, anemia, thrombocytopenia Care mgt on board for dc planning/complex needs as patient reports he has no family, lives at his workplace as boss allows him to stay there in exchange for helping out Palliative eval appreciated CM working on placement Admission and Anticipated Discharge Date Admission Date: June 21, 2021 Subjective Yesterday went for radiation treatment. Pain today is slightly better Physical Exam Physical Exam: appears thin, cachetic, no acute distress Respiratory: breathing comfortably on room air, no wheezing/rhonchi/rales Cardiovascular: mildly tachycardic, no murmurs/rubs/gallops Gastrointestinal (Abdomen): soft, non tender Musculoskeletal: no edema Genitourinary: mclaughlin in place, draining pink tinged urinr Results & Data Results & Data ([facility]) Vital Signs (Past 12 Hours) Vital Signs Temp Pulse Resp BP Pulse Ox 06/30/21 15:31 36.7 C 101 H 18 104/65 90 06/30/21 11:31 36.8 C 121 H 19 101/68 95 06/30/21 07:58 36.8 C 130 H 20 112/68 91 Laboratory Results Short CBC 06/30/21 Range/Units 05:50 WBC 7.42 (4.8-10.8) K/uL Hgb 8.1 L (14.0-18.0) g/dL Hct 25.0 L (42-52) % Plt Count 66 L (130-400) K/uL BMP 06/30/21 05:50 Sodium 133 L Potassium 4.3 Chloride 97 L Carbon Dioxide 26 BUN 26 H Creatinine 0.51 L Glucose 121 H Calcium 8.0 L Medications Administered Current Inpatient Medications Acetaminophen (Acetaminophen 325 Mg Tab) 650 mg PO Q4H PRN PRN Reason: Pain or Fever Stop: 07/21/21 21:18 Last Admin: 06/26/21 08:28 Dose: 650 mg Documented by: Diclofenac Sodium (Diclofenac Sod 1% Gel 100 Gm Tube) 4 gm EXT Q8H TONG Stop: 07/28/21 11:44 Last Admin: 06/30/21 10:58 Dose: 4 gm Documented by: Furosemide (Furosemide 40 Mg Tab) 40 mg PO QAM TONG Stop: 07/31/21 08:59 Gabapentin (Gabapentin 300 Mg Cap) 300 mg PO HS TONG Stop: 07/27/21 20:59 Last Admin: 06/29/21 21:07 Dose: 300 mg Documented by: Guaifenesin (Guaifenesin Sugar Free 200 Mg/10 Ml Udc) 200 mg PO Q6H PRN PRN Reason: Cough Stop: 07/28/21 10:05 Lidocaine (Lidocaine 5% 1 Patch) 1 patch TD QAM [facility] Stop: 07/23/21 11:59 Last Admin: 06/30/21 08:01 Dose: 1 patch Documented by: Metoprolol Tartrate (Metoprolol Tartrate 25 Mg Tab) 25 mg PO BID [facility] Stop: 07/29/21 20:59 Last Admin: 06/30/21 08:01 Dose: 25 mg Documented by: Mismargieaneous (Remove Lidoderm Patch) 1 ea N/A DAILY@2100 [facility] Stop: 07/23/21 20:59 Last Admin: 06/29/21 21:07 Dose: 1 ea Documented by: Maude (Remove Nicoderm Patch) 1 ea N/A DAILY@0859 [facility] Stop: 07/30/21 08:58 Last Admin: 06/30/21 08:00 Dose: Not Given Documented by: Nicotine (Nicotine 14 Mg/24 Hr Patch) 14 mg TD QAM [facility] Stop: 07/29/21 10:59 Last Admin: 06/30/21 08:00 Dose: 14 mg Documented by: Oxycodone HCl (Oxycodone Hcl Ir 5 Mg Tab (Immediate Release)) 5 mg PO Q4H PRN PRN Reason: Severe Pain Stop: 07/10/21 08:10 Last Admin: 06/30/21 18:41 Dose: 5 mg Documented by: Oxycodone HCl (Oxycodone Hcl 10 Mg Tabcr (Oxycontin)) 10 mg PO Q12H [facility] Stop: 07/13/21 10:59 Last Admin: 06/30/21 10:58 Dose: 10 mg Documented by: Polyethylene Glycol (Polyethylene (Miralax) 17 Gm Pack) 17 gm PO DAILY PRN PRN Reason: Constipation Stop: 07/26/21 08:10 Senna/Docusate Sodium (Docusate Sodium/Senna 50/8.6mg Tab) 1 tab PO BID [facility] Stop: 07/29/21 20:59 Last Admin: 06/30/21 08:00 Dose: Not Given Documented by:
[2021-06-30] MEDS: GABAPENTIN 300 MG CAP PO SCH (20:35)
[2021-07-01] MEDS: DICLOFENAC SOD 1% GEL 100 GM TUBE EXT SCH ×3 (03:45→20:41)
[2021-07-01] MEDS: DOCUSATE SODIUM/SENNA 50/8.6MG TAB PO SCH ×2 (08:45→20:43)
[2021-07-01] MEDS: METOPROLOL TARTRATE 25 MG TAB PO SCH ×3 (08:45→20:42)
[2021-07-01] MEDS: NICOTINE 14 MG/24 HR PATCH TD SCH (08:46)
[2021-07-01] MEDS: LIDOCAINE 5% 1 PATCH TD SCH (08:46)
[2021-07-01] MEDS ORDERED: FUROSEMIDE 40 MG TAB PO SCH (09:00)
--- NOTE | 2021-07-01 11:00 | Palliative Care Progress Note ---
Date of Service July 01, 2021 Assessment & Plan (1) Shoulder pain, bilateral: Plan: Reasonably controlled on current regimen. Monitor (2) Hip pain, bilateral: Plan: As above. (3) Palliative care encounter: Plan: I talked with Kojo about my conversation with his friend Naveed yesterday. Naveed is hoping to visit on Sunday. 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 Discussed that he is likely to be in rehab for some time and would not be a burden to them. Naveed is clearly not able to care for Kojo. Case management working on placement. (4) Bladder cancer metastasized to bone: Admission and Anticipated Discharge Date Admission Date: June 21, 2021 Subjective Used only one prn oxycodone in last 24 hours. No other complaints. Review of Systems Review of Systems: [place] Symptom Assessment Score Pain 1/3 Dyspnea 0/3 Fatigue 2/3 Nausea 0/3 Anorexia 2/3 Drowsiness 0/3 Anxiety 0/3 LBM 06/29 Palliative Performance Score 40% Physical Exam Constitutional: + thin and + frail appearing Respiratory: + uses accessory muscles Cardiovascular: Rate/Rhythm: + tachycardic Gastrointestinal (Abdomen): Inspection/Auscultation: abdomen not distended Musculoskeletal: Extremities: + muscle atrophy Skin: warm and dry Neurologic: awake; not confused Results & Data ([facility]) Vital Signs (Past 12 Hours) Vital Signs Temp Pulse Pulse Resp BP Pulse Ox 07/01/21 07:51 97.7 F 110 H 16 137/72 93 07/01/21 04:06 97.9 F 118 H 20 113/67 93 06/30/21 22:59 121 H PG Care Time/CCT Total # of Minutes Spent Total Time Spent with Patient: Total time spent is greater than 50% in coordination of care (as documented) at patient's floor/unit and/or counseling patient: Coding Level of Care Code 32105 Subseq Hosp Care Lvl 2 Diagnoses Shoulder pain, bilateral M25.511; M25.512 Hip pain, bilateral M25.551; M25.552 Palliative care encounter Z51.5 Bladder cancer metastasized to bone C67.9; C79.51
[2021-07-01] MEDS: oxyCODONE HCL 10 MG TABCR (OxyCONTIN) PO SCH ×2 (11:43→23:43)
--- NOTE | 2021-07-01 18:59 | Hospitalist Progress Note ---
Date of Service July 01, 2021 Assessment & Plan (1) Acute blood loss anemia: Plan: s/p 4 units pRBC so far this admission -H/H remains stable -Mclaughlin with pink tinged urine -will repeat CBC tomorrow (2) Bladder mass: Plan: S/p Cystoscopy with Transurethral resection of bladder tumor on 06/24/21 Urine cytology from 06/23/21 and pathology showed high grade urothelial carcinoma Patient will follow up with onco outpatient (3) Osseous metastasis: Plan: CT ABD/pelvis shows Large infiltrative mass of the urinary bladder is suggestive of a primary malignancy which demonstrates transmural spread of disease into the right perivesicular tissues and right hemipelvis. There are small adjacent soft tissue nodules compatible with local metastasis. The mass results in obstruction of the distal ureters with moderate to severe bilateral hydroureteronephrosis. There is a delayed right-sided nephrogram. Extensive osseous metastatic disease with questioned anterior epidural disease at L5. No acute pathologic fracture identified. Prominent subcentimeter iliac chain and inguinal lymph nodes are suspicious for lymphatic metastasis. CT chest shows evidence of extensive/diffuse osteoblastic metastatic disease. There are mildly enlarged left supraclavicular, mediastinal, and right hilar lymph nodes. These are suspicious for metastatic disease. There is a tiny cluster of nodules in the left upper lobe measuring up to 4 mm. These are likely on an inflammatory basis. Attention at follow-up is recommended. Pain control, appreciate Palliative Care input for pain management s/p one XR therapy 06/29 (4) Lactic acidosis: Plan: Lactic acid 4.8 --> 1.3 Hypovolemia, underlying malignancy likely contributing (5) Thrombocytopenia: Plan: On admission, Platelets 83K likely due to underlying malignancy Platelet count remains stable (6) Hyponatremia: Plan: Na has been low since admission Serum osm 281 Uosm 621 Maulik 48 TSH normal Possibly SIADH Fluid restrict and monitor Na remains stable at 130 (7) Cardiomegaly: Plan: Noted on CT chest Echo report reviewed.No obvious pathology Patient has persistent sinus tachycardia. CTA chest today negative for PE but shows pleural effusion. Lasix 40mg PO daily started continue metoprolol 25mg BID (8) DVT prophylaxis: Plan: SCDs due to hematuria, anemia, thrombocytopenia Care mgt on board for dc planning/complex needs as patient reports he has no family, lives at his workplace as boss allows him to stay there in exchange for helping out Palliative eval appreciated CM working on placement Admission and Anticipated Discharge Date Admission Date: June 21, 2021 Subjective Reports pain is a little better today Mclaughlin draining blood tinged urine Denies fever/chills/chest pain/shortness of breath. "I feel fine" Physical Exam Physical Exam: sitting in chair, appears chronically ill, mildly sweaty Respiratory: breathing comfortably on room air, no wheezing/rhonchi/rales Cardiovascular: tachycardic but regular, no murmurs Gastrointestinal (Abdomen): soft, non tender Musculoskeletal: no edema Neurologic: awake, alert, spontaneously moving extremities Genitourinary: mclaughlin is draining pink urine Results & Data Results & Data ([facility]) Vital Signs (Past 12 Hours) Vital Signs Temp Pulse Resp BP Pulse Ox 07/01/21 15:16 36.9 C 133 H 16 108/71 93 07/01/21 11:39 36.5 C 108 H 15 107/69 94 07/01/21 07:51 36.5 C 110 H 16 137/72 93 Medications Administered Current Inpatient Medications Acetaminophen (Acetaminophen 325 Mg Tab) 650 mg PO Q4H PRN PRN Reason: Pain or Fever Stop: 07/21/21 21:18 Last Admin: 06/26/21 08:28 Dose: 650 mg Documented by: Diclofenac Sodium (Diclofenac Sod 1% Gel 100 Gm Tube) 4 gm EXT Q8H TONG Stop: 07/28/21 11:44 Last Admin: 07/01/21 11:44 Dose: 4 gm Documented by: Furosemide (Furosemide 40 Mg Tab) 40 mg PO QAM TONG Stop: 07/31/21 08:59 Last Admin: 07/01/21 08:45 Dose: 40 mg Documented by: Gabapentin (Gabapentin 300 Mg Cap) 300 mg PO HS TONG Stop: 07/27/21 20:59 Last Admin: 06/30/21 20:35 Dose: 300 mg Documented by: Guaifenesin (Guaifenesin Sugar Free 200 Mg/10 Ml Udc) 200 mg PO Q6H PRN PRN Reason: Cough Stop: 07/28/21 10:05 Lidocaine (Lidocaine 5% 1 Patch) 1 patch TD QAM TONG Stop: 07/23/21 11:59 Last Admin: 07/01/21 08:46 Dose: 1 patch Documented by: Metoprolol Tartrate (Metoprolol Tartrate 25 Mg Tab) 25 mg PO TID [facility] Stop: 07/31/21 15:59 Last Admin: 07/01/21 15:58 Dose: 25 mg Documented by: Miscellaneous (Remove Lidoderm Patch) 1 ea N/A DAILY@2100 [facility] Stop: 07/23/21 20:59 Last Admin: 06/30/21 20:35 Dose: 1 ea Documented by: Miscellaneous (Remove Nicoderm Patch) 1 ea N/A DAILY@0859 [facility] Stop: 07/30/21 08:58 Last Admin: 07/01/21 08:51 Dose: 1 ea Documented by: Nicotine (Nicotine 14 Mg/24 Hr Patch) 14 mg TD QAM [facility] Stop: 07/29/21 10:59 Last Admin: 07/01/21 08:46 Dose: 14 mg Documented by: Oxycodone HCl (Oxycodone Hcl Ir 5 Mg Tab (Immediate Release)) 5 mg PO Q4H PRN PRN Reason: Severe Pain Stop: 07/10/21 08:10 Last Admin: 06/30/21 18:41 Dose: 5 mg Documented by: Oxycodone HCl (Oxycodone Hcl 10 Mg Tabcr (Oxycontin)) 10 mg PO Q12H [facility] Stop: 07/13/21 10:59 Last Admin: 07/01/21 11:43 Dose: 10 mg Documented by: Polyethylene Glycol (Polyethylene (Miralax) 17 Gm Pack) 17 gm PO DAILY PRN PRN Reason: Constipation Stop: 07/26/21 08:10 Senna/Docusate Sodium (Docusate Sodium/Senna 50/8.6mg Tab) 1 tab PO BID [facility] Stop: 07/29/21 20:59 Last Admin: 07/01/21 08:45 Dose: 1 tab Documented by:
[2021-07-01] MEDS: GABAPENTIN 300 MG CAP PO SCH (20:42)
[2021-07-01] MEDS ORDERED: SODIUM CHLORIDE 0.9% 500 ML IV ONE (22:46)
[2021-07-01 23:05] LABS: Hematocrit (blood only) 23.2 % (42-52); Hemoglobin 7.3 g/dL (14.0-18.0); Mean Corpuscular Hemoglobin 27.1 pg (25-34); Mean Corpuscular Hgb Conc 31.5 g/dL (32-36); Mean Corpuscular Volume 86.2 fL (80-100); Nucleated RBC # (auto) 0.14 K/uL (0-0); Nucleated RBC % (auto) 1.6 %; RDW Coefficient of Variation 16.9 % (11.5-14.5); RDW Standard Deviation 53.3 fL (36.4-46.3); Red Blood Count 2.69 M/uL (4.7-6.1); White Blood Count 8.68 K/uL (4.8-10.8)
[2021-07-01] MEDS ORDERED: SODIUM CHLORIDE 0.9% 250 ML IV PRN (23:10)
[2021-07-01 23:23] LABS: Mean Platelet Volume 9.8 fL (7.4-10.4); Platelet Count 59 K/uL (130-400)
[2021-07-01 23:27] LABS: BUN Creatinine Ratio 48.1 (10-20); Creatinine Clr Calc Pharmacy 81.3 ml/min; Est GFR (African American) 112.3 ml/min; Est GFR (Non-African American) 96.9 ml/min; Magnesium 2.1 mg/dl (1.7-2.4); Potassium 4.5 mmol/L (3.5-5.1)
[2021-07-01 23:38] LABS: Basophils # (auto) 0.02 K/uL (0-0.2); Basophils % (auto) 0.2 %; Dohle Bodies Occasional; Eosinophils # (auto) 0.01 K/uL (0-0.5); Eosinophils % (auto) 0.1 %; Immature Granulocytes % (auto) 3.5 %; Lymphocytes # (auto) 0.59 K/uL (1.2-3.4); Lymphocytes % (auto) 6.8 %; Monocytes # (auto) 0.26 K/uL (0.11-0.59); Neutrophils % (auto) 86.4 %; RBC Morphology Unremarkable
[2021-07-02] MEDS: LACTULOSE SYRUP 30 GM/45 ML UDP PO ONE ×2 (03:18→03:40)
[2021-07-02] MEDS: DOCUSATE SODIUM/SENNA 50/8.6MG TAB PO SCH ×4 (03:18→20:30)
[2021-07-02] MEDS: DICLOFENAC SOD 1% GEL 100 GM TUBE EXT SCH ×3 (03:19→20:31)
[2021-07-02] MEDS ORDERED: POLYETHYLENE (MIRALAX) 17 GM PACK PO ONE (03:30)
[2021-07-02] MEDS: METOPROLOL TARTRATE 25 MG TAB PO SCH ×3 (04:26→20:31)
[2021-07-02 04:55] LABS: Appearance Urine Cloudy (Clear); Bilirubin Urine 1+ (Negative); Blood Urine 3+ (Negative); Color Urine Red; Glucose Urine UA Negative (Negative); Ketones Urine Trace (Negative); Leukocyte Esterase Urine Trace (Negative); Nitrite Urine Negative (Negative); Protein Urine 3+ (Negative); Specific Gravity Urine 1.025 (1.000-1.030); Urobilinogen Urine Positive (Negative)
[2021-07-02] MEDS ORDERED: bisacodyL 10 MG SUPP PR STA (04:59)
[2021-07-02 05:00] LABS: RBC Urine >30 /hpf (0-4)
[2021-07-02] MEDS ORDERED: METHYLNALTREXONE BROMIDE 12 MG/0.6 ML VIAL SQ STA (05:00)
[2021-07-02 05:01] LABS: Bacteria Urine 1+ (Negative); Epithelial Cell Urine 20-30 /lpf (0-5)
[2021-07-02] MEDS ORDERED: KETOROLAC TROMETHAMINE 15 MG/ML VIAL IV ONE (06:00)
--- NOTE | 2021-07-02 06:00 | Communication Note ---
Date of Service: July 02, 2021 Overnight developments 07/01, 1040PM Patient diaphoretic as per RN. Heart rate 115. Urine lobo red. Patient not in visible distress as per RN. Chronic back pain from metastatic cancer as per RN. Hemoglobin 7.3 from 8.1 in a.m. A/P Acute on chronic anemia Ongoing hematuria from bladder tumor status post surgery Rule out UTI Transfuse PRBC to maintain hemoglobin greater than 8 Check UA 07/02 250AM Patient abdomen firm as per RN. Patient denies pain as per RN. Last BM was June 28. AP Narcotic induced constipation Augment bowel regimen 326 AM Patient aspirating on water on MiraLAX intake resulting in coughing fit as per RN. RN unable to administer oral laxatives AP Aspiration risk Aspiration precautions Swallow eval in a.m. Dulcolax per rectum and methylnaltrexone for narcotic induced constipation given inability to take oral meds for now 555 AM Patient still diaphoretic without distress and watching TV as per RN. Abdominal pain 9/10. U/A trace WBC esterase AP Abdominal pain Multifactorial : Complicated UTI Narcotic induced constipation Urine CS, Zosyn Continue bowel regimen N.p.o. for now CT abdomen pelvis
[2021-07-02] MEDS ORDERED: OPTIRAY 320 100ml IV ONE (06:23)
[2021-07-02] MEDS ORDERED: PIPERACILL/TAZOBAC CONSULT ACTIVE PRN (06:29)
[2021-07-02] MEDS ORDERED: PIPERACILLIN/TAZOBACTAM 4.5 GM in DEXTROSE 5% 100 ML IV ONE (06:29)
[2021-07-02] MEDS ORDERED: ALBUMIN 25% 12.5 GM/50 ML VIAL IV ONE (06:30)
[2021-07-02] MEDS ORDERED: PIPERACILLIN/TAZOBACTAM 3.375 GM in DEXTROSE 5% 100 ML IV ONE (06:45)
--- NOTE | 2021-07-02 08:25 | XRay Report ---
XR chest 1V portable CLINICAL HISTORY: Cough. COMPARISON STUDY: 06/21/2021 TECHNIQUE: 1 view of the chest FINDINGS: Single frontal view of the chest demonstrates the cardiomediastinal silhouette to be within normal li mits. Compared to the previous examination, there is now a decreased inspiratory effort with elevatio n of the hemidiaphragms and crowding the bronchovascular markings bilaterally. Previously suspected l eft midlung opacity is not seen on the current study and most likely represented the inferior margin of the scapula. Similar finding is now seen on the right due to change in positioning of the arms for this study. The lungs are otherwise clear of alveolar opacities. There is no evidence for pleural effusion. Ther e is no evidence for vascular congestion. There is again evidence for bony sclerosis suspicious for b lastic metastases. IMPRESSION: 1. Decreased inspiration with no evidence for acute chest disease. 2. No evidence for pulmonary nodule. 3. There is again bony sclerosis suspicious for blastic metastases. Radionuclide bone scan could be o btained for further evaluation. ACT 112: Negative or not required by law. Electronically signed by: Zheng Barajas M.D. 07/02/2021 8:23 AM
[2021-07-02 08:31] LABS: Hematocrit (blood only) 25.7 % (42-52); Hemoglobin 8.1 g/dL (14.0-18.0); Mean Corpuscular Hemoglobin 26.9 pg (25-34); Mean Corpuscular Hgb Conc 31.5 g/dL (32-36); Mean Corpuscular Volume 85.4 fL (80-100); Nucleated RBC # (auto) 0.07 K/uL (0-0); RDW Coefficient of Variation 17.2 % (11.5-14.5); RDW Standard Deviation 53.2 fL (36.4-46.3); Red Blood Count 3.01 M/uL (4.7-6.1); White Blood Count 7.73 K/uL (4.8-10.8)
[2021-07-02 08:35] LABS: Mean Platelet Volume 9.5 fL (7.4-10.4); Platelet Count 50 K/uL (130-400)
[2021-07-02] MEDS: LIDOCAINE 5% 1 PATCH TD SCH (08:49)
[2021-07-02] MEDS: NICOTINE 14 MG/24 HR PATCH TD SCH (08:49)
[2021-07-02 08:58] LABS: Albumin Globulin Ratio 0.6 (0.9-2); Albumin Level 2.4 gm/dl (3.4-5.0); BUN Creatinine Ratio 50.6 (10-20); Bilirubin,Total 1.2 mg/dl (0.2-1.0); Calcium 7.9 mg/dl (8.5-10.1); Creatinine Clr Calc Pharmacy 83.1 ml/min; Est GFR (African American) 112.3 ml/min; Est GFR (Non-African American) 96.9 ml/min; Globulin 3.8 gm/dl (2.5-4.0); Magnesium 2.1 mg/dl (1.7-2.4); Potassium 4.1 mmol/L (3.5-5.1); Total Protein 6.2 gm/dl (6.0-8.3)
[2021-07-02 09:20] LABS: Basophils # (auto) 0.01 K/uL (0-0.2); Basophils % (auto) 0.1 %; Eosinophils # (auto) 0.02 K/uL (0-0.5); Eosinophils % (auto) 0.3 %; Immature Granulocytes # (auto) 0.48 K/uL (0.00-0.02); Immature Granulocytes % (auto) 6.2 %; Lymphocytes % (auto) 5.2 %; Monocytes % (auto) 2.6 %; Neutrophils # (auto) 6.62 K/uL (1.4-6.5); Neutrophils % (auto) 85.6 %
--- NOTE | 2021-07-02 09:20 | CT Scan Report ---
CT abd pelvis IV con only CLINICAL HISTORY: Diffuse abdominal pain COMPARISON STUDY: 06/21/2021 CT DOSE: 292.83 mGy.cm TECHNIQUE: Standard CT of the Abdomen and Pelvis was performed with IV contrast. A dose lowering khadijah hnique was utilized adhering to the principles of ALARA. Contrast Volume: Optiray 320, 94 ml. The patient did not receive oral contrast. FINDINGS: Lung base: Compared to the previous examination, there has been increase in small bilateral pleural e ffusions. There is now bibasilar atelectasis as well. Abdominal cavity: There is no evidence for abdominal mass, adenopathy or ascites. Liver: There is homogeneous attenuation of the liver parenchyma. There is no evidence for enhancing m ass lesion. Spleen: There is homogeneous attenuation of the splenic parenchyma. There is no enhancing mass lesion . Pancreas: There is homogeneous attenuation of the pancreatic parenchyma. There is no evidence for mas s lesion or peripancreatic fluid collection. Gall Bladder: The gallbladder is well distended with no evidence for intraluminal calculi, wall thick ening or pericholecystic edema. Adrenal glands: The adrenal glands are normal in size and attenuation. There is no evidence for enhan cing mass lesion. Kidneys: Compared to the previous examination, there has been interval resolution of left-sided hydro nephrosis. Marked right-sided hydronephrosis and hydroureter remain present. No gross renal calculus is seen. There is no evidence for enhancing mass. Bowel: There is small hiatal hernia. Compared to the previous examination, there is now gaseous diste ntion of the colon with no evidence for fecal impaction or obstruction. There are also a few air-fill ed loops of small bowel present. These findings are most characteristic of the presence of an ileus. There are no inflammatory changes present. There is no evidence for free air. Bladder: Marked thickening of the bladder wall is again seen with interval placement of a Velasquez jerome ter.. Paravesicular infiltration is again seen surrounding the bladder characteristic of local spread . There are also small lymph nodes again seen within the pelvis along the iliac chains bilaterally. : There is no evidence for pelvic mass or adenopathy. There is no evidence for pelvic ascites. Vasculature: There is no evidence for aneurysmal dilatation of the abdominal aorta. Osseous structures: Extensive blastic metastases are again seen throughout the pelvis, hips and spine . IMPRESSION: 1. Compared to previous examination, Velasquez catheter is present within the bladder with marked bladder wall thickening and perivesicular infiltration again seen. 2. There has been resolution of left-sided hydronephrosis with persistent right-sided hydronephrosis and hydroureter. 3. Interval development of large and small bowel ileus. 4. Increased small bilateral pleural effusions with interval development of bibasilar atelectasis. 5. Diffuse blastic metastases are again seen. ACT 112: Negative or not required by law. Electronically signed by: Zheng Barajas M.D. 07/02/2021 9:18 AM
[2021-07-02] MEDS: oxyCODONE HCL 10 MG TABCR (OxyCONTIN) PO SCH ×2 (11:20→23:09)
--- NOTE | 2021-07-02 11:25 | Hospitalist Progress Note ---
Date of Service July 02, 2021 Assessment & Plan (1) Acute blood loss anemia: Plan: s/p 4 units pRBC so far this admission -H/H remains stable -[facility] with pink tinged urine -Hb yesterday 7.3, patient received 1 unit of blood (2) Bladder mass: Plan: S/p Cystoscopy with Transurethral resection of bladder tumor on 06/24/21 Urine cytology from 06/23/21 and pathology showed high grade urothelial carcinoma Patient will follow up with onco outpatient (3) Osseous metastasis: Plan: CT ABD/pelvis shows Large infiltrative mass of the urinary bladder is suggestive of a primary malignancy which demonstrates transmural spread of disease into the right perivesicular tissues and right hemipelvis. There are small adjacent soft tissue nodules compatible with local metastasis. The mass results in obstruction of the distal ureters with moderate to severe bilateral hydroureteronephrosis. There is a delayed right-sided nephrogram. Extensive osseous metastatic disease with questioned anterior epidural disease at L5. No acute pathologic fracture identified. Prominent subcentimeter iliac chain and inguinal lymph nodes are suspicious for lymphatic metastasis. CT chest shows evidence of extensive/diffuse osteoblastic metastatic disease. There are mildly enlarged left supraclavicular, mediastinal, and right hilar lymph nodes. These are suspicious for metastatic disease. There is a tiny cluster of nodules in the left upper lobe measuring up to 4 mm. These are likely on an inflammatory basis. Attention at follow-up is recommended. Pain control, appreciate Palliative Care input for pain management s/p one XR therapy 06/29 (4) Lactic acidosis: Plan: Lactic acid 4.8 --> 1.3 Hypovolemia, underlying malignancy likely contributing (5) Thrombocytopenia: Plan: On admission, Platelets 83K likely due to underlying malignancy Platelet count remains stable (6) Hyponatremia: Plan: Na has been low since admission Serum osm 281 Uosm 621 Maulik 48 TSH normal Possibly SIADH Fluid restrict and monitor Na normalized (7) Cardiomegaly: Plan: Noted on CT chest Echo report reviewed.No obvious pathology Patient has persistent sinus tachycardia. CTA chest today negative for PE but shows pleural effusion. Lasix 40mg PO daily 06/30--now held. Repeat CXR today negative for pleural effusion continue metoprolol 25mg BID--> increased to TID yesterday with hold parameters (8) DVT prophylaxis: Plan: SCDs due to hematuria, anemia, thrombocytopenia Care mgt on board for dc planning/complex needs as patient reports he has no family, lives at his workplace as boss allows him to stay there in exchange for helping out Palliative eval appreciated CM working on placement Plan: Questionable UTI -overnight UA obtained from [facility] is unexpectedly abnormal. Zosyn started--> will discontinue and instead place on cefepime. PCT elevated -will follow up urine cultures Admission and Anticipated Discharge Date Admission Date: June 21, 2021 Subjective Yesterday was sweaty, continues to be tachycardic Patient reports non productive cough for past several days but otherwise no other complaints Denies fever/chills. "I'm always sweaty, they were making a big deal about it but I'm always this way" Physical Exam Physical Exam: Appears chronically ill, no acute distress, thin and cachetic Respiratory: diminished at bases, no wheezing/rhonchi noted, non productive cough Cardiovascular: tachycardic but regular, no murmurs/rubs/gallops Gastrointestinal (Abdomen): hypoactive bowel sounds, non tender Musculoskeletal: no edema Neurologic: awake, alert, spontaneously moving extremities Genitourinary: mclaughlin is draining pink/blood tinged urine, no clots noted Results & Data Results & Data ([facility]) Vital Signs (Past 12 Hours) Vital Signs Temp Pulse Pulse Resp BP BP Pulse Ox 07/02/21 11:11 36.4 C L 91 H 18 90/54 L 96 07/02/21 04:24 37.1 C 120 H 22 115/70 93 07/02/21 04:05 37.1 C 115 H 20 109/66 92 07/02/21 03:05 36.7 C 110 H 20 107/66 93 07/02/21 02:35 36.7 C 112 H 22 111/67 91 07/02/21 02:20 36.7 C 108 H 20 118/66 92 07/02/21 02:04 36.8 C 103 H 22 106/66 91 07/02/21 00:00 112 H Laboratory Results Short CBC 07/01/21 07/02/21 Range/Units 22:54 08:12 WBC 8.68 7.73 (4.8-10.8) K/uL Hgb 7.3 L 8.1 L (14.0-18.0) g/dL Hct 23.2 L 25.7 L (42-52) % Plt Count 59 L 50 L (130-400) K/uL BMP 07/01/21 07/02/21 22:54 08:12 Sodium 134 L 136 Potassium 4.5 4.1 Chloride 99 100 Carbon Dioxide 25 26 BUN 38 H 40 H Creatinine 0.79 0.79 Glucose 132 H 143 H Calcium 8.0 L 7.9 L Liver Function 07/02/21 Range/Units 08:12 Total Bilirubin 1.2 H (0.2-1.0) mg/dl AST 35 (13-39) U/L ALT 8 (7-52) U/L Alkaline Phosphatase 409 H (34-104) U/L Albumin 2.4 L (3.4-5.0) gm/dl Urine 07/02/21 Range/Units 04:00 Urine Color Red Urine Appearance Cloudy A (Clear) Urine pH 6.0 (4.5-7.5) Ur Specific [place] 1.025 (1.000-1.030) Urine Protein 3+ H (Negative) Urine Glucose (UA) Negative (Negative) Medications Administered Current Inpatient Medications Acetaminophen (Acetaminophen 325 Mg Tab) 650 mg PO Q4H PRN PRN Reason: Pain or Fever Stop: 07/21/21 21:18 Last Admin: 06/26/21 08:28 Dose: 650 mg Documented by: Diclofenac Sodium (Diclofenac Sod 1% Gel 100 Gm Tube) 4 gm EXT Q8H TONG Stop: 07/28/21 11:44 Last Admin: 07/02/21 11:20 Dose: 4 gm Documented by: Furosemide (Furosemide 40 Mg Tab) 40 mg PO QAM TONG Stop: 07/31/21 08:59 Last Admin: 07/01/21 08:45 Dose: 40 mg Documented by: Gabapentin (Gabapentin 300 Mg Cap) 300 mg PO HS TONG Stop: 07/27/21 20:59 Last Admin: 07/01/21 20:42 Dose: 300 mg Documented by: Guaifenesin (Guaifenesin Sugar Free 200 Mg/10 Ml Udc) 200 mg PO Q6H PRN PRN Reason: Cough Stop: 07/28/21 10:05 Cefepime HCl 2,000 mg/ Syringe 20 mls @ 5 mls/min IV Q12H TONG; Protocol Stop: 07/12/21 11:59 Lidocaine (Lidocaine 5% 1 Patch) 1 patch TD QAM [facility] Stop: 07/23/21 11:59 Last Admin: 07/02/21 08:49 Dose: 1 patch Documented by: Metoprolol Tartrate (Metoprolol Tartrate 25 Mg Tab) 25 mg PO TID [facility] Stop: 08/01/21 04:19 Last Admin: 07/02/21 04:26 Dose: 25 mg Documented by: Miscellaneous (Remove Lidoderm Patch) 1 ea N/A DAILY@2100 [facility] Stop: 07/23/21 20:59 Last Admin: 07/01/21 20:45 Dose: 1 ea Documented by: Miscellaneous (Remove Nicoderm Patch) 1 ea N/A DAILY@0859 [facility] Stop: 07/30/21 08:58 Last Admin: 07/02/21 08:50 Dose: 1 ea Documented by: Nicotine (Nicotine 14 Mg/24 Hr Patch) 14 mg TD QAM [facility] Stop: 07/29/21 10:59 Last Admin: 07/02/21 08:49 Dose: 14 mg Documented by: Oxycodone HCl (Oxycodone Hcl Ir 5 Mg Tab (Immediate Release)) 5 mg PO Q4H PRN PRN Reason: Severe Pain Stop: 07/10/21 08:10 Last Admin: 06/30/21 18:41 Dose: 5 mg Documented by: Oxycodone HCl (Oxycodone Hcl 10 Mg Tabcr (Oxycontin)) 10 mg PO Q12H [facility] Stop: 07/13/21 10:59 Last Admin: 07/02/21 11:20 Dose: 10 mg Documented by: Polyethylene Glycol (Polyethylene (Miralax) 17 Gm Pack) 17 gm PO DAILY PRN PRN Reason: Constipation Stop: 07/26/21 08:10 Polyethylene Glycol (Polyethylene (Miralax) 17 Gm Pack) 17 gm PO DAILY [facility] Stop: 08/01/21 11:14 Senna/Docusate Sodium (Docusate Sodium/Senna 50/8.6mg Tab) 2 tab PO BID [facility] Stop: 08/01/21 03:29 Last Admin: 07/02/21 08:49 Dose: 2 tab Documented by: Senna/Docusate Sodium (Docusate Sodium/Senna 50/8.6mg Tab) 1 tab PO QAM [facility] Stop: 08/02/21 08:59
[2021-07-02] MEDS: POLYETHYLENE (MIRALAX) 17 GM PACK PO SCH (11:45)
[2021-07-02] MEDS ORDERED: PIPERACILLIN/TAZOBACTAM 3.375 GM in DEXTROSE 5% 100 ML IV SCH (12:00)
[2021-07-02] MEDS: CEFEPIME 2,000 MG in SYRINGE 0 ML IV SCH (12:19)
[2021-07-02] MEDS: GABAPENTIN 300 MG CAP PO SCH (20:30)
[2021-07-03] MEDS: CEFEPIME 2,000 MG in SYRINGE 0 ML IV SCH ×2 (01:00→11:18)
[2021-07-03] MEDS: DICLOFENAC SOD 1% GEL 100 GM TUBE EXT SCH ×3 (04:09→20:25)
[2021-07-03 06:17] LABS: Hematocrit (blood only) 25.5 % (42-52); Hemoglobin 8.1 g/dL (14.0-18.0); Mean Corpuscular Hgb Conc 31.8 g/dL (32-36); Nucleated RBC # (auto) 0.09 K/uL (0-0); Nucleated RBC % (auto) 1.2 %; RDW Coefficient of Variation 17.4 % (11.5-14.5); RDW Standard Deviation 53.7 fL (36.4-46.3); White Blood Count 7.54 K/uL (4.8-10.8)
[2021-07-03 06:21] LABS: Mean Platelet Volume 9.3 fL (7.4-10.4); Platelet Count 44 K/uL (130-400)
[2021-07-03 06:42] LABS: BUN Creatinine Ratio 62.7 (10-20); Creatinine Clr Calc Pharmacy 106.4 ml/min; Est GFR (African American) 126.6 ml/min; Est GFR (Non-African American) 109.3 ml/min; Magnesium 2.2 mg/dl (1.7-2.4); Potassium 3.8 mmol/L (3.5-5.1)
[2021-07-03] MEDS: POLYETHYLENE (MIRALAX) 17 GM PACK PO SCH (08:04)
[2021-07-03] MEDS: LIDOCAINE 5% 1 PATCH TD SCH (08:07)
[2021-07-03] MEDS: NICOTINE 14 MG/24 HR PATCH TD SCH (08:07)
[2021-07-03] MEDS: METOPROLOL TARTRATE 25 MG TAB PO SCH ×3 (08:08→20:26)
[2021-07-03] MEDS: DOCUSATE SODIUM/SENNA 50/8.6MG TAB PO SCH ×2 (08:08→20:26)
[2021-07-03] MEDS ORDERED: DOCUSATE SODIUM/SENNA 50/8.6MG TAB PO SCH (09:00)
[2021-07-03] MEDS: oxyCODONE HCL 10 MG TABCR (OxyCONTIN) PO SCH ×2 (11:19→23:54)
--- NOTE | 2021-07-03 15:00 | Hospitalist Progress Note ---
Date of Service July 03, 2021 Assessment & Plan (1) Acute blood loss anemia: Plan: s/p 5 units pRBC so far this admission -H/H remains stable -[facility] with pink tinged urine -last blood transfusion was 07/01 (2) Bladder mass: Plan: S/p Cystoscopy with Transurethral resection of bladder tumor on 06/24/21 Urine cytology from 06/23/21 and pathology showed high grade urothelial carcinoma Patient will follow up with onco outpatient (3) Osseous metastasis: Plan: CT ABD/pelvis shows Large infiltrative mass of the urinary bladder is suggestive of a primary malignancy which demonstrates transmural spread of disease into the right perivesicular tissues and right hemipelvis. There are small adjacent soft tissue nodules compatible with local metastasis. The mass results in obstruction of the distal ureters with moderate to severe bilateral hydroureteronephrosis. There is a delayed right-sided nephrogram. Extensive osseous metastatic disease with questioned anterior epidural disease at L5. No acute pathologic fracture identified. Prominent subcentimeter iliac chain and inguinal lymph nodes are suspicious for lymphatic metastasis. CT chest shows evidence of extensive/diffuse osteoblastic metastatic disease. There are mildly enlarged left supraclavicular, mediastinal, and right hilar lymph nodes. These are suspicious for metastatic disease. There is a tiny cluster of nodules in the left upper lobe measuring up to 4 mm. These are likely on an inflammatory basis. Attention at follow-up is recommended. Pain control, appreciate Palliative Care input for pain management s/p one XR therapy 06/29 (4) Lactic acidosis: Plan: Lactic acid 4.8 --> 1.3 Hypovolemia, underlying malignancy likely contributing (5) Thrombocytopenia: Plan: On admission, Platelets 83K likely due to underlying malignancy Platelet count slowly down trending (6) Hyponatremia: Plan: Na has been low since admission Serum osm 281 Uosm 621 Maulik 48 TSH normal Possibly SIADH Fluid restrict and monitor Na normalized (7) Cardiomegaly: Plan: Noted on CT chest Echo report reviewed.No obvious pathology Patient has persistent sinus tachycardia. CTA chest today negative for PE but shows pleural effusion. Lasix 40mg PO daily 06/30--now held. Repeat CXR today negative for pleural effusion continue metoprolol 25mg BID--> increased to TID 07/01 with hold parameters (8) DVT prophylaxis: Plan: SCDs due to hematuria, anemia, thrombocytopenia Care mgt on board for dc planning/complex needs as patient reports he has no family, lives at his workplace as boss allows him to stay there in exchange for helping out Palliative eval appreciated CM working on placement Plan: Questionable UTI -07/01 UA obtained from [facility] is unexpectedly abnormal. Zosyn started--> cefepime. PCT elevated. Urine culture and blood culture negative. Will discontinue further antibiotics Cough with thin liquids -will go for [facility] tomorrow Ileus -seen on CT A/P -continue aggressive bowel regimen, place on full liquid diet until BM Admission and Anticipated Discharge Date Admission Date: June 21, 2021 Subjective Patient noted to be coughing with liquids Also no BM past several days despite aggressive bowel regimen Denies problems swallowing prior to hospitalization Physical Exam Physical Exam: Appears chronically ill, thin, cachetic Respiratory: Breathing comfortably on room air, no wheezing/rhonchi Cardiovascular: mildly tachycardic, no murmurs/rubs/gallops Gastrointestinal (Abdomen): Hypoactive, non tender Musculoskeletal: No edema Neurologic: awake, alert, spontaneously moving extremities, generalized weakness Genitourinary: [facility] draining blood tinged/red tinged urine Results & Data Results & Data ([facility]) Vital Signs (Past 12 Hours) Vital Signs Temp Pulse Resp BP Pulse Ox 07/03/21 11:28 36.3 C L 115 H 17 125/65 95 07/03/21 07:40 36.6 C 110 H 16 110/66 96 07/03/21 03:55 37.0 C 99 H 18 115/72 93 Laboratory Results Short CBC 07/03/21 Range/Units 05:43 WBC 7.54 (4.8-10.8) K/uL Hgb 8.1 L (14.0-18.0) g/dL Hct 25.5 L (42-52) % Plt Count 44 L (130-400) K/uL BMP 07/03/21 05:43 Sodium 138 Potassium 3.8 Chloride 103 Carbon Dioxide 25 BUN 37 H Creatinine 0.59 L Glucose 132 H Calcium 8.0 L Medications Administered Current Inpatient Medications Acetaminophen (Acetaminophen 325 Mg Tab) 650 mg PO Q4H PRN PRN Reason: Pain or Fever Stop: 07/21/21 21:18 Last Admin: 06/26/21 08:28 Dose: 650 mg Documented by: Diclofenac Sodium (Diclofenac Sod 1% Gel 100 Gm Tube) 4 gm EXT Q8H [facility] Stop: 07/28/21 11:44 Last Admin: 07/03/21 11:19 Dose: 4 gm Documented by: Furosemide (Furosemide 40 Mg Tab) [facility] Stop: 07/31/21 08:59 Last Admin: 07/01/21 08:45 Dose: 40 mg Documented by: Gabapentin (Gabapentin 300 Mg Cap) 300 mg PO HS [facility] Stop: 07/27/21 20:59 Last Admin: 07/02/21 20:30 Dose: 300 mg Documented by: Guaifenesin (Guaifenesin Sugar Free 200 Mg/10 Ml Udc) 200 mg PO Q6H PRN PRN Reason: Cough Stop: 07/28/21 10:05 Last Admin: 07/03/21 08:07 Dose: 200 mg Documented by: Cefepime HCl 2,000 mg/ Syringe 20 mls @ 5 mls/min IV Q12H [facility]; Protocol Stop: 07/12/21 11:59 Last Admin: 07/03/21 11:18 Dose: 5 mls/min Documented by: Lidocaine (Lidocaine 5% 1 Patch) 1 patch TD [facility] Stop: 07/23/21 11:59 Last Admin: 07/03/21 08:07 Dose: 1 patch Documented by: Metoprolol Tartrate (Metoprolol Tartrate 25 Mg Tab) 25 mg PO TID [facility] Stop: 08/01/21 04:19 Last Admin: 07/03/21 14:46 Dose: 25 mg Documented by: Miscellaneous (Remove Lidoderm Patch) 1 ea N/A DAILY@2100 [facility] Stop: 07/23/21 20:59 Last Admin: 07/02/21 20:32 Dose: 1 ea Documented by: Miscellaneous (Remove Nicoderm Patch) 1 ea N/A DAILY@0859 [facility] Stop: 07/30/21 08:58 Last Admin: 07/03/21 07:56 Dose: 1 ea Documented by: Nicotine (Nicotine 14 Mg/24 Hr Patch) 14 [facility] Stop: 07/29/21 10:59 Last Admin: 07/03/21 08:07 Dose: 14 mg Documented by: Oxycodone HCl (Oxycodone Hcl Ir 5 Mg Tab (Immediate Release)) 5 mg PO Q4H PRN PRN Reason: Severe Pain Stop: 07/10/21 08:10 Last Admin: 06/30/21 18:41 Dose: 5 mg Documented by: Oxycodone HCl (Oxycodone Hcl 10 Mg Tabcr (Oxycontin)) 10 mg PO Q12H [facility] Stop: 07/13/21 10:59 Last Admin: 07/03/21 11:19 Dose: 10 mg Documented by: Polyethylene Glycol (Polyethylene (Miralax) 17 Gm Pack) 17 gm PO DAILY PRN PRN Reason: Constipation Stop: 07/26/21 08:10 Polyethylene Glycol (Polyethylene (Miralax) 17 Gm Pack) 17 gm PO DAILY TONG Stop: 08/01/21 11:14 Last Admin: 07/03/21 08:04 Dose: 17 gm Documented by: Senna/Docusate Sodium (Docusate Sodium/Senna 50/8.6mg Tab) 2 tab PO BID TONG Stop: 08/01/21 03:29 Last Admin: 07/03/21 08:08 Dose: 2 tab Documented by:
[2021-07-03] MEDS: GABAPENTIN 300 MG CAP PO SCH (20:27)
[2021-07-04] MEDS: DICLOFENAC SOD 1% GEL 100 GM TUBE EXT SCH ×3 (05:33→22:06)
[2021-07-04 05:47] LABS: Hemoglobin 8.1 g/dL (14.0-18.0); Mean Corpuscular Hemoglobin 26.9 pg (25-34); Mean Corpuscular Hgb Conc 31.2 g/dL (32-36); Mean Corpuscular Volume 86.4 fL (80-100); Nucleated RBC # (auto) 0.11 K/uL (0-0); Nucleated RBC % (auto) 1.7 %; RDW Coefficient of Variation 17.5 % (11.5-14.5); RDW Standard Deviation 54.9 fL (36.4-46.3); Red Blood Count 3.01 M/uL (4.7-6.1); White Blood Count 6.64 K/uL (4.8-10.8)
[2021-07-04 06:04] LABS: Mean Platelet Volume 9.8 fL (7.4-10.4); Platelet Count 41 K/uL (130-400)
[2021-07-04 06:06] LABS: BUN Creatinine Ratio 68.3 (10-20); Calcium 8.2 mg/dl (8.5-10.1); Creatinine Clr Calc Pharmacy 100.7 ml/min; Est GFR (African American) 123.3 ml/min; Est GFR (Non-African American) 106.4 ml/min; Potassium 4.3 mmol/L (3.5-5.1)
[2021-07-04] MEDS: DOCUSATE SODIUM/SENNA 50/8.6MG TAB PO SCH (08:39)
[2021-07-04] MEDS: LIDOCAINE 5% 1 PATCH TD SCH (08:39)
[2021-07-04] MEDS: METOPROLOL TARTRATE 25 MG TAB PO SCH (08:40)
[2021-07-04] MEDS: NICOTINE 14 MG/24 HR PATCH TD SCH (08:40)
[2021-07-04] MEDS: POLYETHYLENE (MIRALAX) 17 GM PACK PO SCH (08:40)
[2021-07-04] MEDS: oxyCODONE HCL 10 MG TABCR (OxyCONTIN) PO SCH (10:39)
--- NOTE | 2021-07-04 12:34 | Palliative Care Progress Note ---
Date of Service July 04, 2021 Assessment & Plan (1) Shoulder pain, bilateral: Plan: Controlled on Oxycodone SR 10mg BID with adjuvant gabapentin, lidocaine and diclofenac (2) Hip pain, bilateral: Plan: As above (3) Constipation: Plan: On Senna S BID. Miralax added by hospitalist. RN reports that he did take this today. (4) Palliative care encounter: Plan: I talked with Kojo about my concern that he is getting progressively weaker and losing weight. I expressed concern that he may not be able to receive treatment when he is so debilitated. He became frustrated and was not willing to continue our conversation. I tried to call his friend, Naveed, twice with no answer and no voicemail. Plan at this time remains transfer to SNF when medically stable for rehab and hope to meet with oncology to discuss treatment. Palliative care will follow. Admission and Anticipated Discharge Date Admission Date: June 21, 2021 Subjective Very weak. Fades out at times during conversation. Says that pain is okay. Has not used any prn medications Review of Systems Review of Systems: [place] Symptom Assessment Scale Pain 1/3 Dyspnea 0/3 Anorexia 2/3 Fatigue 2/3 LBM 06/29 Physical Exam Constitutional: + ill appearing and + thin Respiratory: + uses accessory muscles Cardiovascular: Rate/Rhythm: regular rhythm and + tachycardic Gastrointestinal (Abdomen): firm, nontender Genitourinary: gross hematuria Results & Data ([facility]) Vital Signs (Past 12 Hours) Vital Signs Temp Pulse Resp BP Pulse Ox 07/04/21 11:43 98.1 F 120 H 16 117/78 98 07/04/21 07:40 98.2 F 119 H 15 135/75 97 07/04/21 03:46 98.2 F 108 H 18 123/75 92 PG Care Time/CCT Total # of Minutes Spent Total Time Spent with Patient: Total time spent is greater than 50% in coordination of care (as documented) at patient's floor/unit and/or counseling patient: Coding Level of Care Code 95684 Subseq Hosp Care Lvl 2 Diagnoses Shoulder pain, bilateral M25.511; M25.512 Hip pain, bilateral M25.551; M25.552 Constipation K59.00 Palliative care encounter Z51.5
[2021-07-04] MEDS ORDERED: ACETAMINOPHEN 650 MG SUPP PR PRN (13:57)
[2021-07-04] MEDS ORDERED: MoRPHine SULFATE 2 MG/ML CARP IV PRN (13:57)
[2021-07-04] MEDS ORDERED: MoRPHine SULFATE 4 MG/ML 1 ML CARP\\VIAL IV PRN ×2 (13:57→14:03)
[2021-07-04] MEDS ORDERED: bisacodyL 10 MG SUPP PR PRN (13:57)
[2021-07-04] MEDS ORDERED: ONDANSETRON INJ 2 MG/ML 2 ML VIAL IV PRN (13:59)
[2021-07-04] MEDS ORDERED: MoRPHine SULFATE 10 MG/0.5 ML UDP SL SCH (14:00)
--- NOTE | 2021-07-04 14:05 | Hospitalist Progress Note ---
Date of Service July 04, 2021 Assessment & Plan (1) Acute blood loss anemia: Plan: s/p 5 units pRBC so far this admission -H/H remains stable -Mclaughlin with pink tinged urine -last blood transfusion was 07/01 -will give 1 unit Platelet for increase bleeding in mclaughlin (keep Platelet > 50K) (2) Bladder mass: Plan: S/p Cystoscopy with Transurethral resection of bladder tumor on 06/24/21 Urine cytology from 06/23/21 and pathology showed high grade urothelial carcinoma Patient will follow up with onco outpatient (3) Osseous metastasis: Plan: CT ABD/pelvis shows Large infiltrative mass of the urinary bladder is suggestive of a primary malignancy which demonstrates transmural spread of disease into the right perivesicular tissues and right hemipelvis. There are small adjacent soft tissue nodules compatible with local metastasis. The mass results in obstruction of the distal ureters with moderate to severe bilateral hydroureteronephrosis. There is a delayed right-sided nephrogram. Extensive osseous metastatic disease with questioned anterior epidural disease at L5. No acute pathologic fracture identified. Prominent subcentimeter iliac chain and inguinal lymph nodes are suspicious for lymphatic metastasis. CT chest shows evidence of extensive/diffuse osteoblastic metastatic disease. There are mildly enlarged left supraclavicular, mediastinal, and right hilar lymph nodes. These are suspicious for metastatic disease. There is a tiny cluster of nodules in the left upper lobe measuring up to 4 mm. These are likely on an inflammatory basis. Attention at follow-up is recommended. Pain control, appreciate Palliative Care input for pain management s/p one XR therapy 06/29 (4) Lactic acidosis: Plan: Lactic acid 4.8 --> 1.3 Hypovolemia, underlying malignancy likely contributing (5) Thrombocytopenia: Plan: On admission, Platelets 83K likely due to underlying malignancy Transfuse to keep Platelet > 50K to avoid worsening hematuria (6) Hyponatremia: Plan: Na has been low since admission Serum osm 281 Uosm 621 Maulik 48 TSH normal Possibly SIADH Fluid restrict and monitor Na normalized (7) Cardiomegaly: Plan: Noted on CT chest Echo report reviewed.No obvious pathology Patient has persistent sinus tachycardia. CTA chest today negative for PE but shows pleural effusion. Lasix 40mg PO daily 06/30--now held. Repeat CXR today negative for pleural effusion continue metoprolol 25mg BID--> increased to TID 07/01 with hold parameters (8) DVT prophylaxis: Plan: SCDs due to hematuria, anemia, thrombocytopenia Care mgt on board for dc planning/complex needs as patient reports he has no family, lives at his workplace as boss allows him to stay there in exchange for helping out Palliative eval appreciated CM working on placement Plan: Questionable UTI -07/01 UA obtained from mclaughlin is unexpectedly abnormal. Zosyn started--> cefepime. PCT elevated. Urine culture and blood culture negative. Will dis continue further antibiotics Cough with thin liquids Dysphagia to thick/thins -diet changed to full thickened yesterday, today completely failed THERAPEUTIC RECREATION SPECIALIST and patient couldn't even manage his own oral secretions -will place on strict NPO. Ongoing THERAPEUTIC RECREATION SPECIALIST assessment. -He likely will need a PEG tube if he wants to pursue full treatment/care. Otherwise should transition to comfort which he has not been ready to do previously. Ileus -seen on CT A/P -no BM despite aggressive regimen past several days. will start dulcolax MS daily Admission and Anticipated Discharge Date Admission Date: June 21, 2021 Subjective Having difficulty swallowing. Per THERAPEUTIC RECREATION SPECIALIST he is having trouble swallowing his own oral secretions Patient with poor understanding or acknowledgement of his disease process Mclaughlin is draining more bloody urine Physical Exam Physical Exam: Cachetic, thin, withdrawn, flat affect Respiratory: breathing comfortable, no wheezing/rhonchi/rales Cardiovascular: tachycardic but regular, no murmurs/rubs/gallops Gastrointestinal (Abdomen): Hypoactive Musculoskeletal: thin Psychiatric: flat affect, withdrawn Genitourinary: Hematuria appears to be worsening Results & Data Results & Data ([facility]) Vital Signs (Past 12 Hours) Vital Signs Temp Pulse Resp BP Pulse Ox 07/04/21 11:43 36.7 C 120 H 16 117/78 98 07/04/21 07:40 36.8 C 119 H 15 135/75 97 07/04/21 03:46 36.8 C 108 H 18 123/75 92 Laboratory Results Short CBC 07/04/21 Range/Units 05:29 WBC 6.64 (4.8-10.8) K/uL Hgb 8.1 L (14.0-18.0) g/dL Hct 26.0 L (42-52) % Plt Count 41 L (130-400) K/uL BMP 07/04/21 05:29 Sodium 140 Potassium 4.3 Chloride 105 Carbon Dioxide 24 BUN 43 H Creatinine 0.63 Glucose 137 H Calcium 8.2 L Medications Administered Current Inpatient Medications Acetaminophen (Acetaminophen 325 Mg Tab) 650 mg PO Q4H PRN PRN Reason: Pain or Fever Stop: 07/21/21 21:18 Last Admin: 06/26/21 08:28 Dose: 650 mg Documented by: Acetaminophen (Acetaminophen 650 Mg Supp) 650 mg MS Q4H PRN PRN Reason: pain Stop: 08/03/21 13:56 Bisacodyl (Bisacodyl 10 Mg Supp) 10 mg MS DAILY PRN PRN Reason: Constipation Stop: 08/03/21 13:56 Diclofenac Sodium (Diclofenac Sod 1% Gel 100 Gm Tube) 4 gm EXT Q8H [facility] Stop: 07/28/21 11:44 Last Admin: 07/04/21 10:39 Dose: 4 gm Documented by: Furosemide ([facility] 40 Mg Tab) [facility]: 07/31/21 08:59 Last Admin: 07/01/21 08:45 Dose: 40 mg Documented by: Gabapentin (Gabapentin 300 Mg Cap) 300 mg PO HS [facility] Stop: 07/27/21 20:59 Last Admin: 07/03/21 20:27 Dose: 300 mg Documented by: Guaifenesin (Guaifenesin Sugar Free 200 Mg/10 Ml Udc) 200 mg PO Q6H PRN PRN Reason: Cough Stop: 07/28/21 10:05 Last Admin: 07/03/21 08:07 Dose: 200 mg Documented by: Lidocaine (Lidocaine 5% 1 Patch) [facility] [place] Stop: 07/23/21 11:59 Last Admin: 07/04/21 08:39 Dose: 1 patch Documented by: Metoprolol Tartrate (Metoprolol Tartrate 25 Mg Tab) 25 mg PO TID [facility] Stop: 08/01/21 04:19 Last Admin: 07/04/21 08:40 Dose: 25 mg Documented by: Metoprolol Tartrate (Metoprolol Tartrate 1 Mg/Ml Vial) 2.5 mg IV Q6 [facility]; Protocol Stop: 08/03/21 17:59 Miscellaneous (Remove Lidoderm Patch) 1 ea N/A DAILY@2100 [facility] Stop: 07/23/21 20:59 Last Admin: 07/03/21 20:27 Dose: 1 ea Documented by: Miscellaneous (Remove Nicoderm Patch) 1 ea N/A DAILY@0859 [facility] Stop: 07/30/21 08:58 Last Admin: 07/04/21 08:33 Dose: 1 ea Documented by: Morphine Sulfate (Morphine Sulfate 2 Mg/Ml Carp) 2 mg IV Q4 PRN PRN Reason: Pain Stop: 07/18/21 13:56 Morphine Sulfate (Morphine Sulfate 4 Mg/Ml 1 Ml Carp\Vial) 4 mg IV Q4 PRN PRN Reason: Pain Stop: 07/18/21 13:56 Nicotine (Nicotine 14 Mg/24 Hr Patch) 14 mg TD QAM [facility] Stop: 07/29/21 10:59 Last Admin: 07/04/21 08:40 Dose: 14 mg Documented by: Ondansetron HCl (Ondansetron Inj 2 Mg/Ml 2 Ml Vial) 4 mg IV Q6H PRN PRN Reason: Nausea And Vomiting Stop: 08/03/21 13:58 Oxycodone HCl (Oxycodone Hcl Ir 5 Mg Tab (Immediate Release)) 5 mg PO Q4H PRN PRN Reason: Severe Pain Stop: 07/10/21 08:10 Last Admin: 06/30/21 18:41 Dose: 5 mg Documented by: Oxycodone HCl (Oxycodone Hcl 10 Mg Tabcr (Oxycontin)) 10 mg PO Q12H [facility] Stop: 07/13/21 10:59 Last Admin: 07/04/21 10:39 Dose: 10 mg Documented by: Polyethylene Glycol (Polyethylene (Miralax) 17 Gm Pack) 17 gm PO DAILY PRN PRN Reason: Constipation Stop: 07/26/21 08:10 Polyethylene Glycol (Polyethylene (Miralax) 17 Gm Pack) 17 gm PO DAILY [facility] Stop: 08/01/21 11:14 Last Admin: 07/04/21 08:40 Dose: 17 gm Documented by: Senna/Docusate Sodium (Docusate Sodium/Senna 50/8.6mg Tab) 2 tab PO BID [facility] Stop: 08/01/21 03:29 Last Admin: 07/04/21 08:39 Dose: 2 tab Documented by:
[2021-07-04] MEDS: METOPROLOL TARTRATE 1 MG/ML VIAL IV SCH (18:03)
[2021-07-04] MEDS: D5W AND NSS 1,000 ML IV SCH (19:08)
[2021-07-04] MEDS: MoRPHine SULFATE 5 MG/0.25 ML UDP SL SCH (22:06)
[2021-07-05] MEDS: MoRPHine SULFATE 5 MG/0.25 ML UDP SL SCH ×3 (02:07→08:12)
[2021-07-05] MEDS: METOPROLOL TARTRATE 1 MG/ML VIAL IV SCH ×4 (02:07→19:09)
[2021-07-05] MEDS: DICLOFENAC SOD 1% GEL 100 GM TUBE EXT SCH ×3 (05:28→20:10)
[2021-07-05 05:58] LABS: Nucleated RBC # (auto) 0.12 K/uL (0-0); Nucleated RBC % (auto) 1.8 %
[2021-07-05 06:18] LABS: BUN Creatinine Ratio 85.2 (10-20); Calcium 7.9 mg/dl (8.5-10.1); Creatinine Clr Calc Pharmacy 120.7 ml/min; Est GFR (African American) 131.3 ml/min; Est GFR (Non-African American) 113.3 ml/min
[2021-07-05 06:43] LABS: Hematocrit (blood only) 25.2 % (42-52); Hemoglobin 7.8 g/dL (14.0-18.0); Mean Corpuscular Hemoglobin 26.8 pg (25-34); Mean Corpuscular Volume 86.6 fL (80-100); Mean Platelet Volume 10.2 fL (7.4-10.4); Platelet Count 76 K/uL (130-400); RDW Coefficient of Variation 17.7 % (11.5-14.5); RDW Standard Deviation 55.1 fL (36.4-46.3); Red Blood Count 2.91 M/uL (4.7-6.1); White Blood Count 6.69 K/uL (4.8-10.8)
[2021-07-05 06:44] LABS: Platelet Estimate Decreased (Normal)
[2021-07-05] MEDS: D5W AND NSS 1,000 ML IV SCH (08:04)
[2021-07-05] MEDS: LIDOCAINE 5% 1 PATCH TD SCH (08:05)
[2021-07-05] MEDS: NICOTINE 14 MG/24 HR PATCH TD SCH (08:07)
[2021-07-05] MEDS ORDERED: ONDANSETRON 4 MG OD TAB SL PRN (12:02)
[2021-07-05] MEDS ORDERED: GLYCOPYRROLATE 0.2 MG/ML VIAL IV PRN (12:02)
[2021-07-05] MEDS ORDERED: ONDANSETRON INJ 2 MG/ML 2 ML VIAL IV PRN (12:02)
[2021-07-05] MEDS ORDERED: LORazepam 0.5 MG TAB PO PRN (12:02)
[2021-07-05] MEDS ORDERED: LORazepam 2 MG/1 ML VIAL IV PRN (12:02)
--- NOTE | 2021-07-05 12:02 | Palliative Care Progress Note ---
Date of Service July 05, 2021 Assessment & Plan (1) Hip pain, bilateral: Plan: Will increase routine morphine dosing. Continue prn dosing. Discussed with RN to give prn dose now. (2) Constipation: Plan: BM today (3) Palliative care encounter: Plan: I talked with Kojo about our plan of care moving forward. He is frustrated with thickened liquids and progressive weakness. I explained to him that it is unlikely that he will be able to regain significant functional status to be able to have cancer treatment, even with rehab which would be very difficult for him at this time. He responded "my goose is cooked". We discussed possibility of continuing to work for rehab versus shift of focus to comfort to make his remaining days as good as possible. "That's what I want". We also discussed permissive aspiration with shift of focus to comfort which would allow him to drink or eat for comfort, knowing the risk of aspiration . He would like to take that approach. Notified Dr. Lewis and RN. I also spoke with case management about care plan. Goal would be to placement at SNF with hospice. I called Naveed Carpenter, Kojo's friend and surrogate decision maker, to update him. He supports Kojo's decision and is planning to come and visit today. desk maker is aware. (4) Bladder cancer metastasized to bone: Admission and Anticipated Discharge Date Admission Date: June 21, 2021 Subjective Sitting in chair at bedside. Complains of neck and right leg pain. Also complains of difficulty talking. Mild delirium (asking about a leslie in the room who isn't present) Review of Systems Review of Systems: [place] Symptom Assessment Scale Pain 2/3 Dyspnea 0/3 Anxiety 2/3 Fatigue 2/3 LBM 07/05 Palliative Performance Score 40% Physical Exam Constitutional: + ill appearing and + thin ENMT: Mouth: + dry oral mucous membranes Respiratory: + uses accessory muscles Gastrointestinal (Abdomen): nontender, nondistended Musculoskeletal: Extremities: + muscle atrophy Neurologic: moves all extremities and awake Genitourinary: gross hematuria Results & Data ([facility]) Vital Signs (Past 12 Hours) Vital Signs Temp Pulse Pulse Resp BP BP Pulse Ox 07/05/21 11:42 98.4 F 135 H 22 113/72 94 07/05/21 07:50 98.6 F 120 H 19 154/61 H 93 07/05/21 05:28 119 H 107/70 07/05/21 04:23 98.8 F 125 H 22 149/82 H 95 07/05/21 02:07 119 H 107/70 PG Care Time/CCT Total # of Minutes Spent Total Time Spent: 45 Total Time Spent with Patient: Total time spent is greater than 50% in coordination of care (as documented) at patient's floor/unit and/or counseling patient: goals of care, symptom management, coordination of care Coding Level of Care Code 88543 Subseq Hosp Care Lvl 3 Diagnoses Hip pain, bilateral M25.551; M25.552 Constipation K59.00 Palliative care encounter Z51.5 Bladder cancer metastasized to bone C67.9; C79.51
[2021-07-05] MEDS: MoRPHine SULFATE 2 MG/ML CARP IV PRN (12:13)
--- NOTE | 2021-07-05 14:16 | Hospitalist Progress Note ---
Date of Service July 05, 2021 Assessment & Plan (1) Acute blood loss anemia: Plan: s/p 6 units pRBC this admission (2) Bladder mass: Plan: S/p Cystoscopy with Transurethral resection of bladder tumor on 06/24/21 Urine cytology from 06/23/21 and pathology showed high grade urothelial carcinoma (3) Osseous metastasis: Plan: CT ABD/pelvis shows Large infiltrative mass of the urinary bladder is suggestive of a primary malignancy which demonstrates transmural spread of disease into the right perivesicular tissues and right hemipelvis. There are small adjacent soft tissue nodules compatible with local metastasis. The mass results in obstruction of the distal ureters with moderate to severe bilateral hydroureteronephrosis. There is a delayed right-sided nephrogram. Extensive osseous metastatic disease with questioned anterior epidural disease at L5. No acute pathologic fracture identified. Prominent subcentimeter iliac chain and inguinal lymph nodes are suspicious for lymphatic metastasis. CT chest shows evidence of extensive/diffuse osteoblastic metastatic disease. There are mildly enlarged left supraclavicular, mediastinal, and right hilar lymph nodes. These are suspicious for metastatic disease. There is a tiny cluster of nodules in the left upper lobe measuring up to 4 mm. These are likely on an inflammatory basis. Pain control, appreciate Palliative Care input for pain management s/p one XR therapy 06/29 (4) Lactic acidosis: (5) Thrombocytopenia: (6) Hyponatremia: Plan: Now with hypernatremia (7) Cardiomegaly: Plan: Persistent sinus tachycardia likely due to underlying malignancy. Continue lopressor 5mg IV Q 6 to avoid tachycardia which would cause discomfort (8) Comfort measures only status: Plan: Patient requested DNR/DNI status 07/04 Patient wishes to transition to comfort measures only after discussing with Palliative Care today. Orders are in. Will transfer to med/surg Plan: Dysphagia to thick/thins -CHUTE OPERATOR evaluation yesterday, patient unable to even clear his own secretions. He was placed on strict NPO yesterday but now that he is comfort, will place on a regular diet for comfort feeds Ileus -seen on CT A/P -no BM despite aggressive regimen past several days. continue dulcolax SC daily Admission and Anticipated Discharge Date Admission Date: June 21, 2021 Subjective Yesterday patient requested to change code status to DNR/DNI Today after discussing with Palliative Care, he is wishing to switch to comfort measures only Physical Exam Physical Exam: Thin, cachetic, appears ill Respiratory: breathing comfortably, no wheezing/rhonchi/rales Cardiovascular: tachycardic but regular Gastrointestinal (Abdomen): Hypoactive Musculoskeletal: thin Genitourinary: mclaughlin is draining bloody urine Results & Data Results & Data ([facility]) Vital Signs (Past 12 Hours) Vital Signs Temp Pulse Pulse Resp BP BP Pulse Ox 07/05/21 12:14 132 H 07/05/21 11:42 36.9 C 135 H 22 113/72 94 07/05/21 07:50 37.0 C 120 H 19 154/61 H 93 07/05/21 05:28 119 H 107/70 07/05/21 04:23 37.1 C 125 H 22 149/82 H 95 Laboratory Results Short CBC 07/05/21 Range/Units 05:38 WBC 6.69 (4.8-10.8) K/uL Hgb 7.8 L (14.0-18.0) g/dL Hct 25.2 L (42-52) % Plt Count 76 L D (130-400) K/uL BMP 07/05/21 05:38 Sodium 148 H Potassium 4.0 Chloride 111 H Carbon Dioxide 26 BUN 46 H Creatinine 0.54 L Glucose 170 H Calcium 7.9 L Medications Administered Current Inpatient Medications Acetaminophen (Acetaminophen 650 Mg Supp) 650 mg SC Q4H PRN PRN Reason: pain Stop: 08/03/21 13:56 Bisacodyl (Bisacodyl 10 Mg Supp) 10 mg SC DAILY PRN PRN Reason: Constipation Stop: 08/03/21 13:56 Diclofenac Sodium (Diclofenac Sod 1% Gel 100 Gm Tube) 4 gm EXT Q8H [facility] Stop: 07/28/21 11:44 Last Admin: 07/05/21 12:14 Dose: Not Given Documented by: Furosemide (Furosemide 40 Mg Tab) 40 mg PO QAM [facility] Stop: 07/31/21 08:59 Last Admin: 07/01/21 08:45 Dose: 40 mg Documented by: Glycopyrrolate (Glycopyrrolate 0.2 Mg/Ml Vial) 0.2 mg IV Q4H PRN PRN Reason: Secretions or Pulm Congestion Stop: 08/04/21 12:01 Dextrose/Sodium Chloride (D5w And Nss) 1,000 mls @ 80 mls/hr IV .Q12O70H [facility] Stop: 08/03/21 18:44 Last Admin: 07/05/21 08:04 Dose: 80 mls/hr Documented by: Lidocaine (Lidocaine 5% 1 Patch) 1 patch TD QAM [facility] Stop: 07/23/21 11:59 Last Admin: 07/05/21 08:05 Dose: 1 patch Documented by: Lorazepam (Lorazepam 0.5 Mg Tab) 0.5 mg PO Q4H PRN PRN Reason: Anxiety/Agitation Stop: 08/04/21 12:01 Lorazepam (Lorazepam 2 Mg/1 Ml Vial) 0.5 mg IV Q4H PRN PRN Reason: Anxiety/Agitation Stop: 08/04/21 12:01 Metoprolol Tartrate (Metoprolol Tartrate 25 Mg Tab) 25 mg PO TID [facility] Stop: 08/01/21 04:19 Last Admin: 07/04/21 08:40 Dose: 25 mg Documented by: Metoprolol Tartrate (Metoprolol Tartrate 1 Mg/Ml Vial) 5 mg IV Q6 [facility]; Protocol Stop: 08/04/21 11:59 Last Admin: 07/05/21 12:14 Dose: 5 mg Documented by: Miscellaneous (Remove Lidoderm Patch) 1 ea N/A DAILY@2100 [facility] Stop: 07/23/21 20:59 Last Admin: 07/04/21 22:06 Dose: 1 ea Documented by: Miscellaneous (Remove Nicoderm Patch) 1 ea N/A DAILY@0859 [facility] Stop: 07/30/21 08:58 Last Admin: 07/05/21 08:05 Dose: 1 ea Documented by: Morphine Sulfate (Morphine Sulfate 2 Mg/Ml Carp) 2 mg IV Q4 PRN PRN Reason: Moderate Pain Stop: 07/18/21 13:56 Last Admin: 07/05/21 12:13 Dose: 2 mg Documented by: Morphine Sulfate (Morphine Sulfate 4 Mg/Ml 1 Ml Carp\Vial) 4 mg IV Q4 PRN PRN Reason: Severe Pain Stop: 07/18/21 13:56 Morphine Sulfate (Morphine Sulfate 10 Mg/0.5 Ml Udp) 7.5 mg SL Q4H [facility] Stop: 07/19/21 15:59 Nicotine (Nicotine 14 Mg/24 Hr Patch) 14 mg TD QAM [facility] Stop: 07/29/21 10:59 Last Admin: 07/05/21 08:07 Dose: 14 mg Documented by: Ondansetron HCl (Ondansetron Inj 2 Mg/Ml 2 Ml Vial) 4 mg IV Q4H PRN PRN Reason: Nausea &/or Vomiting Stop: 08/04/21 12:01 Ondansetron HCl (Ondansetron 4 Mg Od Tab) 4 mg SL Q4H PRN PRN Reason: Nausea &/or Vomiting Stop: 08/04/21 12:01
[2021-07-05] MEDS: MoRPHine SULFATE 10 MG/0.5 ML UDP SL SCH ×2 (16:45→20:10)
[2021-07-06] MEDS: MoRPHine SULFATE 10 MG/0.5 ML UDP SL SCH ×6 (00:29→22:18)
[2021-07-06] MEDS: METOPROLOL TARTRATE 1 MG/ML VIAL IV SCH (00:36)
[2021-07-06] MEDS: DICLOFENAC SOD 1% GEL 100 GM TUBE EXT SCH ×3 (04:34→22:18)
[2021-07-06] MEDS: NICOTINE 14 MG/24 HR PATCH TD SCH (09:12)
[2021-07-06] MEDS: LIDOCAINE 5% 1 PATCH TD SCH (09:15)
[2021-07-06] MEDS ORDERED: MoRPHine SULFATE 5 MG/0.25 ML UDP PO PRN (11:52)
--- NOTE | 2021-07-06 14:08 | Palliative Care Progress Note ---
Date of Service July 06, 2021 Assessment & Plan (1) Hip pain, bilateral: Plan: On routine morphine. Will increase routine dose. Added prn roxanol order for breakthrough pain. (2) Shoulder pain, bilateral: Plan: As above (3) Palliative care encounter: Plan: Kojo is declining and likely to within days to a week. Case management has been working on placement and continues to work with [facility], though he apparently does not have inpatient MA. Continue comfort focus per Kojo's wishes. (4) Bladder cancer metastasized to bone: Admission and Anticipated Discharge Date Admission Date: June 21, 2021 Subjective Lethargic but arousable. Grimaces and complains of pain. Lost IV access for prn IV morphine. Review of Systems Review of Systems: Unobtainable due to reduced consciousness [place] Symptom Assessment Scale Pain 2/3 Dyspnea 0/3 Drowsiness 2/3 Palliative Performance Score 20% Physical Exam Constitutional: + lethargic ENMT: Mouth: + dry oral mucous membranes Respiratory: + uses accessory muscles no audible secretions Cardiovascular: Rate/Rhythm: + tachycardic Musculoskeletal: Extremities: + muscle hypertrophy PG Care Time/CCT Total # of Minutes Spent Total Time Spent with Patient: Total time spent is greater than 50% in coordination of care (as documented) at patient's floor/unit and/or counseling patient: Coding Level of Care Code 49136 Subseq Hosp Care Lvl 2 Diagnoses Hip pain, bilateral M25.551; M25.552 Shoulder pain, bilateral M25.511; M25.512 Palliative care encounter Z51.5 Bladder cancer metastasized to bone C67.9; C79.51
--- NOTE | 2021-07-06 14:25 | Hospitalist Progress Note ---
Date of Service July 06, 2021 Assessment & Plan (1) Bladder mass: Plan: S/p Cystoscopy with Transurethral resection of bladder tumor on 06/24/21 Urine cytology from 06/23/21 and pathology showed- High grade urothelial carcinoma Has osseous metastasis as below s/p one XR therapy 06/29 Appreciate palliative care input and recommendation Pain control, appreciate Palliative Care input for pain management Comfort care status (2) Osseous metastasis: Plan: Imaging studies revealed: CT ABD/pelvis shows Large infiltrative mass of the urinary bladder is suggestive of a primary malignancy which demonstrates transmural spread of disease into the right perivesicular tissues and right hemipelvis. There are small adjacent soft tissue nodules compatible with local metastasis. The mass results in obstruction of the distal ureters with moderate to severe bilateral hydroureteronephrosis. There is a delayed right-sided nephrogram. Extensive osseous metastatic disease with questioned anterior epidural disease at L5. No acute pathologic fracture identified. Prominent subcentimeter iliac chain and inguinal lymph nodes are suspicious for lymphatic metastasis. CT chest shows evidence of extensive/diffuse osteoblastic metastatic disease. There are mildly enlarged left supraclavicular, mediastinal, and right hilar lymph nodes. These are suspicious for metastatic disease. There is a tiny cluster of nodules in the left upper lobe measuring up to 4 mm. These are likely on an inflammatory basis. (3) Acute blood loss anemia: Plan: s/p 6 units pRBC this admission (4) Lactic acidosis: (5) Thrombocytopenia: (6) Hyponatremia: Plan: Now with hypernatremia (7) Cardiomegaly: Plan: Persistent sinus tachycardia likely due to underlying malignancy. Continue lopressor 5mg IV Q 6 to avoid tachycardia which would cause discomfort (8) Comfort measures only status: Plan: Patient requested DNR/DNI status 07/04 Patient wishes to transition to comfort measures only after discussing with Palliative Care today. Orders are in. Plan: Dysphagia to thick/thins [employer] evaluation , patient unable to even clear his own secretions. He was placed on strict NPO yesterday but now that he is comfort, will place on a regular diet for comfort feeds Ileus -seen on CT A/P -no BM despite aggressive regimen past several days. continue dulcolax MS daily Admission and Anticipated Discharge Date Admission Date: June 21, 2021 Subjective 07/06/2021 The patient was seen and examined in medical floor He has been very weak, frustrated, anxious and seems to be in pain Denies any shortness of breath, any nausea and or vomiting Review of Systems Review of Systems: Unobtainable due to cognitive status Physical Exam Physical Exam: Lying in bed with minimal distress due to pain Constitutional: + ill appearing and average body habitus Eyes: PERRL, conjunctivae normal, anicteric sclerae ENMT: external ear and nose normal, oropharynx normal Neck: trachea midline, no thyromegaly Respiratory: no respiratory distress Auscultation: + diminished lung sounds and + crackles (Occasional crackles at the bases with transmitted sound from trachea) Gastrointestinal (Abdomen): Inspection/Auscultation: normal bowel sounds; abdomen not distended Percussion/Palpation: abdomen soft; abdomen nontender Musculoskeletal: No acute arthritis in any joint Neurologic: Alert and awake. Extremely weak and lethargic Results & Data Results & Data ([facility]) Medications Administered Current Inpatient Medications Acetaminophen (Acetaminophen 650 Mg Supp) 650 mg MS Q4H PRN PRN Reason: pain Stop: 08/03/21 13:56 Bisacodyl (Bisacodyl 10 Mg Supp) 10 mg MS DAILY PRN PRN Reason: Constipation Stop: 08/03/21 13:56 Diclofenac Sodium (Diclofenac Sod 1% Gel 100 Gm Tube) 4 gm EXT Q8H [facility] Stop: 07/28/21 11:44 Last Admin: 07/06/21 13:16 Dose: Not Given Documented by: Glycopyrrolate (Glycopyrrolate 0.2 Mg/Ml Vial) 0.2 mg IV Q4H PRN PRN Reason: Secretions or Pulm Congestion Stop: 08/04/21 12:01 Lidocaine (Lidocaine 5% 1 Patch) 1 patch TD QAM [facility] Stop: 07/23/21 11:59 Last Admin: 07/06/21 09:15 Dose: 1 patch Documented by: Lorazepam (Lorazepam 0.5 Mg Tab) 0.5 mg PO Q4H PRN PRN Reason: Anxiety/Agitation Stop: 08/04/21 12:01 Lorazepam (Lorazepam 2 Mg/1 Ml Vial) 0.5 mg IV Q4H PRN PRN Reason: Anxiety/Agitation Stop: 08/04/21 12:01 Miscellaneous (Remove Lidoderm Patch) 1 ea N/A DAILY@2100 [facility] Stop: 07/23/21 20:59 Last Admin: 07/05/21 20:10 Dose: 1 ea Documented by: Miscellaneous (Remove Nicoderm Patch) 1 ea N/A DAILY@0859 [facility] Stop: 07/30/21 08:58 Last Admin: 07/06/21 09:17 Dose: 1 ea Documented by: Morphine Sulfate (Morphine Sulfate 2 Mg/Ml Carp) 2 mg IV Q4 PRN PRN Reason: Moderate Pain Stop: 07/18/21 13:56 Last Admin: 07/05/21 12:13 Dose: 2 mg Documented by: Morphine Sulfate (Morphine Sulfate 4 Mg/Ml 1 Ml Carp\Vial) 4 mg IV Q4 PRN PRN Reason: Severe Pain Stop: 07/18/21 13:56 Morphine Sulfate (Morphine Sulfate 10 Mg/0.5 Ml Udp) 10 mg SL Q4H [facility] Stop: 07/20/21 11:51 Last Admin: 07/06/21 13:13 Dose: 10 mg Documented by: Morphine Sulfate (Morphine Sulfate 5 Mg/0.25 Ml Udp) 5 mg PO Q2H PRN PRN Reason: Pain or dyspnea Stop: 07/20/21 11:51 Nicotine (Nicotine 14 Mg/24 Hr Patch) 14 mg TD QAM [facility] Stop: 07/29/21 10:59 Last Admin: 07/06/21 09:12 Dose: 14 mg Documented by: Ondansetron HCl (Ondansetron Inj 2 Mg/Ml 2 Ml Vial) 4 mg IV Q4H PRN PRN Reason: Nausea &/or Vomiting Stop: 08/04/21 12:01 Ondansetron HCl (Ondansetron 4 Mg Od Tab) 4 mg SL Q4H PRN PRN Reason: Nausea &/or Vomiting Stop: 08/04/21 12:01
[2021-07-06] MEDS: MoRPHine SULFATE 2 MG/ML CARP IV PRN (15:35)
[2021-07-07] MEDS: MoRPHine SULFATE 10 MG/0.5 ML UDP SL SCH ×3 (01:35→08:54)
[2021-07-07] MEDS: DICLOFENAC SOD 1% GEL 100 GM TUBE EXT SCH (04:57)
[2021-07-07] MEDS: NICOTINE 14 MG/24 HR PATCH TD SCH (08:55)
[2021-07-07] MEDS: LIDOCAINE 5% 1 PATCH TD SCH (08:57)
--- NOTE | 2021-07-07 10:07 | Communication Note ---
Date of Service: July 07, 2021 Pronouncement: Asked by the Nurse to Pronounce On Examination: No response to any stimuli No respiration and audible heart sounds Pupils are widely dilated and fixed He was pronounced on 07/07/2021 at 09:43 AM [employer] notified. Dr Jong Haddad
--- NOTE | 2021-07-07 18:08 | Discharge Summary ---
Date of Service July 07, 2021 Admission HPI Per Admitting Provider 61-year-old male without significant past medical or surgical history who presents the ED for evaluation of lightheadedness, dizziness, urinating blood. Patient seen in the ED on 06/02 for complaints of bilateral hip pain. Hip x-ray showed evidence of bony metastatic disease. Patient was discharged home and advised for outpatient follow-up. Patient reports he has an appointment at [facility] in a couple of days. Patient reports ongoing " pain all over". This morning, patient reports he was very lightheaded and dizzy and short of breath. He has been urinating blood for the past 2 to 3 weeks. Reports passing clots that have been difficult to pass at times. He has been urinating frequently. He notes a large weight loss however cannot quantify the amount for me. Denies chest pain. No abdominal pain, nausea, vomiting, diarrhea. In the ED, labs show Hgb 6.2, platelets 83, creatinine 1.3, lactic acid 4.8. CT ABD/pelvis shows large infiltrative mass of the urinary bladder. Patient was initially hypotensive at 88/50, this improved with IVF. Patient was typed and crossed for 2 unit PRBC. Admission Exam Per Admitting Provider Constitutional: WD/WN, vitals as above Eyes: PERRL, conjunctivae normal, anicteric sclerae ENMT: external ear and nose normal, oropharynx normal Respiratory: normal respiratory effort, lungs clear to auscultation Cardiovascular: Rate/Rhythm: regular rate and regular rhythm Vessels: normal peripheral pulses Extremities: no edema Gastrointestinal (Abdomen): normal bowel sounds, soft, nontender, no hepatosp lenomegaly Musculoskeletal: Extremities: no cyanosis and no clubbing Lower extremity range of motion and movement limited due to pain Skin: no rashes, warm and dry Neurologic: PERRL, EOMI, accommodation nl, no face palsy, no dysarthria Psychiatric: A+Ox3, euthymic affect Principal Diagnosis High Grade Urothelial Cancer Discharge Data Allergies Allergy/AdvReac Type Severity Reaction Status Date / Time No Known Allergies Allergy Unverified 06/21/21 15:06 Consultations 06/21/21 15:13 ED Decision to Admit Stat 06/22/21 08:20 Consult Oncology Routine 06/25/21 10:54 Consult Palliative Care Routine 06/27/21 14:03 Consult Radiation Oncology Routine 07/05/21 12:02 Consult Palliative Care Routine Procedures Performed Operation Date: 06/24/21 11:30 Actual Procedures p Cystoscopy, Transurethral Resection Bladder Tumor(Not Applicable) - Sav Haque MD Ordered Studies 06/21/21 15:06 CT abd pelvis IV con only Stat CT chest diagnostic w con Stat 06/28/21 CT guide rad therapy pelvis Routine 06/30/21 09:01 CT angio chest PE protocol Routine 07/02/21 05:59 CT abd pelvis IV con only Urgent Hospital Course (1) Bladder mass: S/p Cystoscopy with Transurethral resection of bladder tumor on 06/24/21 Urine cytology from 06/23/21 and pathology showed- High grade urothelial carcinoma Has osseous metastasis as below s/p one XR therapy 06/29 Appreciate palliative care input and recommendation Pain control, appreciate Palliative Care input for pain management Comfort care status (2) Osseous metastasis: Imaging studies revealed: CT ABD/pelvis shows Large infiltrative mass of the urinary bladder is suggestive of a primary malignancy which demonstrates transmural spread of disease into the right perivesicular tissues and right hemipelvis. There are small adjacent soft tissue nodules compatible with local metastasis. The mass results in obstruction of the distal ureters with moderate to severe bilateral hydroureteronephrosis. There is a delayed right-sided nephrogram. Extensive osseous metastatic disease with questioned anterior epidural disease at L5. No acute pathologic fracture identified. Prominent subcentimeter iliac chain and inguinal lymph nodes are suspicious for lymphatic metastasis. CT chest shows evidence of extensive/diffuse osteoblastic metastatic disease. There are mildly enlarged left supraclavicular, mediastinal, and right hilar lymph nodes. These are suspicious for metastatic disease. There is a tiny cluster of nodules in the left upper lobe measuring up to 4 mm. These are likely on an inflammatory basis. (3) Acute blood loss anemia: s/p 6 units pRBC this admission (4) Lactic acidosis: (5) Thrombocytopenia: (6) Hyponatremia: Now with hypernatremia (7) Cardiomegaly: Persistent sinus tachycardia likely due to underlying malignancy. Continue lopressor 5mg IV Q 6 to avoid tachycardia which would cause discomfort (8) Comfort measures only status: Patient requested DNR/DNI status 07/04 Patient wishes to transition to comfort measures only after discussing with Palliative Care today. Orders are in. Dysphagia to thick/thins [employer] evaluation , patient unable to even clear his own secretions. He was placed on strict NPO yesterday but now that he is comfort, will place on a regular diet for comfort feeds Ileus -seen on CT A/P -no BM despite aggressive regimen past several days. continue dulcolax [place] daily Total Time Total Time Spent Total Time Spent (In Minutes): 20 minutes Discharge Plan Discharge Items Patient Disposition: Other Date/Time: 07/07/21 09:43
--- NOTE | 2021-07-15 05:34 | Coding Query ---
CODING QUERY To promote full compliance with coding requirements relating to patient care, provider participation is requested in all cases of diving coach uncertainty. Please assist us with the question(s) below: Coding Question(s): Please docuument the cause of . Thank you. Yandel Merritt [facility] Physician's Response(s): High Grade Urothelial Carcinoma Documented in Certificate Principal Diagnosis: "that condition established after study, to be chiefly responsible for occasioning the admission of the patient to the hospital for care." Co-Existing Principal Diagnosis: "when two or more diagnoses equally meet the criteria for principal diagnosis as determined by the circumstances of admission, diagnostic work up, and/or therapy provided, and the Alphabetic Index, Tabular List, or another coding guideline does not provide sequencing direction, any one of the diagnoses may be sequenced first." "When the physician has documented what appears to be a current diagnosis in the body of the record, but has not included the diagnosis in the final diagnostic statement, the physician should be asked whether the diagnosis should be added." (Source Coding [facility] 2 QTR90. p3-4) MISAEL
== END 2021-07-07 10:52 | disposition expired | DRG 669 ==
LOC: ED 13:14 → 2S 15:46 → SUATTDRO 15:46 → 2S 19:36 → 3N 07-06 00:21